=== PATIENT | female | born 1970 | race Caucasian/White ===

== ENCOUNTER 2016-11-25 23:03 | Emergency (ER) | payer OTHER ==
[~2016-11-25] VITALS: Ht 160 cm; Wt 55.1 kg
[~2016-11-25 23:03] MED LIST: ADVIN50/60 INH; ALBUAER2 INH; ATOM60CA PO; ATV/1 PO; BUPR100T8 PO; EPP3/2 IM; IBUP-1427 PO; IPRASOL34 NEB; PRLSR20 PO; PRM625 PO; TOPI100T20 PO; TOPI50TA16 PO
[2016-11-25 23:15] VITALS: TEMP 36.8; Ht 160 cm; Wt 55.1 kg
[2016-11-25] MEDS ORDERED: DiphenhydrAMINE HCL 50 MG/ML VIAL IV STA (23:37)
[2016-11-25] MEDS ORDERED: KETOROLAC TROMETHAMINE 30 MG/ML VIAL IV STA (23:37)
[2016-11-25] MEDS ORDERED: PROCHLORPERAZINE 5 MG/ML 2 ML VIAL IV STA (23:37)
[2016-11-25] MEDS ORDERED: SODIUM CHLORIDE 0.9% 1000ML 1,000 ML IV ONE (23:45)
[2016-11-25 23:55] LABS: BASO % 1.6 %; BASO ABS # 0.09 K/uL (0-0.2); COMPLETE YES; EOS % 16.6 %; HEMATOCRIT 38.9 % (37-47); LYMPH % 40.3 %; MEAN CELL VOLUME 87.8 fL (80-100); MEAN CORPUSCULAR HEMOGLOBIN 29.3 pg (25-34); MEAN CORPUSCULAR HGB CONC 33.4 g/dl (32-36); MEAN PLATELET VOLUME 11.1 fL (7.4-10.4); MONO % 4.4 %; NEUT % 37.1 %; PLATELET COUNT 218 K/uL (130-400); RED BLOOD COUNT 4.43 M/uL (4.2-5.4); WHITE BLOOD COUNT 5.71 K/uL (4.8-10.8)
[2016-11-26 00:35] LABS: THYROID STIMULATING HORMONE 1.85 uIu/ml (0.300-4.500)
[2016-11-26 00:36] LABS: ALB/GLOB RATIO 1.2 (0.9-2); BUN/CREATININE RATIO 9.7 (10-20); CREATININE 0.94 mg/dl (0.60-1.20)
[2016-11-26 00:37] LABS: MAGNESIUM 2.2 mg/dl (1.8-2.4); POTASSIUM 3.5 mmol/L (3.5-5.1)
[2016-11-26] MEDS ORDERED: SERT25TA PO (00:57)
[2016-11-26 01:58] VITALS: BP 96/59; PULSE 68; O2SAT 95
--- NOTE | 2016-11-26 07:10 | DIAGNOSTIC IMAGING REPORT ---
HEAD CT NONCONTRAST CT DOSE: 729.78 mGycm HISTORY: Headache TECHNIQUE: Multiaxial CT images of the head were performed without the use of intravenous contrast. Automated exposure control was utilized for this study. Comparison: Head CT 12/12/2015. Findings: Mild mucosal thickening within the ethmoid air cells. The mastoid air cells are clear. Scattered hypodense foci within the white matter consistent with the patient's history of multiple sclerosis. This remains unchanged. The calvarium and skull base are intact. The ventricles and sulci are within normal limits. There is no mass, hematoma, midline shift, or acute infarct. Impression: No significant change compared to the prior study. No acute intracranial abnormality. Electronically signed by: Diego Valente M.D. 11/26/2016 7:09 AM
--- NOTE | 2016-11-28 11:57 | EMERGENCY ROOM VISIT NOTE ---
History First contact with patient: 23:26 Chief Complaint: HEADACHE Stated Complaint: SEVERE MIGRAINE, WORST ONE EVER History of Present Illness The patient is a 46 year old female who presents to the Emergency Room with complaints of a severe migraine headache. The patient has a history of migraine headaches in the past, and feels this is the worst that she has ever had. Her symptoms have been slowly worsening over 4 days. She typically takes Topamax at home for prevention, however this has not relieved her symptoms. [id number] analgesics has not provided relief either. The patient rates her discomfort a 9/10. The location is similar to her normal migraine, being the right side of her head, however the intensity is much worse. She has not had recent fever or chills. No recent illness. No numbness or paresthesias. The patient has been seen intermittently in this facility for migraines. She is not on a treatment plan. Review of Systems More than 10 systems were reviewed and otherwise negative with the exception of history of present illness. Past Medical/Surgical History Medical Problems: (1) Anxiety disorder (2) Asthma (3) Bipolar disorder (4) Chronic post-traumatic stress disorder (5) Depression (6) Fibromyalgia (7) Gastroesophageal reflux disease (8) Gastroparesis (9) History of renal calculi (10) Hyperthyroidism (11) Irritable colon (12) Migraine (13) MS (multiple sclerosis) (14) Panic disorder Surgical Problems: (1) Status post appendectomy (2) Status post delivery (3) Status post hernia repair (4) Status post hysterectomy Family History Cancer FHx: seizures Heart disease Hypertension Lung disease Social History Smoking Status: Never Smoker Alcohol Use: none Drug Use: none Marital Status: single Housing Status: lives with family Occupation Status: unemployed, other Current/Historical Medications Scheduled Atomoxetine (Strattera), 60 MG PO DAILY Bupropion (Wellbutrin Sr), 100 MG PO QAM Estrogens, Conjugated (Premarin), 0.625 MG PO QAM Omeprazole (Prilosec), 20 MG PO BID Sertraline (Zoloft), 25 MG PO DAILY Topiramate (Topamax), 50 MG PO HS Topiramate (Topamax), 100 MG PO QAM Scheduled PRN Albuterol (Ventolin), 2 PUFFS INH QID PRN for Chest Tightness/Wheezing Epinephrine (Epipen), 0.3 MG IM UD PRN for ALLERGIC REACTION Fluticasone Prop/Salmeterol (Advair Diskus 500/50 60 Dose), 1 PUFF INH BID PRN for Shortness of Breath Ipratropium-Albuterol (Duoneb), 1 VIAL NEB UD PRN for asthma flare Lorazepam (Ativan), 1 MG PO TID PRN for Anxiety Allergies Coded Allergies: Chicken Allergy (Verified Allergy, Severe, THROAT SWELLS, 11/26/16) Ciprofloxacin (Verified Allergy, Severe, SWELLS UP THROAT AND CAN'T BREATHE, 11/26/16) Egg (Verified Allergy, Severe, THROAT SWELLS, 11/26/16) Poultry Meal (Verified Allergy, Severe, "[place]" -- Throat swelling, ) Soy Protein (Verified Allergy, Severe, Unknown, 11/26/16) Yellow Jacket (Verified Allergy, Severe, SWELLS THROAT, 11/26/16) Sesame Seed (Verified Allergy, Intermediate, "[place]" - Unknown rxn, ) Sumatriptan (Verified Allergy, Intermediate, throat swelling, 11/26/16) [place] Seed (Verified Allergy, Intermediate, Unknown, 11/26/16) Quinolones (Verified Allergy, Mild, ITCHY RASH ON HEAD,CHEST,ARMS DURING IV INFUSION, 11/26/16) itchy rash on head, chest, arms during IV infusion. Beef (Unverified Allergy, Unknown, UNKNOWN, 11/26/16) Fish (Unverified Allergy, Unknown, THROAT SWELLS, 11/26/16) Oxycodone (Verified Allergy, Unknown, airway edema, 11/26/16) Tomato (Verified Allergy, Unknown, ., 11/26/16) Aspirin (Verified Adverse Reaction, Mild, UPSET STOMACH, 11/26/16) Physical Exam Vital Signs Date Time Temp Pulse Resp B/P Pulse Ox O2 Delivery O2 Flow Rate FiO2 11/26/16 01:58 68 20 96/59 95 11/26/16 00:55 65 20 103/59 96 Room Air 11/25/16 23:38 69 11/25/16 23:15 36.8 71 16 120/71 99 Room Air Pain Rating (0-10): 5.0 Physical Exam VITALS: Vitals are noted on the nurse's note and reviewed by myself. Vital signs stable. GENERAL: Well-developed, well-nourished, white female, who is in no acute distress and resting comfortably. Patient is cooperative with the examination. HEAD: Normocephalic atraumatic. NECK: Supple without nuchal rigidity. No lymphadenopathy. No thyromegaly. Cervical spine is nontender. HEART: Regular rate and rhythm without murmurs gallops or rubs. LUNGS: Clear to auscultation bilaterally without wheezes, rales or rhonchi. No retractions or accessory muscle use. ABDOMEN: Positive normal bowel sounds x 4. Soft, nontender, without masses or organomegaly. No guarding or rebound tenderness. MUSCULOSKELETAL: No muscle atrophy, erythema, or edema noted. Full range of motion without joint tenderness in all extremities. NEURO: Patient was alert and oriented to person place and time. CN II through XII grossly intact. No focal neurological deficits SKIN: The skin was without rashes, erythema, edema, or bruising. Capillary reflex less than 2 seconds. Medical Decision & Procedures ER Provider Diagnostic Interpretation: HEAD CT NONCONTRAST CT DOSE: 729.78 mGycm HISTORY: Headache TECHNIQUE: Multiaxial CT images of the head were performed without the use of intravenous contrast. Automated exposure control was utilized for this study. Comparison: Head CT 12/12/2015. Findings: Mild mucosal thickening within the ethmoid air cells. The mastoid air cells are clear. Scattered hypodense foci within the white matter consistent with the patient's history of multiple sclerosis. This remains unchanged. The calvarium and skull base are intact. The ventricles and sulci are within normal limits. There is no mass, hematoma, midline shift, or acute infarct. Impression: No significant change compared to the prior study. No acute intracranial abnormality. Laboratory Results 11/25/16 23:42 Red Blood Count 4.43, Mean Corpuscular Volume 87.8, Mean Corpuscular Hemoglobin 29.3, Mean Corpuscular Hemoglobin Concent 33.4, Mean Platelet Volume 11.1, Neutrophils (%) (Auto) 37.1, Lymphocytes (%) (Auto) 40.3, Monocytes (%) (Auto) 4.4, Eosinophils (%) (Auto) 16.6, Basophils (%) (Auto) 1.6, Neutrophils # (Auto ) 2.12, Lymphocytes # (Auto) 2.30, Monocytes # (Auto) 0.25, Eosinophils # (Auto ) 0.95, Basophils # (Auto) 0.09 11/25/16 23:42 Test 11/25/16 23:42 White Blood Count 5.71 K/uL (4.8-10.8) Red Blood Count 4.43 M/uL (4.2-5.4) Hemoglobin 13.0 g/dL (12.0-16.0) Hematocrit 38.9 % (37-47) Mean Corpuscular Volume 87.8 fL (80-100) Mean Corpuscular Hemoglobin 29.3 pg (25-34) Mean Corpuscular Hemoglobin Concent 33.4 g/dl (32-36) Platelet Count 218 K/uL (130-400) Mean Platelet Volume 11.1 fL (7.4-10.4) Neutrophils (%) (Auto) 37.1 % Lymphocytes (%) (Auto) 40.3 % Monocytes (%) (Auto) 4.4 % Eosinophils (%) (Auto) 16.6 % Basophils (%) (Auto) 1.6 % Neutrophils # (Auto) 2.12 K/uL (1.4-6.5) Lymphocytes # (Auto) 2.30 K/uL (1.2-3.4) Monocytes # (Auto) 0.25 K/uL (0.11-0.59) Eosinophils # (Auto) 0.95 K/uL (0-0.5) Basophils # (Auto) 0.09 K/uL (0-0.2) RDW Standard Deviation 42.8 fL (36.4-46.3) RDW Coefficient of Variation 13.3 % (11.5-14.5) Immature Granulocyte % (Auto) 0.0 % Immature Granulocyte # (Auto) 0.00 K/uL (0.00-0.02) Anion Gap 8.0 mmol/L (3-11) Est Creatinine Clear Calc Drug Dose 62.5 ml/min Estimated GFR () 84.9 Estimated GFR (Non- 73.3 BUN/Creatinine Ratio 9.7 (10-20) Calcium Level 9.0 mg/dl (8.5-10.1) Magnesium Level 2.2 mg/dl (1.8-2.4) Total Bilirubin 0.5 mg/dl (0.2-1) Aspartate Amino Transf (AST/SGOT) 17 U/L (15-37) Alanine Aminotransferase (ALT/SGPT) 16 U/L (12-78) Alkaline Phosphatase 92 U/L (45-117) Total Protein 6.8 gm/dl (6.4-8.2) Albumin 3.7 gm/dl (3.4-5.0) Globulin 3.1 gm/dl (2.5-4.0) Albumin/Globulin Ratio 1.2 (0.9-2) Thyroid Stimulating Hormone (TSH) 1.850 uIu/ml (0.300-4.500) Chemistry Specimen Hemolysis Medications Administered Medications (Trade) Dose Ordered Sig/Robert Route Start Time Stop Time Status Last Admin Dose Admin Sodium Chloride (Nss 1000ml) 1,000 ml @ 999 mls/hr Q1H1M ONCE IV 11/25/16 23:45 11/26/16 00:45 DC 11/25/16 23:53 999 MLS/HR Diphenhydramine HCl (Benadryl Inj) 25 mg NOW STAT IV 11/25/16 23:37 11/25/16 23:39 DC 11/25/16 23:53 25 MG Prochlorperazine Edisylate (Compazine Inj) 10 mg NOW STAT IV 11/25/16 23:37 11/25/16 23:39 DC 11/25/16 23:53 10 MG Ketorolac Tromethamine (Toradol Inj) 30 mg NOW STAT IV 11/25/16 23:37 11/25/16 23:40 DC 11/25/16 23:54 30 MG ED Course Physical exam and history were performed. Nursing notes and EMR were reviewed. Patient appears to have a headache that she describes as the worst one that she has ever had. She does not present with signs of meningitis or encephalitis. IV access was established and labs were obtained. The patient was hydrated with normal saline. She was given 30 mg IV Toradol, 10 mg I V Compazine, and 25 mg IV Benadryl. She was sent to CT scan for imaging. The patient's blood work is as above and was reviewed. She does not have a significant elevated white blood cell count, anemia, bandemia, or gross electrolyte imbalance. TSH is nondiagnostic. CT scan of the head does not show acute findings. On reexamination, the patient was sleeping very comfortably in her emergency department bed. I did wake her up, and she had near complete resolution of her discomfort. I discussed the option of lumbar puncture, and we elected to defer this as the patient had significant improvement of her symptoms. This appears reasonable. I do recommend the patient follow with her primary care physician for further care and management. She was otherwise invited back to the ER with any new, worsening, or concerning symptoms. The chart was completed utilizing [employer] Speech Voice Recognition Software. Grammatical errors, random word insertions, pronoun errors, and incomplete sentences are an occasional consequence of this system due to software limitations, ambient noise, and hardware issues. Any formal questions or concerns about the content, text, or information contained within the body of this dictation should be directly addressed to the provider for clarification. . Medical Decision The differential diagnosis includes, but is not limited to: acute intracranial bleed, meningitis, encephalitis, mass or mass effect, sinusitis, infection, tumor, headache, temporal arteritis and carbon monoxide exposure, and migraine. Impression Primary Impression: Headache Departure Information Dispostion Home / Self-Care Condition GOOD Referrals Miesha Robison D.O. (PCP) Forms HOME CARE DOCUMENTATION FORM, IMPORTANT VISIT INFORMATION Patient Instructions A Signature Page, [facility] [place] [employer] Additional Instructions You were seen and evaluated today on an emergency basis only. This is not a substitute for, or an effort to provide, complete comprehensive medical care. It is not possible to recognize and treat all injuries or illnesses in a single emergency department visit. For this reason it is recommended that you followup with your primary care physician this week for ongoing care and evaluation. DO NOT drive, drink alcohol, operate machinery, or perform dangerous activities today. You were given medications in the ER that can affect your ability to safely function or operate a vehicle. Rest today in a quiet, peaceful, dark environment and get a full 8-10 hrs of sleep tonight. Avoid loud noises, smoke/smoking, alcohol, bright lights, stress, or physical exertion today to minimize the chance the headache may return. Continue current medications. Ibuprofen(Motrin, Advil) may be used for fever or pain. Use 600mg every six hours as needed. Take with food. Avoid using more than 2400mg in a 24 hour period. Do not use 2400mg per day for more than three consecutive days without physician direction. Prolonged inappropriate use can lead to stomach upset or ulcers. (AND/OR) Acetaminophen(Tylenol) may be used for fever or pain. Use 1000mg every six hours as needed. Avoid using more than 4000mg in a 24 hour period. Return to the ER for passing out, worsening headache, vision problems, neck stiffness/pain, fevers, vomiting, worsening of your condition, or as needed.
[2016-12-23] MEDS ORDERED: ATOM60CA PO (10:49)
[2016-12-23] MEDS ORDERED: PRLSR20 PO (10:49)
[2016-12-23] MEDS ORDERED: KETO10TA PO (10:49)
[2016-12-23] MEDS ORDERED: CLR10 PO (10:49)
[2016-12-23] MEDS ORDERED: LORA-741 PO (10:49)
[2016-12-23] MEDS ORDERED: PROM25TA9 PO (10:49)
[2016-12-23] MEDS ORDERED: FLVHFA44 INH (10:49)
[2016-12-23] MEDS ORDERED: ALBINS/ INH (10:49)
[2016-12-23] MEDS ORDERED: LAMO25TA PO (10:49)
[2016-12-23] MEDS ORDERED: CHOL1TAB42 PO (10:50)
== END 2016-11-26 02:00 | disposition home or self-care (01) ==
LOC: C.EDB 23:05
DX: R51 Headache (principal); F41.9 Anxiety disorder, unspecified; F31.9 Bipolar disorder, unspecified; F32.9 Major depressive disorder, single episode, unspecified; K31.84 Gastroparesis; K21.9 Gastro-esophageal reflux disease without esophagitis; G35 Multiple sclerosis; J45.909 Unspecified asthma, uncomplicated; E05.90 Thyrotoxicosis, unspecified without thyrotoxic crisis or storm; Z90.710 Acquired absence of both cervix and uterus; Z98.890 Other specified postprocedural states; Z79.899 Other long term (current) drug therapy; Z88.5 Allergy status to narcotic agent; Z88.6 Allergy status to analgesic agent; Z88.8 Allergy status to other drugs, medicaments and biological substances; Z91.018 Allergy to other foods; Z80.9 Family history of malignant neoplasm, unspecified; Z82.0 Family history of epilepsy and other diseases of the nervous system; Z82.49 Family history of ischemic heart disease and other diseases of the circulatory system

== ENCOUNTER → 2016-12-30 | Day surgery (SDC) | payer OTHER ==
[2016-12-23 10:53] VITALS: BMI 22.0
[~2016-12-30] VITALS: Ht 160 cm; Wt 55.8 kg
[~2016-12-30] MED LIST changes: -ADVIN50/60 INH; +ALBINS/ INH; -ALBUAER2 INH; -ATV/1 PO; +CHOL1TAB42 PO; +CLR10 PO; +FLVHFA44 INH; -IBUP-1427 PO; -IPRASOL34 NEB; +KETO10TA PO; +LAMO25TA PO; +LIDOCAINE HCL 2% 2 ML VIAL (20MG/ML) ONE; +LORA-741 PO; +MIDAZOLAM HCL 1 MG/ML 2ML VIAL ONE; +PROM25TA9 PO; +PROPOFOL IV EMULSION 10 MG/ML 20 ML VIAL IV ONE; +SERT25TA PO; -TOPI100T20 PO; -TOPI50TA16 PO
[2016-12-30 10:10] VITALS: Ht 160 cm; Wt 55.8 kg
--- NOTE | 2016-12-30 12:05 | GI REPORT ---
Procedure Date: 12/30/2016 10:55 AM Procedure: Upper GI endoscopy Indications: Dysphagia Medicines: See the Anesthesia note for documentation of the administered medications Complications: No immediate complications. Estimated Blood Loss: Estimated blood loss: none. Procedure: Pre-Anesthesia Assessment: - ASA Grade Assessment: III - A patient with severe systemic disease. After obtaining informed consent, the endoscope was passed under direct vision. Throughout the procedure, the patient's blood pressure, pulse, and oxygen saturations were monitored continuously. The scope was introduced through the mouth, and advanced to the second part of duodenum. The upper GI endoscopy was accomplished without difficulty. The patient tolerated the procedure well. Findings: Mucosal changes including ringed esophagus and longitudinal furrows were found in the entire esophagus. No obstruction was noted. A guidewire was placed and the scope was withdrawn. Dilation was performed with a Savary dilator with no resistance at 15 mm, 16 mm, 17 mm and 18 mm. The scope was re-introduced after passage of each of the dilators. There was no trauma with passage of the 15 mm, 16 mm, 17, mm dilators. There were multiple tears throughout the esophagus after passage of the 18 mm dilator. Biopsies were taken with a cold forceps for histology. The entire examined stomach was normal. Biopsies were taken with a cold forceps for histology. The examined duodenum was normal. Biopsies were taken with a cold forceps for histology. Impression: - Esophageal mucosal changes consistent with eosinophilic esophagitis. Dilated. Biopsied. - Normal stomach. Biopsied. - Normal examined duodenum. Biopsied. Recommendation: - Await pathology results. Discharge pt home. Clear liquids only today, then adv diet as tolerated. Cont PPI, topical steroids. Dayne Burrell M.D. Dayne Burrell MD 12/30/2016 12:05:02 PM This report has been signed electronically. Note Initiated On: 12/30/2016 10:55 AM I attest to the content of the Intraoperative Record and orders documented therein, exceptions below
--- NOTE | 2016-12-30 13:13 | Endo History and Physical ---
History & Physical Date of Service: Dec 30, 2016. Chief Complaint: HX OF COLON POLYPS AND DYSPHAGIA Referring Physician: DR. PAGAN History of Present Illness Eoe, diarrhea Past Medical History Other Psy. Disorders, Asthma, Gastrointestinal Disorder, Anxiety, Reflux, Thyroid Disease, Other, Depression Past Surgical History Hx Cardiac Surgery: No Hx Internal Defibrillator: No Hx Pacemaker: No Hx Abdominal Surgery: Yes (JAG/BSO, , HERNIA REPAIR, LAP APPY, LAP REMI) Hx of Implantable Prosthesis: No Hx Post-Op Nausea and Vomiting: No Hx Cancer Surgery: No Hx Thoracic Surgery: No Hx Orthopedic: No Hx Urinary Tract Surgery: Yes (LITHOTRIPSY) Family History Colon CA Social History Smoking Status: Never Smoker Hx Substance Use: No Hx Alcohol Use: Yes (SOCIALLY) Allergies Coded Allergies: Chicken Allergy (Verified Allergy, Severe, THROAT SWELLS, 12/23/16) Ciprofloxacin (Verified Allergy, Severe, SWELLS UP THROAT AND CAN'T BREATHE, 12/23/16) Egg (Verified Allergy, Severe, THROAT SWELLS, 12/23/16) Poultry Meal (Verified Allergy, Severe, "[place]" -- Throat swelling, ) Soy Protein (Verified Allergy, Severe, Unknown, 12/23/16) Yellow Jacket (Verified Allergy, Severe, SWELLS THROAT, 12/23/16) Sesame Seed (Verified Allergy, Intermediate, "Sesame" - Unknown rxn, ) Sumatriptan (Verified Allergy, Intermediate, throat swelling, 12/23/16) [place] Seed (Verified Allergy, Intermediate, Unknown, 12/23/16) Quinolones (Verified Allergy, Mild, ITCHY RASH ON HEAD,CHEST,ARMS DURING IV INFUSION, 12/23/16) itchy rash on head, chest, arms during IV infusion. Beef (Verified Allergy, Unknown, UNKNOWN, 12/30/16) Diphenhydramine (Verified Allergy, Unknown, IV GIVEN-"FELT DOPED UP AFTER INJECTED", 12/23/16) Fish (Verified Allergy, Unknown, THROAT SWELLS, 12/30/16) Oxycodone (Verified Allergy, Unknown, airway edema, 12/23/16) Tomato (Verified Allergy, Unknown, ., 12/23/16) Aspirin (Verified Adverse Reaction, Mild, UPSET STOMACH, 12/23/16) Current Medications Reported Home Medications Medications Dose Route/Sig Max Daily Dose Days Date Category Dose Instructions Vitamin D (Cholecalciferol) 5,000 Unit Tab 1 Tab PO QAM 12/23/16 Reported Lamictal (Lamotrigine) 25 Mg Tab 25 Mg PO BID 12/23/16 Reported INCREASE DOSAGE PER INSTRUCTIONS. Toradol (Ketorolac Tromethamine) 10 Mg Tab 10 Mg PO DIRECTED PRN 12/23/16 Reported Phenergan (Promethazine HCl) 25 Mg Tab 25 Mg PO Q4H PRN 12/23/16 Reported Proventil 0.083% 2.5MG/3ML (Albuterol Sulf) 2.5 Mg/3 Ml Nebu 2.5 Mg INH QID PRN 12/23/16 Reported Flovent Hfa (Fluticasone Propionate) 120 Puffs/5280 Mcg Aero 2 Puffs INH BID PRN 30 12/23/16 Reported Claritin (Loratadine) 10 Mg Tab 10 Mg PO QAM 12/23/16 Reported Ativan (Lorazepam) 0.5 Mg Tab 0.5 Mg PO TID PRN 12/23/16 Reported Strattera (Atomoxetine HCl) 60 Mg Cap 60 Mg PO QAM 12/23/16 Reported Prilosec (Omeprazole) 20 Mg Capcr 20 Mg PO BID 12/23/16 Reported Zoloft (Sertraline HCl) 25 Mg Tab 25 Mg PO QAM 11/26/16 Reported Wellbutrin Sr (Bupropion HCl) 100 Mg Ertab 100 Mg PO QAM 05/27/16 Reported Epipen (Epinephrine) 0.3 Mg/0.3 Ml Inj 0.3 Mg IM UD PRN 11/03/12 Reported Premarin (Estrogens Conjugated) 0.625 Mg Tab 0.625 Mg PO QAM 09/07/09 Reported Vital Signs Weight (Kilograms): 55.8 Height (Feet): 5 Height (Inches): 3 Date Time Temp Pulse Resp B/P Pulse Ox O2 Delivery O2 Flow Rate FiO2 12/30/16 12:58 71 20 103/65 98 Room Air 12/30/16 12:33 58 20 116/65 98 Room Air 12/30/16 12:18 64 20 116/65 97 Room Air 12/30/16 12:01 69 20 137/61 98 Room Air 12/30/16 10:17 37.1 65 20 131/70 99 Room Air Physical Exam General Appearance: no apparent distress Respiratory/Chest: Respiratory effort: no dyspnea Auscultation: breath sounds normal, CTA except as noted Cardiovascular: Heart Auscultation: RRR Abdomen: Bowel Sounds: normal Assessment and Plan EGD, cscopy
--- NOTE | 2016-12-30 13:14 | Discharge Instructions ---
Endoscopy Patient Instructions Date / Procedure(s) Performed Dec 30, 2016. Colonoscopy, EGD Allergy Information Coded Allergies: Chicken Allergy (Verified Allergy, Severe, THROAT SWELLS, 12/23/16) Ciprofloxacin (Verified Allergy, Severe, SWELLS UP THROAT AND CAN'T BREATHE, 12/23/16) Egg (Verified Allergy, Severe, THROAT SWELLS, 12/23/16) Poultry Meal (Verified Allergy, Severe, "[place]" -- Throat swelling, ) Soy Protein (Verified Allergy, Severe, Unknown, 12/23/16) Yellow Jacket (Verified Allergy, Severe, SWELLS THROAT, 12/23/16) Sesame Seed (Verified Allergy, Intermediate, "[place]" - Unknown rxn, ) Sumatriptan (Verified Allergy, Intermediate, throat swelling, 12/23/16) [place] Seed (Verified Allergy, Intermediate, Unknown, 12/23/16) Quinolones (Verified Allergy, Mild, ITCHY RASH ON HEAD,CHEST,ARMS DURING IV INFUSION, 12/23/16) itchy rash on head, chest, arms during IV infusion. Beef (Verified Allergy, Unknown, UNKNOWN, 12/30/16) Diphenhydramine (Verified Allergy, Unknown, IV GIVEN-"FELT DOPED UP AFTER INJECTED", 12/23/16) Fish (Verified Allergy, Unknown, THROAT SWELLS, 12/30/16) Oxycodone (Verified Allergy, Unknown, airway edema, 12/23/16) Tomato (Verified Allergy, Unknown, ., 12/23/16) Aspirin (Verified Adverse Reaction, Mild, UPSET STOMACH, 12/23/16) Discharge Date / Findings Dec 30, 2016. Eosinophilic esophagitis - dilated Diminutive colon polyp Provider Instructions Activity Restrictions - No exercising or heavy lifting for 24 hours. - Do not drink alcohol the day of the procedure. - Do not drive a car or operate machinery until the day after the procedure. - Do not make any important decisions or sign important papers in 24 hours after the procedure. Following Day: - Return to full activity which may include returning to work/school. Diet Clear liquids only today. Then tomorrow, advance your diet slowly. Treatment For Common After Affects For mild abdominal pain, bloating, or excessive gas: - Rest - Eat lightly - Lie on right side Follow-Up Information Follow-up with DR. PAGAN as scheduled Anesthesia Information What You Should Know You have had a procedure that required some medicine to reduce anxiety and discomfort. This treatment is called moderate sedation. After receiving the treatment, you may be sleepy, but you will be able to breathe on your own. The effects of the treatment may last for several hours. Follow these instructions along with Activity/Diet recommendations noted above: * Do NOT do anything where dizziness or clumsiness would be dangerous. * Rest quietly at home today, then you can be up and about tomorrow. * Have a responsible person stay with you the rest of today. * You may have had an I.V. today. If so, you may take the dressing off later today. Recommendations Call your doctor if: * Trouble breathing * Continuous vomiting for more than 24 hours * Temperature above 101 degrees * Severe abdominal pain or bloating * Pain not relieved by pain medicine ordered * There is increased drainage or redness from any incision * A large amount of rectal bleeding greater than 2-3 tablespoons. (If you had a polyp/s removed or have hemorrhoids, a small amount of blood - from the rectum is to be expected.) * You have any unanswered questions or concerns. IN THE EVENT OF A SERIOUS EMERGENCY, GO TO THE NEAREST EMERGENCY ROOM Your discharge instructions were prepared by provider Dayne Ortez. Patient Instructions Signature Page Oneida Cortes Patient (or Guardian) Signature/Date: I have read and understand the instructions given to me by my caregivers. Caregiver/RN/Doctor Signature/Date: The above-named patient and/or guardian has received patient instructions on this date. + Original Patient Signature Page (only) stays with chart. Please make copy for patient.
[2016-12-30 13:17] VITALS: BP 103/65; PULSE 69; O2SAT 98
--- NOTE | 2016-12-30 14:02 | Anesthesiology Progress Note ---
Anesthesia Post Op Note Date & Time Dec 30, 2016 at 14:03 Vital Signs Pain Intensity: 0 Vital Signs Past 12 Hours Date Time Temp Pulse Resp B/P Pulse Ox O2 Delivery O2 Flow Rate FiO2 12/30/16 13:17 69 20 103/65 98 Room Air 12/30/16 12:58 71 20 108/62 98 Room Air 12/30/16 12:33 58 20 116/65 98 Room Air 12/30/16 12:18 64 20 116/65 97 Room Air 12/30/16 12:01 69 20 137/61 98 Room Air 12/30/16 10:17 37.1 65 20 131/70 99 Room Air Notes Mental Status: alert / awake / arousable, participated in evaluation Pt Amnestic to Procedure: Yes Nausea / Vomiting: adequately controlled Pain: adequately controlled Airway Patency, RR, SpO2: stable & adequate BP & HR: stable & adequate Hydration State: stable & adequate Anesthetic Complications: no major complications apparent
[2017-01-02 00:33] LABS: O&P GIARDIA AG NOT DETECTED (NOT DETECTED)
== END | disposition home or self-care (01) ==
LOC: C.GI 09:27
PROVIDERS: ATTEND Internal Medicine Gastroenterology
DX: R19.7 Diarrhea, unspecified (principal); K20.0 Eosinophilic esophagitis; K63.89 Other specified diseases of intestine; K29.70 Gastritis, unspecified, without bleeding; J45.909 Unspecified asthma, uncomplicated; K21.9 Gastro-esophageal reflux disease without esophagitis; E07.9 Disorder of thyroid, unspecified; F32.9 Major depressive disorder, single episode, unspecified; Z90.49 Acquired absence of other specified parts of digestive tract; Z98.890 Other specified postprocedural states; Z80.0 Family history of malignant neoplasm of digestive organs; Z88.1 Allergy status to other antibiotic agents; Z88.5 Allergy status to narcotic agent; Z88.8 Allergy status to other drugs, medicaments and biological substances

== ENCOUNTER → 2017-04-12 | Outpatient (CLI) | payer OTHER ==
[~2017-04-12] MED LIST changes: +BUPR200T2 PO; +FRCT/ PO; +GADAVIST IV PRN; +IPRASOL4 INH; -LIDOCAINE HCL 2% 2 ML VIAL (20MG/ML) ONE; -MIDAZOLAM HCL 1 MG/ML 2ML VIAL ONE; +MONT1TAB3 PO; -PROPOFOL IV EMULSION 10 MG/ML 20 ML VIAL IV ONE; +TOPI100T20 PO; +ZNTT/150 PO
--- NOTE | 2017-04-12 15:56 | DIAGNOSTIC IMAGING REPORT ---
BRAIN COMBO FOR MS CLINICAL HISTORY: Left arm numbness. 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 COMPARISON STUDY: MRI of the brain December 12, [address] November 26, 2016. TECHNIQUE: Utilizing a 1.5 Greta magnet, multiplanar, multiecho imaging of the brain was performed pre and postcontrast administration according to the multiple sclerosis protocol. Injection of 5.5 cc of Gadavist IV was uneventful. FINDINGS: There are no areas of restricted diffusion. No acute intracranial hemorrhage, midline shift or mass effect is present. Ventricular system is normal. Basilar cisterns are patent. There are no extra axial collections. Flow-voids for the major intracranial vessels are present. Numerous white matter T2 hyperintense foci are similar to exam of December 12, 2015. No new areas of signal abnormality are present. There is no parenchymal enhancement to suggest active demyelination by MRI. Calvarial signal is normal. Orbits and sinuses are unremarkable. IMPRESSION: 1. No acute intracranial findings. 2. No change in numerous T2 hyperintense foci since MRI of December 12, 2015. These remain nonspecific but could be seen in the setting of demyelinating disease. No evidence for active demyelination by MRI. Electronically signed by: Hank Mac M.D. 04/12/2017 3:55 PM Dictated Date/Time: 04/12/2017 3:50 PM
== END | disposition home or self-care (01) ==
LOC: C.MRI 14:17
PROVIDERS: ATTEND Psychiatry & Neurology Neurology
DX: G37.9 Demyelinating disease of central nervous system, unspecified (principal); R25.1 Tremor, unspecified; R20.0 Anesthesia of skin

== ENCOUNTER → 2017-05-31 | Outpatient (CLI) | payer OTHER ==
[~2017-05-31] MED LIST changes: -BUPR200T2 PO; -FRCT/ PO; -GADAVIST IV PRN; -IPRASOL4 INH; -MONT1TAB3 PO; -TOPI100T20 PO; -ZNTT/150 PO
--- NOTE | 2017-05-31 14:30 | MAMMOGRAPHY REPORT ---
BILATERAL DIGITAL DIAGNOSTIC MAMMOGRAM TOMOSYNTHESIS WITH CAD: 05/31/2017 CLINICAL HISTORY: 47-year-old woman presents for follow-up of regional microcalcifications in the rig ht upper outer quadrant. Also time of annual bilateral screening exam. Family history of breast can cer = paternal grandmother, paternal aunt and paternal first cousin. TECHNIQUE: Bilateral CC and MLO 2-D digital anterolisthesis images, spot magnification right CC and M L views were obtained. Current study was also evaluated with a Computer Aided Detection (CAD) system . COMPARISON: Comparison is made to exams dated: 10/30/2016 mammogram, 04/30/2016 mammogram, 04/16/2016 ma mmogram, 03/05/2010 mammogram, 02/27/2010 mammogram, and 08/18/2006 mammogram - [facility]. BREAST COMPOSITION: There are scattered areas of fibroglandular density in both breasts. FINDINGS: There are a few round microcalcifications scattered bilaterally that appears similar datin g back to the 2015 mammograms, but are increased compared to the 02/27/2010 mammograms. No obvious n ew mass, developing asymmetry or focal area of architectural distortion is seen. Spot magnification views of the right breast redemonstrate regional punctate microcalcifications in the upper outer midd le one third of the breast. These appear very similar to the spot magnification views performed 07/2016 and 04/30/2016 and most likely represent benign fibrocystic change. However after discussing these findings and images with the patient, given that none of the calcifications were seen on the 20 10 exams and with her family history of breast cancer, we will opt to sample the calcifications as op posed to continued follow-up with spot magnification views. IMPRESSION: ACR BI-RADS CATEGORY 4B: INTERMEDIATE SUSPICION FOR MALIGNANCY 1. Right breast stereotactic guided biopsy is recommended for punctate regional microcalcifications in the upper outer quadrant. Although the microcalcifications do not appear significantly changed ba sed on spot magnification views dating back to April 2016, they were not present on the 2009 mammogram s and with her family history of breast cancer she would prefer to sample at this time. 2. Stable mammographic appearance of the left breast, without mammographic evidence of lesions a. A dvise follow-up in 1 year. These results and recommendations were discussed with the patient at the time of the exam. She tenta tively scheduled the right breast stereotactic biopsy prior to leaving our department. Approximately 10% of breast cancers are not detected with mammography. A negative mammographic report should not delay biopsy if a clinically suggestive mass is present. Lizzette Macias M.D. ay/:05/31/2017 11:49:40 Personal Injury Attorney: Maya BRADSHAW(Rogelio)(Faith), [facility] letter sent: Abnormal 4/5 BI-RADS Code: ACR BI-RADS Category 4B: Intermediate Suspicion For Malignancy
== END | disposition home or self-care (01) ==
LOC: C.MAMM 11:02
PROVIDERS: ATTEND Student in an Organized Health Care Education/Training Program
DX: R92.0 Mammographic microcalcification found on diagnostic imaging of breast (principal)

== ENCOUNTER → 2017-06-15 | Outpatient (CLI) | payer OTHER ==
--- NOTE | 2017-06-15 13:23 | Discharge Instructions ---
Discharge Instructions Procedure Procedure Date: Jun 15, 2017. Reason for visit: Right Calcs. Discharge Discharge Date: Jun 15, 2017. Discharge Diagnosis: post right breast stereotactic guided biopsy Instructions Activity Recommendations: Additional Limitations (see below) Return to School/Work: no limitations Recommended Home Diet: No Limitations Provider Instructions: ACTIVITY RECOMMENDATIONS: * No lifting, pushing, pulling or exercising the affected side for three days. RETURN TO SCHOOL/WORK: * You may return to work/school after the procedure, but do not perform any strenuous activities for 24 to 48 hours. MEDICATIONS: * Tylenol (two 325 mg) every four to six hours if needed for mild pain (if not allergic to Tylenol). DIET: * Resume previous diet. SPECIAL CARE INSTRUCTIONS: * Keep biopsy site dry for 24 hours. May shower after 24 hours, but do not soak (bathe) incision. * May remove Tegaderm (plastic patch) tomorrow AFTER showering. * Leave the steri-strips on for one week. Allow the steri-strips to fall off by themselves. If not off after one week, you may remove them. You may place a Bandaid crosswise over the strips, if desired. * Apply ice 10 minutes on and 10 minutes off as needed. * Wear a bra at bedtime to sleep more comfortably for 2-3 days. * Your referring physician should have the results after approximately 5 to 7 business days. * Call for unusual bleeding, fever, drainage, etc or if you have any questions call [phone] during normal business hours or after hours call Dr Macias, . FOLLOW UP VISIT: Follow-up with Referring Physician as scheduled. Allergies Coded Allergies: Chicken Allergy (Verified Allergy, Severe, THROAT SWELLS, 12/23/16) Ciprofloxacin (Verified Allergy, Severe, SWELLS UP THROAT AND CAN'T BREATHE, 12/23/16) Egg (Verified Allergy, Severe, THROAT SWELLS, 12/23/16) Poultry Meal (Verified Allergy, Severe, "[place]" -- Throat swelling, ) Soy Protein (Verified Allergy, Severe, Unknown, 12/23/16) Yellow Jacket (Verified Allergy, Severe, SWELLS THROAT, 12/23/16) Sesame Seed (Verified Allergy, Intermediate, "Sesame" - Unknown rxn, ) Sumatriptan (Verified Allergy, Intermediate, throat swelling, 12/23/16) [place] Seed (Verified Allergy, Intermediate, Unknown, 12/23/16) Quinolones (Verified Allergy, Mild, ITCHY RASH ON HEAD,CHEST,ARMS DURING IV INFUSION, 12/23/16) itchy rash on head, chest, arms during IV infusion. Beef (Verified Allergy, Unknown, UNKNOWN, 12/30/16) Diphenhydramine (Verified Allergy, Unknown, IV GIVEN-"FELT DOPED UP AFTER INJECTED", 12/23/16) Fish (Verified Allergy, Unknown, THROAT SWELLS, 12/30/16) Oxycodone (Verified Allergy, Unknown, airway edema, 12/23/16) Tomato (Verified Allergy, Unknown, ., 12/23/16) Aspirin (Verified Adverse Reaction, Mild, UPSET STOMACH, 12/23/16) [place] Recommendations: Call your doctor if: * Temperature above 101 degrees * Pain not relieved by pain medicine ordered * There is increased drainage or redness from any incision * You have any unanswered questions or concerns. Your Doctors Instructions noted above were prepared by provider Lizzette Macias. Patient Signature Section: Patient Instructions Signature Page Oneida Cortes Patient (or Guardian) Signature/Date: I have read and understand the instructions given to me by my caregivers. Caregiver/RN/Doctor Signature/Date: The above-named patient and/or guardian has received patient instructions on this date. + Original Patient Signature Page (only) stays with chart. Please make copy for patient.
--- NOTE | 2017-06-15 13:32 | MAMMOGRAPHY REPORT ---
UNILATERAL RIGHT DIGITAL DIAGNOSTIC MAMMOGRAM: 06/15/2017 CLINICAL HISTORY: Status post stereotactic biopsy of a grouping of punctate microcalcifications in th e upper outer anterior right breast. Please refer to the report from right breast stereotactic biopsy performed at the same time for full detail. IMPRESSION: POST PROCEDURE IMAGING FOR MARKER PLACEMENT Please refer to the report from right breast stereotactic biopsy performed at the same time for full detail. Approximately 10% of breast cancers are not detected with mammography. A negative mammographic report should not delay biopsy if a clinically suggestive mass is present. Lizzette Macias M.D. ay/:06/15/2017 13:24:56 Clinical Research Monitor: Mary BRADSHAW(Rogelio)(M), [facility] BI-RADS Code: Post Procedure Imaging For Marker Placement
--- NOTE | 2017-06-15 15:51 | MAMMOGRAPHY REPORT ---
STEREOTACTIC GUIDED BIOPSY RIGHT BREAST: 06/15/2017 CLINICAL HISTORY: Indeterminate clustered punctate microcalcifications in the upper outer middle to a nterior right breast. Patient presents for stereotactic biopsy for definitive characterization. Fam deven history of breast cancer. COMPARISON: Comparison is made to exams dated: 05/31/2017 mammogram, 10/30/2016 mammogram, 04/30/2016 ma mmogram, 04/16/2016 mammogram, 03/05/2010 mammogram, and 02/27/2010 mammogram - [facility]. PATIENT CONSENT: After explaining the risks, benefits and alternatives of the procedure to the patien t, informed consent was obtained both verbally and in writing. Specific risks include: Bleeding, inf ection, puncture of adjacent structure, pain, nontarget biopsy, sampling error, metal allergy and med ication reaction. PROCEDURE DESCRIPTION: A time-out was performed and the right breast was confirmed as the site of bio psy. The patient was placed prone on the stereotactic biopsy table and the breast was placed in CC fr om above compression. A parent educator image was obtained that demonstrated the clustered microcalcifications in question. They are amenable to sterotactic biopsy. Then +15 and -15 stereo pair images were obt ained. The calcifications were targeted utilizing the coordinates obtained by the computer. The skin was prepped with Betadine. 1% Lidocaine with and without epinipherine was administered as local anes thesia. A small skin incision was made. Through the incision, the needle was inserted to the depth d etermined by the computer. 6 samples were obtained using a re3Diva 9-gauge vacuum-assisted biopsy device. The specimen radiograph demonstrated several technical support representative microcalcifications, there fore, a metallic marker was placed at the biopsy site. There was no immediate complication. Hemostasi s was achieved after several minutes of manual compression. The samples were sent to pathology in 1 appropriately labeled container. Postprocedure CC and ML views of the right breast were obtained. There is a new dumbbell-shaped met allic biopsy marker and no significant hematoma in the upper outer middle one third of the breast at the site of the biopsied microcalcifications. There is superior displacement of the biopsy marker cl ip on the post procedure ML view by 15 mm, likely due to accordion effect. IMPRESSION: STEREOTACTIC GUIDED BIOPSY Status post right breast stereotactic guided biopsy of clustered punctate microcavitation seen in the upper outer quadrant, with biopsy marker placed at the site. The patient will receive notification of the biopsy results from her referring physician. Lizzette Macias M.D. ay/:06/15/2017 13:41:56 Attending Technologist: Maisha Bellamy RT(R)(M), [facility] Smash Hand: Mray Eid RT(R)(M), [facility]
== END | disposition home or self-care (01) ==
LOC: C.MAMM 12:24
PROVIDERS: ATTEND Student in an Organized Health Care Education/Training Program
DX: R92.0 Mammographic microcalcification found on diagnostic imaging of breast (principal)

== ENCOUNTER → 2017-10-18 | Day surgery (SDC) | payer OTHER ==
[2017-10-13 08:59] VITALS: Ht 158.8 cm
[~2017-10-18] VITALS: Ht 158.8 cm
[~2017-10-18] MED LIST changes: -ALBINS/ INH; -ATOM60CA PO; +BENZOCAIN/TETRACA/BUTAM SPRAY 200 APPLN/20 GM SPRY ONE; -BUPR100T8 PO; +BUPR200T2 PO; +ETOMIDATE 2 MG/ML 20 ML VIAL IV ONE; +FRCT/ PO; +IPRASOL4 INH; -KETO10TA PO; -LAMO25TA PO; +LIDOCAINE HCL 2% 2 ML VIAL (20MG/ML) ONE; -LORA-741 PO; +MONT1TAB3 PO; -PRM625 PO; +PROPOFOL IV EMULSION 10 MG/ML 20 ML VIAL IV ONE; -SERT25TA PO; +SODIUM CHLORIDE 0.9% 500ML 500 ML IV ONE; +TOPI100T20 PO; +ZNTT/150 PO
--- NOTE | 2017-10-18 10:46 | Endo History and Physical ---
History & Physical Date of Service: Oct 18, 2017. Chief Complaint: Eosinphilic Esophagitis, GERD Referring Physician: Ricki History of Present Illness Eoe Past Medical History Other Psy. Disorders, Asthma, Gastrointestinal Disorder, Anxiety, Reflux, Thyroid Disease, Other, Depression Past Surgical History Hx Cardiac Surgery: No Hx Internal Defibrillator: No Hx Pacemaker: No Hx Abdominal Surgery: Yes (JAG BSO, , HERNIA REPAIR, LAP APPY, LAP REMI, D&C) Hx of Implantable Prosthesis: No Hx Post-Op Nausea and Vomiting: No Hx Cancer Surgery: No Hx Thoracic Surgery: No Hx Orthopedic: No Hx Urinary Tract Surgery: Yes (LITHOTRIPSY) Family History Colon CA Social History Smoking Status: Never Smoker Hx Substance Use: No Hx Alcohol Use: No Allergies Coded Allergies: Chicken Allergy (Verified Allergy, Severe, THROAT SWELLS, 10/13/17) Ciprofloxacin (Verified Allergy, Severe, SWELLS UP THROAT AND CAN'T BREATHE, 10/13/17) Egg (Verified Allergy, Severe, THROAT SWELLS, 10/13/17) Poultry Meal (Verified Allergy, Severe, "[place]" -- Throat swelling, 10/13) Soy Protein (Verified Allergy, Severe, Unknown, 10/13/17) Yellow Jacket (Verified Allergy, Severe, SWELLS THROAT, 10/13/17) Sesame Seed (Verified Allergy, Intermediate, "Sesame" - Unknown rxn, 10/13) Sumatriptan (Verified Allergy, Intermediate, throat swelling, 10/13/17) [place] Seed (Verified Allergy, Intermediate, Unknown, 10/13/17) Quinolones (Verified Allergy, Mild, ITCHY RASH ON HEAD,CHEST,ARMS DURING IV INFUSION, 10/13/17) itchy rash on head, chest, arms during IV infusion. Beef (Verified Allergy, Unknown, UNKNOWN, 10/13/17) Diphenhydramine (Verified Allergy, Unknown, IV GIVEN-"FELT DOPED UP AFTER INJECTED", 10/13/17) Fish (Verified Allergy, Unknown, THROAT SWELLS, 10/13/17) Oxycodone (Verified Allergy, Unknown, airway edema, 10/13/17) Tomato (Verified Allergy, Unknown, ., 10/13/17) Aspirin (Verified Adverse Reaction, Mild, UPSET STOMACH, 10/13/17) Current Medications Reported Home Medications Medications Dose Route/Sig Max Daily Dose Days Date Category Fioricet (Acetaminophen/Butalbital/Caffeine) 1 Ea Tab 1 Tab PO UD PRN 10/13/17 Reported Topamax (Topiramate) 100 Mg Tab 100 Mg PO BID 10/13/17 Reported Duoneb (Ipratropium-Albuterol) 3 Ml Nebu 1 Treatment INH Q4H PRN 10/13/17 Reported Singulair (Montelukast Sodium) 10 Mg Tab 10 Mg PO HS 10/13/17 Reported Zantac (Ranitidine HCl) 150 Mg Tab 150 Mg PO BID 10/13/17 Reported Wellbutrin Sr (Bupropion HCl) 200 Mg Ertab 200 Mg PO QPM 10/13/17 Reported Vitamin D (Cholecalciferol) 5,000 Unit Tab 1 Tab PO QPM 12/23/16 Reported Phenergan (Promethazine HCl) 25 Mg Tab 25 Mg PO TID PRN 12/23/16 Reported Flovent Hfa (Fluticasone Propionate) 120 Puffs/5280 Mcg Aero 2 Puffs INH BID PRN 12/23/16 Reported Claritin (Loratadine) 10 Mg Tab 10 Mg PO QAM 12/23/16 Reported Prilosec (Omeprazole) 20 Mg Capcr 20 Mg PO BID 12/23/16 Reported Epipen (Epinephrine) 0.3 Mg/0.3 Ml Inj 0.3 Mg IM UD PRN 11/03/12 Reported Vital Signs Weight (Kilograms): 0 Height (Feet): 5 Height (Inches): 2.5 Date Time Temp Pulse Resp B/P (MAP) Pulse Ox O2 Delivery O2 Flow Rate FiO2 10/18/17 10:09 36.9 75 18 118/63 (81) 98 Room Air Physical Exam General Appearance: no apparent distress Respiratory/Chest: Respiratory effort: no dyspnea Cardiovascular: Heart Auscultation: RRR Abdomen: Inspection & Palpation: soft Assessment and Plan Dysphagia - EGD
--- NOTE | 2017-10-18 11:22 | Discharge Instructions ---
Endoscopy Patient Instructions Date / Procedure(s) Performed Oct 18, 2017. EGD Allergy Information Coded Allergies: Chicken Allergy (Verified Allergy, Severe, THROAT SWELLS, 10/13/17) Ciprofloxacin (Verified Allergy, Severe, SWELLS UP THROAT AND CAN'T BREATHE, 10/13/17) Egg (Verified Allergy, Severe, THROAT SWELLS, 10/13/17) Poultry Meal (Verified Allergy, Severe, "[place]" -- Throat swelling, 10/13) Soy Protein (Verified Allergy, Severe, Unknown, 10/13/17) Yellow Jacket (Verified Allergy, Severe, SWELLS THROAT, 10/13/17) Sesame Seed (Verified Allergy, Intermediate, "Sesame" - Unknown rxn, 10/13) Sumatriptan (Verified Allergy, Intermediate, throat swelling, 10/13/17) [place] Seed (Verified Allergy, Intermediate, Unknown, 10/13/17) Quinolones (Verified Allergy, Mild, ITCHY RASH ON HEAD,CHEST,ARMS DURING IV INFUSION, 10/13/17) itchy rash on head, chest, arms during IV infusion. Beef (Verified Allergy, Unknown, UNKNOWN, 10/13/17) Diphenhydramine (Verified Allergy, Unknown, IV GIVEN-"FELT DOPED UP AFTER INJECTED", 10/13/17) Fish (Verified Allergy, Unknown, THROAT SWELLS, 10/13/17) Oxycodone (Verified Allergy, Unknown, airway edema, 10/13/17) Tomato (Verified Allergy, Unknown, ., 10/13/17) Aspirin (Verified Adverse Reaction, Mild, UPSET STOMACH, 10/13/17) Discharge Date / Findings Oct 18, 2017. Irregular Z line - biopsied, hiatal hernia. Provider Instructions Activity Restrictions - No exercising or heavy lifting for 24 hours. - Do not drink alcohol the day of the procedure. - Do not drive a car or operate machinery until the day after the procedure. - Do not make any important decisions or sign important papers in 24 hours after the procedure. Following Day: - Return to full activity which may include returning to work/school. Diet Start your diet with liquids and light foods (jello, soup, juice, toast). Then eat your usual diet if not nauseated. Treatment For Common After Affects For mild abdominal pain, bloating, or excessive gas: - Rest - Eat lightly - Lie on right side Follow-Up Information Follow-up with Ricki as scheduled Anesthesia Information What You Should Know You have had a procedure that required some medicine to reduce anxiety and discomfort. This treatment is called moderate sedation. After receiving the treatment, you may be sleepy, but you will be able to breathe on your own. The effects of the treatment may last for several hours. Follow these instructions along with Activity/Diet recommendations noted above: * Do NOT do anything where dizziness or clumsiness would be dangerous. * Rest quietly at home today, then you can be up and about tomorrow. * Have a responsible person stay with you the rest of today. * You may have had an I.V. today. If so, you may take the dressing off later today. Recommendations Call your doctor if: * Trouble breathing * Continuous vomiting for more than 24 hours * Temperature above 101 degrees * Severe abdominal pain or bloating * Pain not relieved by pain medicine ordered * There is increased drainage or redness from any incision * A large amount of rectal bleeding greater than 2-3 tablespoons. (If you had a polyp/s removed or have hemorrhoids, a small amount of blood - from the rectum is to be expected.) * You have any unanswered questions or concerns. IN THE EVENT OF A SERIOUS EMERGENCY, GO TO THE NEAREST EMERGENCY ROOM Your discharge instructions were prepared by provider Dayne Ortez. Patient Instructions Signature Page Oneida Cortes Patient (or Guardian) Signature/Date: I have read and understand the instructions given to me by my caregivers. Caregiver/RN/Doctor Signature/Date: The above-named patient and/or guardian has received patient instructions on this date. + Original Patient Signature Page (only) stays with chart. Please make copy for patient.
--- NOTE | 2017-10-18 12:11 | GI REPORT ---
Procedure Date: 10/18/2017 11:17 AM Procedure: Upper GI endoscopy Indications: Heartburn Medicines: See the Anesthesia note for documentation of the administered medications Complications: No immediate complications. Estimated Blood Loss: Estimated blood loss: none. Procedure: Pre-Anesthesia Assessment: - ASA Grade Assessment: III - A patient with severe systemic disease. After obtaining informed consent, the endoscope was passed under direct vision. Throughout the procedure, the patient's blood pressure, pulse, and oxygen saturations were monitored continuously. The On-site loaner was introduced through the mouth, and advanced to the second part of duodenum. The upper GI endoscopy was accomplished without difficulty. The patient tolerated the procedure well. Findings: The UES appeared patuolous. There was a mild eccentric ring and mild mucosal bridging at 20 cm. There were faint furrows and rings in the mid esophagus. There was no evidence of clinically significant esophageal obstruction lesion. The GE junction was 34 cm. There was marked stripes of erythema in the antrum. The pylorus was patulous. The stomach mucosa was otherwise normal. The duodenum was normal. A guidewire was placed and the scope was withdrawn. Dilation was performed at the gastroesophageal junction with a Savary dilator with no resistance at 15 mm, 16 mm, 17 mm and 18 mm. There was no trauma post dilation. Biopsies done throughout the esophagus. Impression: - Fibrotic changes in the esophagus suggestive of chronic Eoe, but no significant esophageal obstruction. Large bore dilator passed, biopsies done. - Antral gastritis. I suspect her dysphagia may be related to dysmotility, rather than obstruction. Recommendation: - Discharge patient to home. Follow up biopsy results. Dayne Burrell M.D. Dayne Burrell MD 10/18/2017 12:10:30 PM This report has been signed electronically. Note Initiated On: 10/18/2017 11:17 AM I attest to the content of the Intraoperative Record and orders documented therein, exceptions below
--- NOTE | 2017-10-18 12:14 | Discharge Instructions ---
Endoscopy Patient Instructions Date / Procedure(s) Performed Oct 18, 2017. EGD Allergy Information Coded Allergies: Chicken Allergy (Verified Allergy, Severe, THROAT SWELLS, 10/13/17) Ciprofloxacin (Verified Allergy, Severe, SWELLS UP THROAT AND CAN'T BREATHE, 10/13/17) Egg (Verified Allergy, Severe, THROAT SWELLS, 10/13/17) Poultry Meal (Verified Allergy, Severe, "[place]" -- Throat swelling, 10/13) Soy Protein (Verified Allergy, Severe, Unknown, 10/13/17) Yellow [place]et (Verified Allergy, Severe, SWELLS THROAT, 10/13/17) Sesame Seed (Verified Allergy, Intermediate, "Sesame" - Unknown rxn, 10/13) Sumatriptan (Verified Allergy, Intermediate, throat swelling, 10/13/17) [place] Seed (Verified Allergy, Intermediate, Unknown, 10/13/17) Quinolones (Verified Allergy, Mild, ITCHY RASH ON HEAD,CHEST,ARMS DURING IV INFUSION, 10/13/17) itchy rash on head, chest, arms during IV infusion. Beef (Verified Allergy, Unknown, UNKNOWN, 10/13/17) Diphenhydramine (Verified Allergy, Unknown, IV GIVEN-"FELT DOPED UP AFTER INJECTED", 10/13/17) Fish (Verified Allergy, Unknown, THROAT SWELLS, 10/13/17) Oxycodone (Verified Allergy, Unknown, airway edema, 10/13/17) Tomato (Verified Allergy, Unknown, ., 10/13/17) Aspirin (Verified Adverse Reaction, Mild, UPSET STOMACH, 10/13/17) Discharge Date / Findings Oct 18, 2017. Stigmata of chronic eosinophilic esophagitis. Dilator passed. Provider Instructions Activity Restrictions - No exercising or heavy lifting for 24 hours. - Do not drink alcohol the day of the procedure. - Do not drive a car or operate machinery until the day after the procedure. - Do not make any important decisions or sign important papers in 24 hours after the procedure. Following Day: - Return to full activity which may include returning to work/school. Diet Start your diet with liquids and light foods (jello, soup, juice, toast). Then eat your usual diet if not nauseated. Treatment For Common After Affects For mild abdominal pain, bloating, or excessive gas: - Rest - Eat lightly - Lie on right side Follow-Up Information Follow-up with Ricki as scheduled Anesthesia Information What You Should Know You have had a procedure that required some medicine to reduce anxiety and discomfort. This treatment is called moderate sedation. After receiving the treatment, you may be sleepy, but you will be able to breathe on your own. The effects of the treatment may last for several hours. Follow these instructions along with Activity/Diet recommendations noted above: * Do NOT do anything where dizziness or clumsiness would be dangerous. * Rest quietly at home today, then you can be up and about tomorrow. * Have a responsible person stay with you the rest of today. * You may have had an I.V. today. If so, you may take the dressing off later today. Recommendations Call your doctor if: * Trouble breathing * Continuous vomiting for more than 24 hours * Temperature above 101 degrees * Severe abdominal pain or bloating * Pain not relieved by pain medicine ordered * There is increased drainage or redness from any incision * A large amount of rectal bleeding greater than 2-3 tablespoons. (If you had a polyp/s removed or have hemorrhoids, a small amount of blood - from the rectum is to be expected.) * You have any unanswered questions or concerns. IN THE EVENT OF A SERIOUS EMERGENCY, GO TO THE NEAREST EMERGENCY ROOM Your discharge instructions were prepared by provider Dayne Ortez. Patient Instructions Signature Page Oneida Cortes Patient (or Guardian) Signature/Date: I have read and understand the instructions given to me by my caregivers. Caregiver/RN/Doctor Signature/Date: The above-named patient and/or guardian has received patient instructions on this date. + Original Patient Signature Page (only) stays with chart. Please make copy for patient.
[2017-10-18 12:30] VITALS: BP 126/92; PULSE 73; O2SAT 99
--- NOTE | 2017-10-18 12:45 | Anesthesiology Progress Note ---
Anesthesia Post Op Note Date & Time Oct 18, 2017 at 12:45 Vital Signs Pain Intensity: 0 Vital Signs Past 12 Hours Date Time Temp Pulse Resp B/P (MAP) Pulse Ox O2 Delivery O2 Flow Rate FiO2 10/18/17 12:30 73 20 126/92 (103) 99 Room Air 10/18/17 12:15 87 20 114/78 (90) 97 Room Air 10/18/17 11:58 95 20 124/86 (99) 98 Room Air 10/18/17 10:09 36.9 75 18 118/63 (81) 98 Room Air Notes Mental Status: alert / awake / arousable, participated in evaluation Pt Amnestic to Procedure: Yes Nausea / Vomiting: adequately controlled Pain: adequately controlled Airway Patency, RR, SpO2: stable & adequate BP & HR: stable & adequate Hydration State: stable & adequate Anesthetic Complications: no major complications apparent
== END | disposition home or self-care (01) ==
LOC: C.GI 09:42
PROVIDERS: ATTEND Internal Medicine Gastroenterology
DX: R12 Heartburn (principal); K29.70 Gastritis, unspecified, without bleeding; K20.0 Eosinophilic esophagitis; K21.9 Gastro-esophageal reflux disease without esophagitis; J45.909 Unspecified asthma, uncomplicated; F41.9 Anxiety disorder, unspecified; F32.9 Major depressive disorder, single episode, unspecified; Z98.890 Other specified postprocedural states; Z90.49 Acquired absence of other specified parts of digestive tract; Z90.89 Acquired absence of other organs; Z80.0 Family history of malignant neoplasm of digestive organs; Z91.012 Allergy to eggs; Z91.018 Allergy to other foods; Z79.899 Other long term (current) drug therapy

== ENCOUNTER 2018-01-03 15:43 | Emergency (ER) | payer OTHER ==
[~2018-01-03] VITALS: Ht 160 cm; Wt 50.4 kg
[~2018-01-03 15:43] MED LIST changes: -BENZOCAIN/TETRACA/BUTAM SPRAY 200 APPLN/20 GM SPRY ONE; -ETOMIDATE 2 MG/ML 20 ML VIAL IV ONE; -LIDOCAINE HCL 2% 2 ML VIAL (20MG/ML) ONE; -PROPOFOL IV EMULSION 10 MG/ML 20 ML VIAL IV ONE; +RANI150T85 PO; -SODIUM CHLORIDE 0.9% 500ML 500 ML IV ONE; -ZNTT/150 PO
[2018-01-03 16:00] VITALS: TEMP 36.8; Ht 160 cm; Wt 50.4 kg
[2018-01-03] MEDS ORDERED: KETOROLAC TROMETHAMINE 30 MG/ML VIAL IV STA (17:32)
[2018-01-03] MEDS ORDERED: ONDANSETRON INJ 2 MG/ML 2 ML VIAL IV STA (17:32)
--- NOTE | 2018-01-03 17:32 | EMERGENCY ROOM VISIT NOTE ---
History Report prepared by Shaheen: Javy Yang Under the Supervision of: Dr. Wilmer Mccormack M.D. First contact with patient: 17:26 Chief Complaint: ABDOMINAL PAIN Stated Complaint: LOWER ABDOMINAL PAIN, SEVER BACK PAIN Nursing Triage Summary: left lower abd pain radiating into back pt cannot see pcp until Wednesday n/v/d History of Present Illness The patient is a 47 year old female with a history of kidney infections and kidney stones who presents to the Emergency Room with complaints of waxing and waning lower abdominal pain that started 2 days ago. She says that the pain radiates to both sides of her back as well. The patient states that this pain is similar to her previous episodes of kidney stones and kidney infections. She states that the pain was initially only on her left side, but is now on both sides of her abdomen. The patient says that she does not see a urologist. She notes that she has been taking Tylenol for the pain. Source of History: patient Onset: 2 days ago Position: abdomen Symptom Intensity: has had pain like this in past Quality: other (similar pain to when had kidney stones and infections) Timing: waxes/wanes Associated Symptoms: + back pain (bilateral) Note: No other associated symptoms noted. Review of Systems See HPI for pertinent positives & negatives. A total of 10 systems reviewed and were otherwise negative. Past Medical & Surgical Medical Problems: (1) Anxiety disorder (2) Asthma (3) Bipolar disorder (4) Chronic post-traumatic stress disorder (5) Depression (6) Fibromyalgia (7) Gastroesophageal reflux disease (8) Gastroparesis (9) History of renal calculi (10) Hyperthyroidism (11) Irritable colon (12) Migraine (13) MS (multiple sclerosis) (14) Panic disorder Surgical Problems: (1) Status post appendectomy (2) Status post delivery (3) Status post hernia repair (4) Status post hysterectomy Family History Cancer FHx: seizures Heart disease Hypertension Lung disease Social History Smoking Status: Never Smoker Alcohol Use: none Drug Use: none Marital Status: single Housing Status: lives with family Occupation Status: unemployed, other Current/Historical Medications Scheduled Bupropion Hcl (Wellbutrin Sr), 300 MG PO DAILY Cholecalciferol (Vitamin D), 1 TAB PO QPM Dicyclomine Hcl (Bentyl), 1 CAP PO TID Loratadine (Claritin), 10 MG PO QAM Montelukast Sodium (Singulair), 10 MG PO HS Omeprazole (Prilosec), 20 MG PO BID Ranitidine (Zantac), 150 MG PO BID Topiramate (Topamax), 100 MG PO BID Scheduled PRN Acetamin/Butalbital/Caffeine (Fioricet), 1 TAB PO UD PRN for Migraine Epinephrine (Epipen), 0.3 MG IM UD PRN for ALLERGIC REACTION Fluticasone Propionate (Flovent Hfa), 2 PUFFS INH BID PRN for Shortness of Breath Ipratropium-Albuterol (Duoneb), 1 TREATMENT INH Q4H PRN for SOB/Wheezing Promethazine Hcl (Phenergan), 25 MG PO TID PRN for Nausea Allergies Coded Allergies: Chicken Allergy (Verified Allergy, Severe, THROAT SWELLS, 01/03/18) Ciprofloxacin (Verified Allergy, Severe, SWELLS UP THROAT AND CAN'T BREATHE, 01/03/18) Egg (Verified Allergy, Severe, THROAT SWELLS, 01/03/18) Poultry Meal (Verified Allergy, Severe, "[place]" -- Throat swelling, ) Soy Protein (Verified Allergy, Severe, Unknown, 01/03/18) Yellow Jacket (Verified Allergy, Severe, SWELLS THROAT, 01/03/18) Sesame Seed (Verified Allergy, Intermediate, "Sesame" - Unknown rxn, ) Sumatriptan (Verified Allergy, Intermediate, throat swelling, 01/03/18) [place] Seed (Verified Allergy, Intermediate, Unknown, 01/03/18) Quinolones (Verified Allergy, Mild, ITCHY RASH ON HEAD,CHEST,ARMS DURING IV INFUSION, 01/03/18) itchy rash on head, chest, arms during IV infusion. Beef (Verified Allergy, Unknown, UNKNOWN, 01/03/18) Diphenhydramine (Verified Allergy, Unknown, IV GIVEN-"FELT DOPED UP AFTER INJECTED", 01/03/18) Fish (Verified Allergy, Unknown, THROAT SWELLS, 01/03/18) Oxycodone (Verified Allergy, Unknown, airway edema, 01/03/18) Tomato (Verified Allergy, Unknown, ., 01/03/18) Aspirin (Verified Adverse Reaction, Mild, UPSET STOMACH, 01/03/18) Physical Exam Vital Signs Date Time Temp Pulse Resp B/P (MAP) Pulse Ox O2 Delivery O2 Flow Rate FiO2 01/03/18 19:23 69 18 122/74 100 Room Air 01/03/18 18:06 67 01/03/18 16:00 36.8 77 20 109/69 99 Room Air Physical Exam GENERAL: Patient is a healthy-appearing well-nourished 47 year old female. HEAD: Normocephalic atraumatic EYES: Ocular movements intact pupils equal and react to light OROPHARYNX mucous membranes are moist no exudates present no erythema or edema present NECK: Supple no nuchal rigidity CHEST: Good equal expansion LUNGS: Clear and equal to auscultation CARDIAC: Normal S1 and S2 ABDOMEN: Soft nontender no guarding BACK: No CVA tenderness EXTREMITIES: No pain upon palpation normal muscle strength in all groups no clubbing cyanosis or edema NEURO: Patient is following commands and answering questions appropriately. Alert and oriented x3 Cranial Nerves 2-12 grossly intact Medical Decision & Procedures ER Provider Diagnostic Interpretation: CT results as stated below per my review and radiologist interpretation: ABD/PELVIS WITHOUT FOR STONE HISTORY: 47 years-old Female Pt c/o left flank pain acute left-sided flank pain COMPARISON: CT abdomen and pelvis 01/22/2016 TECHNIQUE: Multiple axial CT images of the abdomen and pelvis were obtained without contrast. A dose lowering technique was used consistent with the principals of ALARA. FINDINGS: Mild subsegmental bibasilar atelectasis. There is no peritoneum or pneumatosis identified. Imaged inferior cardiac chambers are unremarkable. Prior cholecystectomy. Indeterminate low attenuating 6 mm ovoid lesion of the anterior right hepatic lobe is unchanged suggesting hepatic cyst. Liver is otherwise unremarkable. Spleen and adrenal glands are unremarkable. Ovoid circumscribed low attenuating lesion of the pancreatic tail is redemonstrated, 1.8 x 1.2 cm which has slightly increased in size from comparison, previously measuring approximately 1.3 x 1.0 cm on study dated 01/22/2016. Punctate bilateral nephrolithiasis with a 3 mm nonobstructing calculus of the superior pole left kidney. No ureteral calculi or obstructive uropathy identified. Ureters appear normal in caliber bilaterally. The urinary bladder is unremarkable. No adnexal mass lesions. Uterus appears surgically absent. Aorta is normal in course and caliber. No bulky adenopathy. No bowel obstruction or focal bowel wall thickening identified. There is moderate stool volume throughout the colon. The visualized appendix appears normal without evidence of acute appendicitis. Air-filled nondilated loops of small bowel within the lower abdomen and pelvis are likely physiologic. Soft tissues are unremarkable. Transitional lumbosacral anatomy is noted with pseudoarticulation of an elongated left L5 transverse process with the adjacent sacral ala. IMPRESSION: 1. Bilateral nephrolithiasis without ureteral calculi or obstructive uropathy. 2. No bowel obstruction or focal bowel wall thickening. 3. Suggested constipation. 4. Ovoid circumscribed cystic appearing lesion of the pancreatic tail redemonstrated measuring up to 1.8 cm, mildly increased in size from comparison study dated 01/22/2016. Further nonemergent evaluation with a follow-up pancreatic protocol MRI recommended. 5. Prior cholecystectomy. The above report was generated using voice recognition software. It may contain grammatical, syntax or spelling errors. Electronically signed by: Marty Jackson M.D. 01/03/2018 6:42 PM Dictated Date/Time: 01/03/2018 6:31 PM Laboratory Results 01/03/18 18:00 Red Blood Count 4.63, Mean Corpuscular Volume 86.4, Mean Corpuscular Hemoglobin 29.4, Mean Corpuscular Hemoglobin Concent 34.0, Mean Platelet Volume 10.5, Neutrophils (%) (Auto) 42.8, Lymphocytes (%) (Auto) 35.4, Monocytes (%) (Auto) 6.6, Eosinophils (%) (Auto) 12.4, Basophils (%) (Auto) 2.6, Neutrophils # (Auto ) 2.29, Lymphocytes # (Auto) 1.89, Monocytes # (Auto) 0.35, Eosinophils # (Auto ) 0.66, Basophils # (Auto) 0.14 01/03/18 18:00 Test 01/03/18 17:20 01/03/18 18:00 Urine Color YELLOW Urine Appearance CLEAR (CLEAR) Urine pH 7.0 (4.5-7.5) Urine Specific [place] 1.003 (1.000-1.030) Urine Protein NEG (NEG) Urine Glucose (UA) NEG (NEG) Urine Ketones NEG (NEG) Urine Occult Blood NEG (NEG) Urine Nitrite NEG (NEG) Urine Bilirubin NEG (NEG) Urine Urobilinogen NEG (NEG) Urine Leukocyte Esterase NEG (NEG) White Blood Count 5.34 K/uL (4.8-10.8) Red Blood Count 4.63 M/uL (4.2-5.4) Hemoglobin 13.6 g/dL (12.0-16.0) Hematocrit 40.0 % (37-47) Mean Corpuscular Volume 86.4 fL (80-100) Mean Corpuscular Hemoglobin 29.4 pg (25-34) Mean Corpuscular Hemoglobin Concent 34.0 g/dl (32-36) Platelet Count 221 K/uL (130-400) Mean Platelet Volume 10.5 fL (7.4-10.4) Neutrophils (%) (Auto) 42.8 % Lymphocytes (%) (Auto) 35.4 % Monocytes (%) (Auto) 6.6 % Eosinophils (%) (Auto) 12.4 % Basophils (%) (Auto) 2.6 % Neutrophils # (Auto) 2.29 K/uL (1.4-6.5) Lymphocytes # (Auto) 1.89 K/uL (1.2-3.4) Monocytes # (Auto) 0.35 K/uL (0.11-0.59) Eosinophils # (Auto) 0.66 K/uL (0-0.5) Basophils # (Auto) 0.14 K/uL (0-0.2) RDW Standard Deviation 43.1 fL (36.4-46.3) RDW Coefficient of Variation 13.6 % (11.5-14.5) Immature Granulocyte % (Auto) 0.2 % Immature Granulocyte # (Auto) 0.01 K/uL (0.00-0.02) Anion Gap 6.0 mmol/L (3-11) Est Creatinine Clear Calc Drug Dose 63.6 ml/min Estimated GFR () 91.3 Estimated GFR (Non- 78.8 BUN/Creatinine Ratio 12.2 (10-20) Calcium Level 9.2 mg/dl (8.5-10.1) Total Bilirubin 0.4 mg/dl (0.2-1) Direct Bilirubin 0.1 mg/dl (0-0.2) Aspartate Amino Transf (AST/SGOT) 13 U/L (15-37) Alanine Aminotransferase (ALT/SGPT) 19 U/L (12-78) Alkaline Phosphatase 108 U/L (45-117) Total Protein 8.1 gm/dl (6.4-8.2) Albumin 4.1 gm/dl (3.4-5.0) Lipase 285 U/L (73-393) Labs reviewed by ED physician. Medications Administered Medications (Trade) Dose Ordered Sig/Robert Route Start Time Stop Time Status Last Admin Dose Admin Ketorolac Tromethamine (Toradol Inj) 30 mg NOW STAT IV 01/03/18 17:32 01/03/18 17:34 DC 01/03/18 17:57 30 MG Ondansetron HCl (Zofran Inj) 4 mg NOW STAT IV 01/03/18 17:32 01/03/18 17:34 DC 01/03/18 17:57 4 MG Potassium Chloride (Katherine Ciel Elix) 40 meq NOW STAT PO 01/03/18 18:35 01/03/18 18:36 DC 01/03/18 18:48 40 MEQ Dicyclomine HCl (Bentyl Inj) 20 mg NOW STAT IM 01/03/18 18:54 01/03/18 18:56 DC 01/03/18 19:19 20 MG Acetaminophen 100 ml @ 400 mls/hr NOW STAT IV 01/03/18 18:54 01/03/18 19:08 DC 01/03/18 19:19 400 MLS/HR Magnesium Citrate (Citrate Of Magnesia Soln) 296 ml NOW STAT PO 01/03/18 18:54 01/03/18 18:56 DC 01/03/18 19:19 296 ML ED Course 1729: Past medical records reviewed. The patient was evaluated in room C6. A complete history and physical examination was performed. 1732: Ordered Zofran Inj 4 mg IV, Toradol Inj 30 mg IV. 1835: Ordered Katherine Ciel Elix 40 meq PO. 1854: Ordered Citrate of Magnesia Soln 296 ml PO, Bentyl Inj 20 mg IM. 1900: Upon reexamination the patient is resting comfortably. I discussed results and treatment plan with the patient. She verbalizes agreement and understanding. The patient is ready for discharge. Medical Decision Differential diagnosis: Etiologies such as renal colic, appendicitis, diverticulitis, mesenteric ischemia, aortic pathology, infections, inflammatory bowel disease, PUD, biliary pathology, UTI, as well as others were entertained. This is a 47-year-old female who presents emergency department complaining of bilateral abdominal pain. I will note that the patient has a soft benign examination. Patient is concerned she has a kidney stone however there is no blood in her urine and there is no evidence of a kidney stone on CAT scan. I do suspect that the patient is constipated. The patient is refusing narcotics in the emergency department. She was given Toradol as well as Bentyl I strongly recommended to the patient that she get a magnesium citrate clean out. As well as follow-up for the pancreatic cyst with gastroenterology. Patient was in agreement with the treatment plan. Medication Reconcilliation Current Medication List: was personally reviewed by me Blood Pressure Screening Patient's blood pressure: Normal blood pressure Impression Primary Impression: Abdominal pain Additional Impressions: Pancreatic cyst Constipation Bilateral nephrolithiasis Scribe Attestation The scribe's documentation has been prepared under my direction and personally reviewed by me in its entirety. I confirm that the note above accurately reflects all work, treatment, procedures, and medical decision making performed by me. Departure Information Dispostion Home / Self-Care Prescriptions Dicyclomine Hcl (BENTYL) 10 Mg Cap 1 CAP PO TID for 10 Days, #30 CAP Prov: Wilmer Mccormack MD 01/03/18 Referrals Miesha Robison D.O. (PCP) Dayne Mendez M.D. Forms Call Back Authorization, HOME CARE DOCUMENTATION FORM, IMPORTANT VISIT INFORMATION, School Instructions, Work Instructions Patient Instructions Abdominal Pain - [facility], ED Constipation, ED Stone Kidney Undescended No Sx, My [facility] Additional Instructions Take 1/2 bottle of Mag Citrate Repeat second half in six hours Clear liquid diet for next 48 hours NEED FOLLOW UP WITH DR MENDEZ FOR PANCREATIC CYST You have been examined and treated today on an emergency basis only. This is not a substitute for, or an effort to provide, complete comprehensive medical care. It is impossible to recognize and treat all injuries or illnesses in a single emergency department visit. It is therefore important that you follow up closely with Dr Robison. Call as soon as possible for an appointment. Thank you for your time and consideration. I look forward to speaking with you again soon. Please don't hesitate to call us if you have any questions. Problem Qualifiers Primary Impression: Abdominal pain Abdominal location: lower abdomen, unspecified Qualified Codes: R10.30 - Lower abdominal pain, unspecified Additional Impressions: Constipation Constipation type: unspecified constipation type Qualified Codes: K59.00 - Constipation, unspecified
[2018-01-03] MEDS ORDERED: BUPR150T7 PO (17:38)
[2018-01-03 18:11] LABS: BASO % 2.6 %; BASO ABS # 0.14 K/uL (0-0.2); EOS % 12.4 %; EOS ABS # 0.66 K/uL (0-0.5); HEMOGLOBIN 13.6 g/dL (12.0-16.0); IG# 0.01 K/uL (0.00-0.02); LYMPH % 35.4 %; LYMPH ABS # 1.89 K/uL (1.2-3.4); MEAN CELL VOLUME 86.4 fL (80-100); MEAN CORPUSCULAR HEMOGLOBIN 29.4 pg (25-34); MEAN PLATELET VOLUME 10.5 fL (7.4-10.4); MONO % 6.6 %; MONO ABS # 0.35 K/uL (0.11-0.59); NEUT % 42.8 %; NEUT ABS # 2.29 K/uL (1.4-6.5); PLATELET COUNT 221 K/uL (130-400); RED CELL DISTRIBUTION WIDTH CV 13.6 % (11.5-14.5); RED CELL DISTRIBUTION WIDTH SD 43.1 fL (36.4-46.3); WHITE BLOOD COUNT 5.34 K/uL (4.8-10.8)
[2018-01-03 18:25] LABS: ALBUMIN 4.1 gm/dl (3.4-5.0); CALCIUM 9.2 mg/dl (8.5-10.1); CREATININE 0.88 mg/dl (0.60-1.20); POTASSIUM 3.3 mmol/L (3.5-5.1)
[2018-01-03 18:27] LABS: TOTAL PROTEIN 8.1 gm/dl (6.4-8.2)
[2018-01-03] MEDS ORDERED: POTASSIUM CHLORIDE 20 MEQ/15 ML UDC PO STA (18:35)
--- NOTE | 2018-01-03 18:44 | DIAGNOSTIC IMAGING REPORT ---
ABD/PELVIS WITHOUT FOR STONE HISTORY: 47 years-old Female Pt c/o left flank pain acute left-sided flank pain COMPARISON: CT abdomen and pelvis 01/22/2016 TECHNIQUE: Multiple axial CT images of the abdomen and pelvis were obtained without contrast. A dose lowering technique was used consistent with the principals of YAYA. FINDINGS: Mild subsegmental bibasilar atelectasis. There is no peritoneum or pneumatosis identified. Imaged inferior cardiac chambers are unremarkable. Prior cholecystectomy. Indeterminate low attenuating 6 mm ovoid lesion of the anterior right hepatic lobe is unchanged suggesting hepatic cyst. Liver is otherwise unremarkable. Spleen and adrenal glands are unremarkable. Ovoid circumscribed low attenuating lesion of the pancreatic tail is redemonstrated, 1.8 x 1.2 cm which has slightly increased in size from comparison, previously measuring approximately 1.3 x 1.0 cm on study dated 01/22/2016. Punctate bilateral nephrolithiasis with a 3 mm nonobstructing calculus of the superior pole left kidney. No ureteral calculi or obstructive uropathy identified. Ureters appear normal in caliber bilaterally. The urinary bladder is unremarkable. No adnexal mass lesions. Uterus appears surgically absent. Aorta is normal in course and caliber. No bulky adenopathy. No bowel obstruction or focal bowel wall thickening identified. There is moderate stool volume throughout the colon. The visualized appendix appears normal without evidence of acute appendicitis. Air-filled nondilated loops of small bowel within the lower abdomen and pelvis are likely physiologic. Soft tissues are unremarkable. Transitional lumbosacral anatomy is noted with pseudoarticulation of an elongated left L5 transverse process with the adjacent sacral ala. IMPRESSION: 1. Bilateral nephrolithiasis without ureteral calculi or obstructive uropathy. 2. No bowel obstruction or focal bowel wall thickening. 3. Suggested constipation. 4. Ovoid circumscribed cystic appearing lesion of the pancreatic tail redemonstrated measuring up to 1.8 cm, mildly increased in size from comparison study dated 01/22/2016. Further nonemergent evaluation with a follow-up pancreatic protocol MRI recommended. 5. Prior cholecystectomy. The above report was generated using voice recognition software. It may contain grammatical, syntax or spelling errors. Electronically signed by: Marty Jackson M.D. 01/03/2018 6:42 PM Dictated Date/Time: 01/03/2018 6:31 PM
[2018-01-03] MEDS ORDERED: MAGNESIUM CITRATE 296 ML/BTL PO STA (18:54)
[2018-01-03] MEDS ORDERED: DICYCLOMINE HCL 10 MG/ML 2 ML AMP IM STA (18:54)
[2018-01-03] MEDS ORDERED: ACETAMINOPHEN IV 100 ML IV STA (18:54)
[2018-01-03] MEDS ORDERED: DICY10CA55 PO (19:02)
[2018-01-03 19:23] VITALS: BP 122/74; PULSE 69; O2SAT 100
== END 2018-01-03 19:57 | disposition home or self-care (01) ==
LOC: C.EDB 15:43 → C.EDC 19:57
DX: R10.30 Lower abdominal pain, unspecified (principal); K86.2 Cyst of pancreas; K59.00 Constipation, unspecified; N20.0 Calculus of kidney; F31.9 Bipolar disorder, unspecified; J45.909 Unspecified asthma, uncomplicated; M79.7 Fibromyalgia; K21.9 Gastro-esophageal reflux disease without esophagitis; K31.84 Gastroparesis; G35 Multiple sclerosis; Z91.018 Allergy to other foods; Z88.1 Allergy status to other antibiotic agents; Z91.012 Allergy to eggs; Z91.011 Allergy to milk products; Z91.030 Bee allergy status; Z88.8 Allergy status to other drugs, medicaments and biological substances; Z91.013 Allergy to seafood; Z88.6 Allergy status to analgesic agent; Z80.9 Family history of malignant neoplasm, unspecified; Z82.0 Family history of epilepsy and other diseases of the nervous system; Z82.49 Family history of ischemic heart disease and other diseases of the circulatory system

== ENCOUNTER → 2018-01-26 | Day surgery (SDC) | payer OTHER ==
[~2018-01-26] VITALS: Ht 157.5 cm; Wt 49.5 kg
[~2018-01-26] MED LIST changes: +BUPR150T7 PO; -BUPR200T2 PO; +FENTANYL CITRATE INJ 50 MCG/1 ML 2 ML VIAL ONE; +LACT10SO30 PO; +LIDOCAINE HCL 2% 2 ML VIAL (20MG/ML) ONE; +PROPOFOL IV EMULSION 10 MG/ML 20 ML VIAL IV ONE; +TOPI50TA24 PO; +TRIAMCINOLONE ACET 40 MG/ML VIAL XX STA
[2018-01-26 13:03] VITALS: Ht 157.5 cm; Wt 49.5 kg
--- NOTE | 2018-01-26 13:27 | Endo History and Physical ---
History & Physical Date of Service: Jan 26, 2018. Chief Complaint: EOSINOPHILIC ESOPHAGITIS Referring Physician: DR CATE POON History of Present Illness h/o Eoe Past Medical History Other Psy. Disorders, Asthma, Gastrointestinal Disorder, Anxiety, Reflux, Thyroid Disease, Other, Depression Past Surgical History Hx Cardiac Surgery: No Hx Internal Defibrillator: No Hx Pacemaker: No Hx Abdominal Surgery: Yes (JAG BSO, , HERNIA REPAIR, APPY, LAP REMI, D&C) Hx of Implantable Prosthesis: No Hx Post-Op Nausea and Vomiting: No Hx Cancer Surgery: No Hx Thoracic Surgery: No Hx Orthopedic: No Hx Urinary Tract Surgery: Yes (LITHOTRIPSY) Family History None Social History Smoking Status: Never Smoker Hx Substance Use: No Hx Alcohol Use: No Allergies Coded Allergies: Chicken Allergy (Verified Allergy, Severe, THROAT SWELLS, 01/26/18) Ciprofloxacin (Verified Allergy, Severe, SWELLS UP THROAT AND CAN'T BREATHE, 01/26/18) Egg (Verified Allergy, Severe, THROAT SWELLS, 01/26/18) Poultry Meal (Verified Allergy, Severe, "[place]" -- Throat swelling, ) Soy Protein (Verified Allergy, Severe, Unknown, 01/26/18) Yellow Jacket (Verified Allergy, Severe, SWELLS THROAT, 01/26/18) Sesame Seed (Verified Allergy, Intermediate, "Sesame" - Unknown rxn, ) Sumatriptan (Verified Allergy, Intermediate, throat swelling, 01/26/18) [place] Seed (Verified Allergy, Intermediate, Unknown, 01/26/18) Quinolones (Verified Allergy, Mild, ITCHY RASH ON HEAD,CHEST,ARMS DURING IV INFUSION, 01/26/18) itchy rash on head, chest, arms during IV infusion. Beef (Verified Allergy, Unknown, UNKNOWN, 01/26/18) Diphenhydramine (Verified Allergy, Unknown, IV GIVEN-"FELT DOPED UP AFTER INJECTED", 01/26/18) Fish (Verified Allergy, Unknown, THROAT SWELLS, 01/26/18) Oxycodone (Verified Allergy, Unknown, airway edema, 01/26/18) Tomato (Verified Allergy, Unknown, ., 01/26/18) Aspirin (Verified Adverse Reaction, Mild, UPSET STOMACH, 01/26/18) Current Medications Reported Home Medications Medications Dose Route/Sig Max Daily Dose Days Date Category Lactulose (Lactulose (Encephalopathy)) 10 Gm/15 Ml Ronna 30 Ml PO TID 01/20/18 Reported Topamax (Topiramate) 50 Mg Tab 50 Mg PO QPM 01/20/18 Reported Wellbutrin Sr (Bupropion Hcl) 150 Mg Tab 1 Tab PO BID 01/03/18 Reported Fioricet (Acetaminophen/Butalbital/Caffeine) 1 Ea Tab 1 Tab PO UD PRN 10/13/17 Reported Topamax (Topiramate) 100 Mg Tab 100 Mg PO BID 10/13/17 Reported Duoneb (Ipratropium-Albuterol) 3 Ml Nebu 1 Treatment INH Q4H PRN 10/13/17 Reported Singulair (Montelukast Sodium) 10 Mg Tab 10 Mg PO HS 10/13/17 Reported Zantac (Ranitidine HCl) 150 Mg Tab 150 Mg PO BID 10/13/17 Reported Vitamin D (Cholecalciferol) 5,000 Unit Tab 1 Tab PO QPM 12/23/16 Reported Phenergan (Promethazine HCl) 25 Mg Tab 25 Mg PO TID PRN 12/23/16 Reported Flovent Hfa (Fluticasone Propionate) 120 Puffs/5280 Mcg Aero 2 Puffs INH BID PRN 12/23/16 Reported Claritin (Loratadine) 10 Mg Tab 10 Mg PO QAM 12/23/16 Reported Prilosec (Omeprazole) 20 Mg Capcr 20 Mg PO BID 12/23/16 Reported Epipen (Epinephrine) 0.3 Mg/0.3 Ml Inj 0.3 Mg IM UD PRN 11/03/12 Reported Vital Signs Weight (Kilograms): 49.55 Height (Feet): 5 Height (Inches): 2 Date Time Temp Pulse Resp B/P (MAP) Pulse Ox O2 Delivery O2 Flow Rate FiO2 01/26/18 13:05 37.1 63 18 114/77 (89) 97 Room Air Physical Exam General Appearance: WD/WN Respiratory/Chest: Auscultation: breath sounds normal Cardiovascular: Heart Auscultation: RRR Assessment and Plan EGD for Eoe
--- NOTE | 2018-01-26 14:20 | Discharge Instructions ---
Endoscopy Patient Instructions Date / Procedure(s) Performed Jan 26, 2018. EGD Allergy Information Coded Allergies: Chicken Allergy (Verified Allergy, Severe, THROAT SWELLS, 01/26/18) Ciprofloxacin (Verified Allergy, Severe, SWELLS UP THROAT AND CAN'T BREATHE, 01/26/18) Egg (Verified Allergy, Severe, THROAT SWELLS, 01/26/18) Poultry Meal (Verified Allergy, Severe, "[place]" -- Throat swelling, ) Soy Protein (Verified Allergy, Severe, Unknown, 01/26/18) Yellow Jacket (Verified Allergy, Severe, SWELLS THROAT, 01/26/18) Sesame Seed (Verified Allergy, Intermediate, "Sesame" - Unknown rxn, ) Sumatriptan (Verified Allergy, Intermediate, throat swelling, 01/26/18) [place] Seed (Verified Allergy, Intermediate, Unknown, 01/26/18) Quinolones (Verified Allergy, Mild, ITCHY RASH ON HEAD,CHEST,ARMS DURING IV INFUSION, 01/26/18) itchy rash on head, chest, arms during IV infusion. Beef (Verified Allergy, Unknown, UNKNOWN, 01/26/18) Diphenhydramine (Verified Allergy, Unknown, IV GIVEN-"FELT DOPED UP AFTER INJECTED", 01/26/18) Fish (Verified Allergy, Unknown, THROAT SWELLS, 01/26/18) Oxycodone (Verified Allergy, Unknown, airway edema, 01/26/18) Tomato (Verified Allergy, Unknown, ., 01/26/18) Aspirin (Verified Adverse Reaction, Mild, UPSET STOMACH, 01/26/18) Discharge Date / Findings Jan 26, 2018. Eosinophilic esophagitis; dilation performed; steroid injection Provider Instructions Activity Restrictions - No exercising or heavy lifting for 24 hours. - Do not drink alcohol the day of the procedure. - Do not drive a car or operate machinery until the day after the procedure. - Do not make any important decisions or sign important papers in 24 hours after the procedure. Following Day: - Return to full activity which may include returning to work/school. Diet Start your diet with liquids and light foods (jello, soup, juice, toast). Then eat your usual diet if not nauseated. Treatment For Common After Affects For mild abdominal pain, bloating, or excessive gas: - Rest - Eat lightly - Lie on right side Follow-Up Information Follow-up with DR CATE POON as scheduled Anesthesia Information What You Should Know You have had a procedure that required some medicine to reduce anxiety and discomfort. This treatment is called moderate sedation. After receiving the treatment, you may be sleepy, but you will be able to breathe on your own. The effects of the treatment may last for several hours. Follow these instructions along with Activity/Diet recommendations noted above: * Do NOT do anything where dizziness or clumsiness would be dangerous. * Rest quietly at home today, then you can be up and about tomorrow. * Have a responsible person stay with you the rest of today. * You may have had an I.V. today. If so, you may take the dressing off later today. Recommendations Call your doctor if: * Trouble breathing * Continuous vomiting for more than 24 hours * Temperature above 101 degrees * Severe abdominal pain or bloating * Pain not relieved by pain medicine ordered * There is increased drainage or redness from any incision * A large amount of rectal bleeding greater than 2-3 tablespoons. (If you had a polyp/s removed or have hemorrhoids, a small amount of blood - from the rectum is to be expected.) * You have any unanswered questions or concerns. IN THE EVENT OF A SERIOUS EMERGENCY, GO TO THE NEAREST EMERGENCY ROOM Your discharge instructions were prepared by provider Dayne Ortez. Patient Instructions Signature Page Oneida Cortes Patient (or Guardian) Signature/Date: I have read and understand the instructions given to me by my caregivers. Caregiver/RN/Doctor Signature/Date: The above-named patient and/or guardian has received patient instructions on this date. + Original Patient Signature Page (only) stays with chart. Please make copy for patient.
[2018-01-26 14:47] VITALS: BP 113/67; PULSE 61; O2SAT 96
--- NOTE | 2018-01-26 14:56 | GI REPORT ---
Procedure Date: 01/26/2018 1:32 PM Procedure: Upper GI endoscopy Indications: Dysphagia Medicines: See the Anesthesia note for documentation of the administered medications Complications: No immediate complications. Estimated Blood Loss: Estimated blood loss: none. Procedure: Pre-Anesthesia Assessment: - ASA Grade Assessment: III - A patient with severe systemic disease. After obtaining informed consent, the endoscope was passed under direct vision. Throughout the procedure, the patient's blood pressure, pulse, and oxygen saturations were monitored continuously. The Scope was introduced through the mouth, and advanced to the second part of duodenum. The upper GI endoscopy was accomplished without difficulty. The patient tolerated the procedure well. Findings: Mucosal changes including longitudinal furrows were found in the middle third of the esophagus and in the lower third of the esophagus. Biopsies were taken with a cold forceps for histology. A guidewire was placed and the scope was withdrawn. Dilation was performed with a Savary dilator with no resistance at 18 mm. Mid esophagus was successfully injected with 4 mL of triamcinolone (10 mg/mL) for drug delivery to mid esophageal narrowing. The entire examined stomach was normal. Biopsies were taken with a cold forceps for histology. The examined duodenum was normal. Biopsies were taken with a cold forceps for histology. Impression: - Esophageal mucosal changes consistent with eosinophilic esophagitis. Biopsied. Dilated. Injected. - Normal stomach. Biopsied. - Normal examined duodenum. Biopsied. Recommendation: - Discharge patient to home. Dayne Burrell M.D. Dayne Burrell MD 01/26/2018 2:55:56 PM This report has been signed electronically. Note Initiated On: 01/26/2018 1:32 PM I attest to the content of the Intraoperative Record and orders documented therein, exceptions below
--- NOTE | 2018-01-26 15:10 | Anesthesiology Progress Note ---
Anesthesia Post Op Note Date & Time Jan 26, 2018 at 15:10 Vital Signs Pain Intensity: 0 Vital Signs Past 12 Hours Date Time Temp Pulse Resp B/P (MAP) Pulse Ox O2 Delivery O2 Flow Rate FiO2 01/26/18 14:47 61 18 113/67 (82) 96 Room Air 01/26/18 14:32 73 18 101/65 (77) 97 Room Air 01/26/18 14:28 66 18 107/59 (75) 97 Room Air 01/26/18 14:17 36.7 76 16 95/47 (63) 95 Room Air 01/26/18 13:05 37.1 63 18 114/77 (89) 97 Room Air Notes Mental Status: alert / awake / arousable, participated in evaluation Pt Amnestic to Procedure: Yes Nausea / Vomiting: adequately controlled Pain: adequately controlled Airway Patency, RR, SpO2: stable & adequate BP & HR: stable & adequate Hydration State: stable & adequate Anesthetic Complications: no major complications apparent
== END | disposition home or self-care (01) ==
LOC: C.GI 12:45
PROVIDERS: ATTEND Internal Medicine Gastroenterology
DX: K20.0 Eosinophilic esophagitis (principal); R13.10 Dysphagia, unspecified; J45.909 Unspecified asthma, uncomplicated; F41.9 Anxiety disorder, unspecified; E03.9 Hypothyroidism, unspecified; F31.9 Bipolar disorder, unspecified; F32.9 Major depressive disorder, single episode, unspecified; G47.33 Obstructive sleep apnea (adult) (pediatric); K21.9 Gastro-esophageal reflux disease without esophagitis; Z90.710 Acquired absence of both cervix and uterus; Z90.89 Acquired absence of other organs; Z90.49 Acquired absence of other specified parts of digestive tract; Z88.1 Allergy status to other antibiotic agents; Z88.5 Allergy status to narcotic agent; Z88.6 Allergy status to analgesic agent; Z87.442 Personal history of urinary calculi

== ENCOUNTER → 2018-02-22 | Outpatient (CLI) | payer OTHER ==
[~2018-02-22] MED LIST changes: -FENTANYL CITRATE INJ 50 MCG/1 ML 2 ML VIAL ONE; +GADAVIST IV PRN; -LIDOCAINE HCL 2% 2 ML VIAL (20MG/ML) ONE; -PROPOFOL IV EMULSION 10 MG/ML 20 ML VIAL IV ONE; -TRIAMCINOLONE ACET 40 MG/ML VIAL XX STA
--- NOTE | 2018-02-22 12:20 | DIAGNOSTIC IMAGING REPORT ---
ABDOMEN COMBO CLINICAL HISTORY: 47 years-old Female presenting with PANCREAS CYST, abdominal pain. TECHNIQUE: Multisequence, multiplanar MR imaging of the abdomen was performed before and after the administration of intravenous contrast. IV contrast: 5 mL of Gadavist. COMPARISON: CT from 01/03/2018 and 01/22/2016. FINDINGS: Localizer images: Unremarkable. Lung bases: Lungs and pleural spaces clear. Normal heart size. No pericardial or pleural effusion. Liver: Normal morphology. Small T2 hyperintense nonenhancing lesion compatible with hepatic cyst or hamartoma. Normal hepatic fat fraction. Patent hepatic vasculature. Biliary: No intrahepatic or extrahepatic biliary ductal dilatation. Gallbladder surgically absent. Pancreas: 2 cm T1 hypointense, T2 hyperintense simple appearing nonenhancing cyst at the pancreatic tail has minimally grown since 2016, when it measured 13 mm. The pancreatic duct is nondilated, a clear communication with the pancreatic duct is not visualized. No suspicious nodular enhancement. Spleen: Normal. Adrenal glands: Normal. Kidneys and ureters: Normal. No hydronephrosis. Bowel: Normal. No bowel obstruction. Peritoneal cavity: No free fluid or intraperitoneal gas. Lymph nodes: No enlarged lymph nodes in the abdomen. Vasculature: Aorta and IVC patent and normal in caliber. Abdominal wall: Normal. Musculoskeletal: Normal. IMPRESSION: 1. Slight interval growth since 2016 of the simple appearing 2 cm pancreatic tail cyst. 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 No worrisome features. Continued surveillance recommended. Electronically signed by: Parmjit Gonzalez M.D. 02/22/2018 12:18 PM Dictated Date/Time: 02/22/2018 12:08 PM
== END | disposition home or self-care (01) ==
LOC: C.MRI 10:53
PROVIDERS: ATTEND Internal Medicine Gastroenterology
DX: K86.2 Cyst of pancreas (principal)

== ENCOUNTER 2021-04-30 19:07 | Inpatient (IN) ==
[2021-04-30] MEDS ORDERED: METOCLOPRAMIDE HCL INJ 5 MG/ML 2 ML VIAL IV STA (21:20)
[2021-04-30] MEDS ORDERED: SODIUM CHLORIDE 0.9% 1000ML 1,000 ML IV SCH (21:30)
[2021-04-30] MEDS ORDERED: KETOROLAC TROMETHAMINE 15 MG/ML VIAL IV STA (22:33)
[2021-04-30] MEDS ORDERED: ONDANSETRON INJ 2 MG/ML 2 ML VIAL IV STA (22:33)
[2021-04-30] MEDS ORDERED: dexAMETHasone 6 MG in SYRINGE 0 ML IV ONE (22:56)
[2021-04-30] MEDS ORDERED: DEXAMETHASONE SOD INJ 4 MG/ML VIAL ONE (23:08)
--- NOTE | 2021-04-30 23:17 | Anesthesiology Consultation ---
Date of Service April 30, 2021 Assessment & Plan (1) Post-dural puncture headache: Additional Notes Patient reports that she had a spinal tap under fluoro guidance 04/29/21. She reports that she developed a mild headache before being discharged from the procedure. She was instructed to go home and take tylenol and ibuprofen and to report to the ED if the headache worsens. The patient reports that the headache was worse this morning. The headache is described as pressure and she points to the frontal area when asked to localize the headache. She states this headache is different and much worse than a normal migraine. It is accompanied with ringing in her ears but no other neurological symptoms. She reports nausea throughout the day today and multiple episodes of vomiting. She did try taking ibuprofen and tylenol for the headache without relief. She states headache is worse sitting up and mildly improved with lying down. Review of the patient's most recent neurology notes demonstrates a history of migraines, MS (reason for spinal tap), and what appears to be new concerns for possible lumbosacral nerve problems. Per the neurology note, the patient was given a steroid dose pack to see if it would improve her migraines and her lumbar symptoms (mostly bilateral tingling and numbness in the lumbosacral distribution). Per the patient today, her lumbosacral symptoms remain unimproved. According to the neurology note, a lumbar MRI may be indicated if the patient's symptoms aren't improving. I suspect that the patient likely has a post dural puncture headache (PDPH), although there also may be some component of her chronic migraines as well. I spoke with the patient and her mother extensively about the cause and normal course for post dural puncture headaches. Most postdural puncture headaches resolve without intervention in the first 7 days. Conservative management includes hydration (IV or oral), caffeine, and pain medications. Pain medications, including Fioricet and triptans should provide some symptomatic improvement. In addition, there is some evidence that Theophylline (250 mg TID), gabapentin (300 mg TID), or pregabalin (100 mg TID) may be helpful. In addition to pain medications, there is some evidence that administering IV cosyntropin may help. Cosyntropin (1 mg in 1L of crystalloid) can be administered over an hour and may provide some alf relief by increasing CSF production. The effect of cosyntropin is usually seen in the first 6 to 12 hours after administration. Definitive treatment for PDPH is placement of blood patch. I did talk to the patient about blood patching, but I am not comfortable placing a blood patch tonight after reviewing her most recent neurology note. I suspect that the patient may benefit from the blood patch, but I would recommend first getting clearance from her neurologist prior to attempting placement. In the meantime, I advised the patient and the ED staff to manage the headache conservatively. If neurology is comfortable providing written clearance for blood patch placement, the patient can return to the ED tomorrow during the day for placement. History Height/Weight Height: 5 ft 2 in Weight: 52.2 kg Allergies Allergy/AdvReac Type Severity Reaction Status Date / Time chicken derived Allergy Severe THROAT Verified 04/30/21 22:36 SWELLS ciprofloxacin Allergy Severe SWELLS UP Verified 04/30/21 22:36 THROAT AND CAN'T BREATHE egg Allergy Severe THROAT Verified 04/30/21 22:36 SWELLS hornet venom Allergy Severe SWELLS Verified 04/30/21 22:36 THROAT oxycodone Allergy Severe airway Verified 04/30/21 22:36 edema Poultry Allergy Severe "[place]" Verified 04/30/21 22:36 -- Throat swelling soy Allergy Severe ALLERGY Verified 04/30/21 22:36 TEST + Beef Containing Products Allergy Intermediate GI SYMPTOMS Verified 04/30/21 22:36 Fish Containing Products Allergy Intermediate Throat Verified 04/30/21 22:36 swells sesame seed Allergy Intermediate "Sesame" - Verified 04/30/21 22:36 + ALLERGY TEST sumatriptan Allergy Intermediate throat Verified 04/30/21 22:36 swelling sunflower seed Allergy Intermediate + ALLERGY Verified 04/30/21 22:36 TEST tomato Allergy Intermediate + ALLERGY Verified 04/30/21 22:36 TEST Quinolones Allergy Mild ITCHY RASH Verified 04/30/21 22:36 ON HEAD,CHEST,ARMS DURING IV INFUSION acetaminophen [From Percocet] Allergy Unknown Verified 04/30/21 22:36 iodine Allergy Unknown Verified 04/30/21 22:36 salicylates Allergy Unknown Verified 04/30/21 22:36 wheat Allergy Unknown Verified 04/30/21 22:36 diphenhydramine AdvReac Intermediate IV Verified 04/30/21 22:36 GIVEN-"FELT DOPED UP AFTER INJECTED" aspirin AdvReac Mild UPSET Verified 04/30/21 22:36 STOMACH morphine AdvReac Mild Drowsy Verified 04/30/21 22:36 orange juice AdvReac Mild Gastrointestinal Verified 04/30/21 22:36 Upset Medications Home Medications Medication Instructions Recorded Confirmed Last Taken Dulera 2 puff INHALATION Q12H 02/27/19 04/30/21 10/06/20 cholecalciferol (vitamin D3) 5,000 unit PO QAM 02/27/19 04/30/21 10/06/20 [Vitamin D3] epinephrine [EpiPen] 0.3 mg IM Q3H PRN 02/27/19 04/30/21 Unknown ipratropium-albuterol 3 ml INHALATION Q8H PRN 02/27/19 04/30/21 02/04/19 lactulose 30 ml PO TID PRN 02/27/19 04/30/21 11/24/19 promethazine 25 mg PO Q6H PRN 02/27/19 04/30/21 10/06/20 bupropion HCl [Wellbutrin XL] 300 mg PO QAM 10/06/20 04/30/21 10/06/20 topiramate 200 mg tablet 200 mg PO BID 30 Days #60 tab 04/04/21 04/30/21 Unknown fluticasone propionate 2 puff INHALATION BID PRN 04/29/21 04/30/21 Unknown loratadine [Claritin] 10 mg PO DAILY 04/29/21 04/30/21 Unknown montelukast [Singulair] 10 mg PO PM 04/29/21 04/30/21 Unknown albuterol sulfate 2 puff INHALATION QID PRN 04/30/21 04/30/21 Unknown lurasidone [Latuda] 40 mg PO QPM 04/30/21 04/30/21 Unknown naratriptan 2.5 mg PO DAILY PRN 04/30/21 04/30/21 Unknown vilazodone [Viibryd] 10 mg PO DAILY 04/30/21 04/30/21 Unknown Past Medical History Medical History (Updated 04/30/21 @ 23:50 by Zoila Clark MD) Anemia Anxiety Asthma USES PRN INH 1 X Q2W ON AVERAGE Attention deficit disorder (ADD) Bipolar disorder Chronic obstructive pulmonary disease Cyst of pancreas Depression Dysphagia Fibromyalgia Gastroparesis IBS (irritable bowel syndrome) Kidney stones Migraine Multiple allergies Multiple sclerosis Post traumatic stress disorder Sleep apnea CPAP (VERBALIZED HAS NOT BEEN USING) Thyroid disease Past Surgical History Surgical History H/O exploratory laparotomy History of appendectomy History of section X 2 History of cholecystectomy History of colonoscopy History of cystoscopy History of dilatation and curettage X 3 History of esophagogastroduodenoscopy (EGD) 03/07/19 [facility] History of herniorrhaphy History of hysterectomy History of lithotripsy History of tooth extraction Social History Smoking Status: Never smoker Hx Alcohol Use: No Hx Substance Use: No substance use type: does not use Physical Exam Vital Signs Last Vital Signs Temp 36.6 C 04/30/21 19:09 Pulse 56 L 04/30/21 23:20 Resp 16 04/30/21 23:20 BP 106/71 04/30/21 23:20 Pulse Ox 97 04/30/21 23:20 Constitutional + thin sleepy, but easily arrousable Eyes PERRL vision grossly normal, EOMI. ENMT Cranial nerves grossly intact. Respiratory normal respiratory effort Lab Results Anesthesia Preop Results Results Anesthesia Widget: WBC 5.82 K/uL (4.8-10.8) 04/29/21 Hgb 12.8 g/dL (12.0-16.0) 04/29/21 Hct 39.0 % (37-47) 04/29/21 Plt 249 K/uL (130-400) 04/29/21 Na 143 mmol/L (136-145) 04/29/21 K 3.4 mmol/L (3.5-5.1) L 04/29/21 Cl 112 mmol/L (98-107) H 04/29/21 CO2 23 mmol/L (21-32) 04/29/21 BUN 14 mg/dl (7-18) 04/29/21 Creat 1.19 mg/dl (0.6-1.2) 04/29/21 Glucose Level 91 mg/dl (70-99) 04/29/21
[2021-05-01 00:13] LABS: Basophils # (auto) 0.15 K/uL (0-0.2); Basophils % (auto) 2.7 %; Eosinophils # (auto) 0.61 K/uL (0-0.5); Eosinophils % (auto) 10.8 %; Hemoglobin 12.6 g/dL (12.0-16.0); Immature Granulocytes # (auto) 0.01 K/uL (0.00-0.02); Immature Granulocytes % (auto) 0.2 %; Lymphocytes % (auto) 46.2 %; Mean Corpuscular Hemoglobin 30.3 pg (25-34); Mean Corpuscular Hgb Conc 32.3 g/dL (32-36); Mean Corpuscular Volume 93.8 fL (80-100); Mean Platelet Volume 11.8 fL (7.4-10.4); Monocytes # (auto) 0.33 K/uL (0.11-0.59); Monocytes % (auto) 5.9 %; Neutrophils # (auto) 1.93 K/uL (1.4-6.5); Neutrophils % (auto) 34.2 %; Platelet Count 314 K/uL (130-400); RDW Coefficient of Variation 13.8 % (11.5-14.5); RDW Standard Deviation 47.3 fL (36.4-46.3); Red Blood Count 4.16 M/uL (4.2-5.4); White Blood Count 5.63 K/uL (4.8-10.8)
[2021-05-01 00:19] LABS: BUN Creatinine Ratio 13.5 (10-20); Calcium 9.2 mg/dl (8.5-10.1); Creatinine Clr Calc Pharmacy 48.4 ml/min; Est GFR (African American) 67.8 ml/min; Est GFR (Non-African American) 58.5 ml/min; Potassium 3.6 mmol/L (3.5-5.1)
[2021-05-01 00:24] LABS: Pregnancy Test, Serum Negative (Negative)
[2021-05-01] MEDS ORDERED: MAGNESIUM SULFATE / D5W 1 GM/100 ML BAG IV STA (00:31)
[2021-05-01] MEDS: SODIUM CHLORIDE 0.9% 1000ML 1,000 ML IV SCH ×3 (00:40→22:38)
--- NOTE | 2021-05-01 01:28 | Emergency Department Note ---
Impression & Plan Post-dural puncture headache, Fatigue, Nausea & vomiting ED Provider Note Provider: Kenny Colvin MD DATE OF SERVICE: 04/30/2021 CHIEF COMPLAINT: Headache, nausea vomiting HISTORY OF PRESENT ILLNESS: Patient is a 51-year-old female with a past medical history including chronic migraines, gastroparesis, and fibromyalgia presenting here with her mother today reporting significant headache and nausea vomiting developing overnight last night persisting through today. Had a fluoroscopy assisted lumbar puncture done yesterday for work-up of MS with the [facility] neurology group. No trauma or syncope reported. Patient states she is been up to keep down significant liquids. Tried to take some Tylenol Motrin but been throwing this up. Denies any abdominal pain. Reports a lot of pressure around her head but this feels a bit different than her normal headache. Denies any new numbness or weakness in the extremities. Denies any bladder or bowel dysfunction. Patient reports occasionally she gets some paresthesias or tingling in her legs and has followed with neurology before for this and is undergoing again work-up. Does report feeling a bit chilled here at the hospital but denies any fevers. Reports some light sensitivity. Patient does report the headache is positional and better if she lies down. Patient states she did not get much sleep last night due to her headache REVIEW OF SYSTEMS: A total of 10 review of systems was obtained and negative except as stated above in the HPI. PAST MEDICAL HISTORY: As noted above MEDICATIONS: Reviewed home medication list SOCIAL HISTORY: Non-smoker, lives at home in a trailer next door to her mother PHYSICAL EXAM: GENERAL: alert and oriented in no acute distress on stretcher appears fatigued in a darkened room Head: normocephalic and atraumatic EYES: No injection, discharge or icterus. PERRL NECK: Trachea midline. LUNGS: Airway patent. No retractions. Breath sounds clear HEART: Regular rate and rhythm. No chest wall tenderness ABDOMEN: Soft and non-tender, without guarding or rebound. SKIN: Acyanotic, warm, dry, without rashes EXTREMITIES: Without swelling, tenderness or deformity NEUROLOGICAL: No focal deficits. No aphasia. No facial droop or slurred speech. Normal strength and tone in the extremities. Sensation to gross touch normal. Patient's laboratory studies reviewed. Differential includes Migraine headache, meningitis, sinusitis, CO exposure, ICH, SAH, infection, tumor, headache, sinus thrombosis, arterial dissection, as well as other pathologies. IMPRESSION/MEDICAL DECISION MAKING: Patient presents with headache after an LP consistent with a post dural headache. Low suspicion at this time for acute CVA or stroke. Do not believe we need CT imaging of the head at this time. Doubt acute subarachnoid hemorrhage. CSF studies from yesterday not indicative of meningitis and I doubt this. She denies any fever. Benign abdomen on exam without reported pain and no tenderness here. Negative . Doubt acute appendicitis, diverticulitis, cholecystitis, or perforation given her benign exam here. No leukocytosis here today on labs. No acute focal neurological deficits a ppreciated although she reports some chronic paresthesias in the legs. Treated here with a little bit of Reglan initially and some IV fluids. Believe her nausea is related to her headache symptoms. Discussed with anesthesia who graciously evaluated the patient here in the ER. Given her paresthesias in the past in the lower extremities, although I doubt acute cauda equina at the present time, anesthesia raised concerns about performing a blood patch at this time and wished to try conservative management. Discussed with neurology and given some IV steroids here as well as Toradol, Zofran, and magnesium. Patient is significantly drowsy on reevaluation after the very small amount of Reglan. States her headache and nausea are improved is not actively vomiting and sleeping and snoring upon my entering the room. Somewhat difficult to arouse and falls asleep after brief conversation. Again discussed conservative management and possibly following up in the outpatient setting with neurology however given her significant fatigue and lethargy at this point do not feel that she is safe for discharge home in the care of her elderly mother. Mother was in agreement at bedside. Believe the fatigue today is result of her lack of sleep as well as a little bit of the Reglan. After several hours was still quite fatigued and thus we will asked the hospitalist to observe her overnight for improvement of this and continue to work for treatment of her headache. Anesthesia states if neurology evaluated and felt comfortable with a blood patch and documented as such this could be considered in the morning. DIAGNOSIS: Post dural headache, fatigue, nausea and vomiting DISPOSITION: Hospitalist will evaluate Patient was agreeable with this plan. Past Med/Surg History Medical History (Updated 05/01/21 @ 01:37 by Kenny Colvin M.D.) Anemia Anxiety Asthma USES PRN INH 1 X Q2W ON AVERAGE Attention deficit disorder (ADD) Bipolar disorder Chronic obstructive pulmonary disease Cyst of pancreas Depression Dysphagia Fibromyalgia Gastroparesis IBS (irritable bowel syndrome) Kidney stones Migraine Multiple allergies Multiple sclerosis Post traumatic stress disorder Sleep apnea CPAP (VERBALIZED HAS NOT BEEN USING) Thyroid disease Surgical History H/O exploratory laparotomy History of appendectomy History of section X 2 History of cholecystectomy History of colonoscopy History of cystoscopy History of dilatation and curettage X 3 History of esophagogastroduodenoscopy (EGD) 03/07/19 [facility] History of herniorrhaphy History of hysterectomy History of lithotripsy History of tooth extraction Social History Smoking Status: Never smoker Second Hand Exposure: No; Hx Alcohol Use: No Hx Substance Use: No Preferred Language: Qatari Communication Ability: Effective Skin Pass Operator Required: No Beliefs That Will Affect Care: None Current Living Situation: Alone Feels Safe at Home: Yes Assistive Devices: CPAP, Denture - Upper, Denture - Lower and Glasses Allergies Allergies Allergy/AdvReac Type Severity Reaction Status Date / Time chicken derived Allergy Severe THROAT Verified 04/30/21 22:36 SWELLS ciprofloxacin Allergy Severe SWELLS UP Verified 04/30/21 22:36 THROAT AND CAN'T BREATHE egg Allergy Severe THROAT Verified 04/30/21 22:36 SWELLS hornet venom Allergy Severe SWELLS Verified 04/30/21 22:36 THROAT oxycodone Allergy Severe airway Verified 04/30/21 22:36 edema Poultry Allergy Severe "[place]" Verified 04/30/21 22:36 -- Throat swelling soy Allergy Severe ALLERGY Verified 04/30/21 22:36 TEST + Beef Containing Products Allergy Intermediate GI SYMPTOMS Verified 04/30/21 22:36 Fish Containing Products Allergy Intermediate Throat Verified 04/30/21 22:36 swells sesame seed Allergy Intermediate "Sesame" - Verified 04/30/21 22:36 + ALLERGY TEST sumatriptan Allergy Intermediate throat Verified 04/30/21 22:36 swelling sunflower seed Allergy Intermediate + ALLERGY Verified 04/30/21 22:36 TEST tomato Allergy Intermediate + ALLERGY Verified 04/30/21 22:36 TEST Quinolones Allergy Mild ITCHY RASH Verified 04/30/21 22:36 ON HEAD,CHEST,ARMS DURING IV INFUSION acetaminophen [From Percocet] Allergy Unknown Verified 04/30/21 22:36 iodine Allergy Unknown Verified 04/30/21 22:36 salicylates Allergy Unknown Verified 04/30/21 22:36 wheat Allergy Unknown Verified 04/30/21 22:36 diphenhydramine AdvReac Intermediate IV Verified 04/30/21 22:36 GIVEN-"FELT DOPED UP AFTER INJECTED" aspirin AdvReac Mild UPSET Verified 04/30/21 22:36 STOMACH morphine AdvReac Mild Drowsy Verified 04/30/21 22:36 orange juice AdvReac Mild Gastrointestinal Verified 04/30/21 22:36 Upset Home Meds Home Medications Medication Instructions Recorded Confirmed Dulera 2 puff INHALATION Q12H 02/27/19 04/30/21 cholecalciferol (vitamin D3) 5,000 unit PO QAM 02/27/19 04/30/21 [Vitamin D3] epinephrine [EpiPen] 0.3 mg IM Q3H PRN 02/27/19 04/30/21 ipratropium-albuterol 3 ml INHALATION Q8H PRN 02/27/19 04/30/21 lactulose 30 ml PO TID PRN 02/27/19 04/30/21 promethazine 25 mg PO Q6H PRN 02/27/19 04/30/21 bupropion HCl [Wellbutrin XL] 300 mg PO QAM 10/06/20 04/30/21 fluticasone propionate 2 puff INHALATION BID PRN 04/29/21 04/30/21 loratadine [Claritin] 10 mg PO DAILY 04/29/21 04/30/21 montelukast [Singulair] 10 mg PO PM 04/29/21 04/30/21 albuterol sulfate 2 puff INHALATION QID PRN 04/30/21 04/30/21 lurasidone [Latuda] 40 mg PO QPM 04/30/21 04/30/21 naratriptan 2.5 mg PO DAILY PRN 04/30/21 04/30/21 vilazodone [Viibryd] 10 mg PO DAILY 04/30/21 04/30/21 Previous Rx's Medication Instructions Recorded topiramate 200 mg tablet 200 mg PO BID 30 Days #60 tab 04/04/21 Results & Data (ED) Vital Signs Vital Signs - 24 hr 04/30/21 19:09 04/30/21 21:41 04/30/21 23:20 Temperature 36.6 C Temperature Source Temporal Artery Scan Pulse Rate 77 Pulse Rate [Finger] 66 56 L Pulse Rhythm Regular Pulse Strength Normal Respiratory Rate 20 18 16 Respiratory Effort / Characteristics Non-Labored Spontaneous Non-Labored Spontaneous Non-Labored Spontaneous Respiratory Depth Normal Normal Normal Respiratory Pattern Regular Regular Blood Pressure 105/72 Blood Pressure [Right Arm] 101/67 106/71 Blood Pressure Mean 83 Blood Pressure Mean [Right Arm] 78 82 Blood Pressure Position Sitting Blood Pressure Position [Right Arm] Lying Right Lateral Pulse Oximetry 100 98 97 Oxygen Delivery Method Room Air Room Air Sepsis Recent Fever Within 48 Hours No Sepsis New/Unexplained Change in Mental Status No Sepsis Action Taken by Nursing No Action Required Laboratory Data Result diagrams: 04/30/21 21:42 04/30/21 21:42 Lab Results 04/30/21 04/30/21 04/30/21 Range/Units 21:42 21:42 21:42 WBC 5.63 (4.8-10.8) K/uL RBC 4.16 L (4.2-5.4) M/uL Hgb 12.6 (12.0-16.0) g/dL Hct 39.0 (37-47) % MCV 93.8 (80-100) fL MCH 30.3 (25-34) pg MCHC 32.3 (32-36) g/dL RDW Std Deviation 47.3 H (36.4-46.3) fL RDW Coeff of [place] 13.8 (11.5-14.5) % Plt Count 314 (130-400) K/uL MPV 11.8 H (7.4-10.4) fL Immature Gran % (Auto) 0.2 % Neut % (Auto) 34.2 % Lymph % (Auto) 46.2 % [place] % (Auto) 5.9 % Eos % (Auto) 10.8 % Baso % (Auto) 2.7 % Neut # (Auto) 1.93 (1.4-6.5) K/uL Lymph # (Auto) 2.60 (1.2-3.4) K/uL [place] # (Auto) 0.33 (0.11-0.59) K/uL Eos # (Auto) 0.61 H (0-0.5) K/uL Baso # (Auto) 0.15 (0-0.2) K/uL Immature Gran # (Auto) 0.01 (0.00-0.02) K/uL Sodium 143 (136-145) mmol/L Potassium 3.6 (3.5-5.1) mmol/L Chloride 114 H (98-107) mmol/L Carbon Dioxide 25 (21-32) mmol/L Anion Gap 5.0 (3-11) BUN 15 (7-18) mg/dl Creatinine 1.10 (0.6-1.2) mg/dl Est Cr Clr Drug Dosing 48.4 ml/min Est GFR ( Amer) 67.8 ml/min Est GFR (Non-Af Amer) 58.5 ml/min BUN/Creatinine Ratio 13.5 (10-20) Glucose 87 (70-99) mg/dl Calcium 9.2 (8.5-10.1) mg/dl HCG, Qual Negative (Negative) COVID-19 Eval Order 05/01/21 Range/Units 00:04 WBC (4.8-10.8) K/uL RBC (4.2-5.4) M/uL Hgb (12.0-16.0) g/dL Hct (37-47) % MCV (80-100) fL MCH (25-34) pg MCHC (32-36) g/dL RDW Std Deviation (36.4-46.3) fL RDW Coeff of [place] (11.5-14.5) % Plt Count (130-400) K/uL MPV (7.4-10.4) fL Immature Gran % (Auto) % Neut % (Auto) % Lymph % (Auto) % [place] % (Auto) % Eos % (Auto) % Baso % (Auto) % Neut # (Auto) (1.4-6.5) K/uL Lymph # (Auto) (1.2-3.4) K/uL [place] # (Auto) (0.11-0.59) K/uL Eos # (Auto) (0-0.5) K/uL Baso # (Auto) (0-0.2) K/uL Immature Gran # (Auto) (0.00-0.02) K/uL Sodium (136-145) mmol/L Potassium (3.5-5.1) mmol/L Chloride (98-107) mmol/L Carbon Dioxide (21-32) mmol/L Anion Gap (3-11) BUN (7-18) mg/dl Creatinine (0.6-1.2) mg/dl Est Cr Clr Drug Dosing ml/min Est GFR ( Amer) ml/min Est GFR (Non-Af Amer) ml/min BUN/Creatinine Ratio (10-20) Glucose (70-99) mg/dl Calcium (8.5-10.1) mg/dl HCG, Qual (Negative) COVID-19 Eval Order Covid19 at [facility] Administered Medications Sodium Chloride (Nss 1000ml) 1,000 mls @ 80 mls/hr IV .[id number] ANSELMO Stop: 05/30/21 23:44 Last Admin: 05/01/21 00:40 Dose: 80 mls/hr Documented by: [id number] Magnesium Sulfate/Dextrose (Magnesium Sulfate / D5w) 1 gm in 100 mls @ 100 mls/hr IV NOW STA Stop: 05/01/21 01:30 Last Admin: 05/01/21 00:37 Dose: 100 mls/hr Documented by: [id number] Discontinued Medications Dexamethasone (Dexamethasone Sod Inj 4 Mg/Ml Vial) Confirm Administered Dose 8 mg .ROUTE .STK-MED ONE Stop: 04/30/21 23:09 Last Admin: 04/30/21 23:15 Dose: Not Given Documented by: [id number] Sodium Chloride (Nss 1000ml) 1,000 mls @ 999 mls/hr IV .Q1H1M ANSELMO Stop: 04/30/21 22:30 Last Infusion: 04/30/21 22:38 Dose: 0 mls/hr Documented by: [id number] Admin: 04/30/21 21:37 Dose: 999 mls/hr Documented by: [id number] Dexamethasone 6 mg/ Syringe 1.5 mls @ 1 mls/min IV ONE ONE Stop: 04/30/21 22:57 Last Admin: 04/30/21 23:15 Dose: 1 mls/min Documented by: [id number] Ketorolac Tromethamine (Ketorolac Tromethamine 15 Mg/Ml Vial) 15 mg IV NOW STA Stop: 04/30/21 22:34 Last Admin: 04/30/21 23:17 Dose: 15 mg Documented by: [id number] Metoclopramide HCl (Metoclopramide Hcl Inj 5 Mg/Ml 2 Ml Vial) 5 mg IV NOW STA Stop: 04/30/21 21:21 Last Admin: 04/30/21 21:37 Dose: 5 mg Documented by: [id number] Ondansetron HCl (Ondansetron Inj 2 Mg/Ml 2 Ml Vial) 4 mg IV NOW STA Stop: 04/30/21 22:34 Last Admin: 04/30/21 23:11 Dose: 4 mg Documented by: [id number] Discharge Plan Visit Data Chief Complaint: Headache Stated Complaint: HEADACHE ED Provider: Kenny Colvin Discharge Problem: Post-dural puncture headache, Fatigue, Nausea & vomiting Patient Disposition: Being Evaluated by Hospitalist Forms Stand Alone Forms: [facility] Prescriptions Prescriptions: No Action topiramate [Topamax] 200 mg tablet 200 mg PO BID 30 Days Qty: 60 RF: 5 ipratropium-albuterol 0.5 mg-3 mg(2.5 mg base)/3 mL Solution For Nebulization 3 ml INHALATION Q8H PRN (Reason: SHORT OF BREATH) RF: 0 promethazine 25 mg Tablet 25 mg PO Q6H PRN (Reason: Nausea) RF: 0 epinephrine [EpiPen] 0.3 mg/0.3 mL Auto-Injector 0.3 mg IM Q3H PRN (Reason: Allergic Reaction) RF: 0 lactulose 10 gram/15 mL Solution 30 ml PO TID PRN (Reason: Constipation) RF: 0 cholecalciferol (vitamin D3) [Vitamin D3] 5,000 unit Tablet 5,000 unit PO QAM RF: 0 Dulera 200-5 mcg/actuation Hfa Aerosol Inhaler 2 puff INHALATION Q12H RF: 0 bupropion HCl [Wellbutrin XL] 300 mg tablet extended release 24 hr 300 mg PO QAM RF: 0 fluticasone propionate 44 mcg/actuation Hfa Aerosol Inhaler 2 puff INHALATION BID PRN (Reason: Allergy Symptoms) RF: 0 montelukast [Singulair] 10 mg Tablet 10 mg PO PM RF: 0 loratadine [Claritin] 10 mg Tablet 10 mg PO DAILY RF: 0 Latuda 40 mg tablet 40 mg PO QPM RF: 0 naratriptan 2.5 mg tablet 2.5 mg PO DAILY PRN (Reason: Migraine Headache) RF: 0 Viibryd 10 mg tablet 10 mg PO DAILY RF: 0 albuterol sulfate 90 mcg/actuation HFA aerosol inhaler 2 puff INHALATION QID PRN (Reason: tightness/sob) RF: 0 Referrals Referrals: Miesha Robison DO [Primary Care Provider] - Discharge Problem: Fatigue Qualifiers: Fatigue type: unspecified Qualified Code(s): R53.83 - Other fatigue Nausea & vomiting Qualifiers: Vomiting type: unspecified Vomiting Intractability: intractable Qualified Code(s): R11.2 - Nausea with vomiting, unspecified
[2021-05-01] MEDS ORDERED: ALBUTEROL HFA 8 GM INHALER INH PRN (02:58)
[2021-05-01] MEDS ORDERED: PROMETHAZINE HCL 25 MG TAB PO PRN (02:58)
[2021-05-01] MEDS ORDERED: ALBUT/IPRATROP 3MG/0.5MG NEB 3 ML VIAL INH PRN (02:58)
--- NOTE | 2021-05-01 03:26 | History and Physical Report ---
DATE OF ADMISSION: 05/01/2021 CHIEF COMPLAINT: Severe headache. HISTORY OF PRESENT ILLNESS: This is a 51-year-old female with past medical history significant for history of mucinous neoplasm of pancreas, status post distal pancreatectomy, history of asthma moderate persistent, reactive airway disease, nonallergic rhinitis, history of dysphagia, reflux esophagitis, gastroparesis, irritable bowel syndrome, history of esophagitis, GERD, urge incontinence of urine, stress incontinence, headache, tremor due to multiple drugs, migraines, major depression, family history of breast cancer, incisional hernia, bipolar 1 disorder, food allergy. Lives alone, presents with severe headache. The patient was having migraines. The patient was worked up for MS by neurology and yesterday she had a lumbar puncture. At that time, she noticed some headache, but on going home the headache got severe and she came to the ER. Seen by anesthesia, recommended fluids and pain control and they want to get neurology clearance for doing any blood patch. Currently, the patient's pain is severe, lights bothering her. Has nausea, vomited a few times. Pain all over the head. Denies any blurred visions. Some ringing noise in the ears. No runny nose, no sore throat, no cough, no fever, no chills, no chest pain, no shortness of breath. No abdominal pain. Normal bowel and bladder movements. No swelling in the legs, ambulating okay. ALLERGIES: CHICKEN DERIVED, CIPROFLOXACIN, EGG, HORNET VENOM, OXYCODONE, POULTRY, SOYA, BEEF-CONTAINING PRODUCTS, FISH-CONTAINING PRODUCTS, SESAME SEED, SUMATRIPTAN, SUNFLOWER SEED, TOMATO, QUINOLONES, ACETAMINOPHEN FROM PERCOCET, IODINE, SALICYLATES, WHEAT, DIPHENHYDRAMINE, ASPIRIN, MORPHINE, ORANGE JUICE. PAST MEDICAL HISTORY: As mentioned above. PAST SURGICAL HISTORY: , colonoscopy with biopsy, EGD with transendoscopic dilatation, EGD with biopsies, EGD with endoscopic ultrasound, laparoscopic inguinal hernia repair, partial hysterectomy, RIH repair, appendectomy, cholecystectomy, total abdominal hysterectomy with removal of tubes, umbilical hernia repair, diagnostic laparoscopy with lysis of right lower quadrant adhesions, laparoscopic ventral hernia repair. MEDICATIONS: The patient is on albuterol 2 puffs inhalation q.i.d. p.r.n., Wellbutrin 300 mg p.o. a.m., vitamin D 5000 units p.o. a.m., Dulera 2 puffs inhalation b.i.d., EpiPen 0.3 mg IM every 3 hours p.r.n., Flonase 2 puffs inhalation b.i.d. p.r.n., DuoNebs q. 8 hours p.r.n., lactulose 30 mL p.o. t.i.d. p.r.n., loratadine 10 mg p.o. daily, Latuda 40 mg p.o. p.m., Singulair 10 mg p.o. p.m.,naratriptan 2.5 mg p.o. daily p.r.n., promethazine 25 mg p.o. q. 6 hours p.r.n., Topamax 200 mg p.o. b.i.d., vilazodone 10 mg p.o. daily. FAMILY HISTORY: Significant for mother has allergies; daughter has irritable bowel syndrome and asthma; paternal aunt has breast cancer; paternal grandmother had breast cancer; father has heart disorder; paternal grandfather has heart disorder; paternal grandmother has heart disorder. SOCIAL HISTORY: Lives alone. No smoking. Alcohol rarely. No drug use. REVIEW OF SYSTEMS: As per HPI. Rest of review of systems negative. PHYSICAL EXAMINATION: GENERAL: The patient is thin and frail, not in acute distress. VITAL SIGNS: Temperature 36.6, pulse 56, respiratory rate 16, blood pressure 106/71, oxygen 97% on room air. HEENT: Pupils equal, round, and reactive to light. Oral mucosa moist. NECK: No JVD, no neck masses. CARDIOVASCULAR: S1, S2 heard, regular rate and rhythm, no murmur, no gallop. RESPIRATORY SYSTEM: Normal AP diameter. No accessory muscle use. No wheezing, no crackles. ABDOMEN: Soft, bowel sounds present, nontender. No distention. CENTRAL NERVOUS SYSTEM: Cranial nerves II-XII grossly intact, nonfocal. EXTREMITIES: No edema, no erythema. LABORATORY DATA: WBC 5.6, hemoglobin 12.6, hematocrit 39, platelets 314. Sodium 143, potassium 3.6, chloride 114, CO2 of 25, BUN 15, creatinine 1.1, serum glucose 87, calcium 9.2. HCG qualitative negative. SARS-CoV-2 PCR negative. ASSESSMENT AND PLAN: This is a 51-year-old female who is status post lumbar puncture yesterday, comes with severe headache. 1. Severe headache post lumbar puncture: Seen by anesthesia. Pain control. Blood patch as per neurology. 2. History of depression: Continue her home medications. 3. Asthma: Continue home inhalers, currently stable. 4. Deep venous thrombosis prophylaxis: Sequential compression devices. DISPOSITION: Closely monitor in the medical floor. Expect to discharge home and follow with family doctor and neurology. Level 1 full code. MTDD
[2021-05-01] MEDS ORDERED: EPINEPHrine INJ 1 MG/ML AMP IM PRN (03:44)
[2021-05-01] MEDS ORDERED: FLUTICASONE FUROATE 100MCG 14 PUFFS/INHALER INH PRN (03:46)
[2021-05-01] MEDS ORDERED: LACTULOSE SYRUP 20 GM/30 ML UDC PO PRN (03:47)
[2021-05-01] MEDS: buPROPion XL 300 MG TABCR PO SCH (08:36)
[2021-05-01] MEDS: PANCREAZE (LIPASE 10,500U) CAP PO SCH ×4 (08:37→18:14)
[2021-05-01] MEDS: LORATADINE 10 MG TAB PO SCH (08:37)
[2021-05-01] MEDS: TOPIRAMATE 100 MG TAB PO SCH ×2 (08:37→22:39)
[2021-05-01] MEDS: CHOLECALCIFEROL 1,000 UNITS 25 MCG TAB PO SCH (08:37)
[2021-05-01] MEDS: FLUTICASONE/VILANTEROL 100/25MCG 14 PUFFS/INHALER INH SCH (08:38)
--- NOTE | 2021-05-01 09:23 | Neurology Consultation ---
Date of Consultation May 01, 2021 Assessment & Plan (1) Post-dural puncture headache: (2) Chronic migraine: (3) Essential tremor: (4) WAITER/WAITRESS CABIN CLASS demyelination: (5) Lumbar radicular pain: patient was admitted yesterday with a post LP headache unimproved with the treatments given in the ER. Her neurologic examination is unremarkable with no focal findings, meningeal signs, or encephalopathy. She had a recent LP because of WAITER/WAITRESS CABIN CLASS demyelination seen on MRI. So far the LP is unremarkable but special protein studies are pending. Patient may have multiple sclerosis but this has not been proven yet. Her history is somewhat suggestive of MS but not conclusive. Patient has essential tremor which is stable and chronic. She has a history of migraine headaches which are somewhat worse over this year compared to previous but are otherwise stable. Patient has several month history of low back pain with radicular sensory symptoms bilaterally left greater than right leg. Recommendations: 1. MRI of the lumbar spine without contrast. 2. Increase fluids 3. taper steroids ( 4 milligrams dexamethasone today and 2 milligrams dexamethasone tomorrow) 4. Consider increasing caffeine, via caffeinated fluids and/or Fioricet, which is good for post LP headaches. Fioricet can be given 1 tablet 3 times daily as needed. 5. could consider IV ketorolac or SQ sumatriptan 6mg 6. consult anesthesia for blood patch. I see no reason that a blood patch is contraindicated giving her lumbar spine and lower extremity symptoms. 7. I will consider additional medications for tremor (primidone) and for preventing migraines when we follow her up as an outpatient. Overall, I spent a total of 65 minutes with this case including review of records, review of MRI films, direct evaluation the patient at bedside and discussion of the case with the patient and her mother at bedside as well as Dr. Lagos, including differential diagnosis and treatment options. History of Present Illness Reason for Consultation: Patient is a 51-year-old, who I was asked to see at the request of Dr. Arevalo, for neurologic consultation regarding headache. Requesting Physician: Dr. arevalo Attending Physician: Cynthia Lagos MD History of Present Illness This patient has a longstanding history of essential tremor since her 20s. It is a little more prominent over time and currently help some with topiramate. She has failed propranolol and gabapentin for tremor in the past. In addition, the patient has a longstanding history of migraine headaches refractory to many medications but help some currently with topiramate. She tolerates topiramate and her weight has been stable. She had side effects to Emgality. She has had MRIs in the past with multiple white matter spots. They have been nonspecific and she has not really had a significant history suggestive of m ultiple sclerosis but in the past she has had episodes of weakness and numbness and claims that she has had episodes of visual loss in the past as well. Two weeks ago, she felt that she had decreased vision in the left eye and is still a little blurry. She was last seen in our office April 03, 2021 with headaches and low back pain. An MRI of the brain April 10 without contrast showed no acute changes but numerous small, nonspecific white matter spots diffusely bilaterally in the hemispheres, with a few more compared to the previous study of 2017. the MRI of 2018 showed no change from the MRI of 2016. an LP was performed April 29. He was clear and colorless with a normal opening pressure and 0 white cells or red cells. Protein was normal at 45.5. Lab study showed a positive CHARLY but no S jogren's or Lyme disease. Special protein studies of the CSF are pending. The patient has had low back pain for several months now. She has radicular symptoms of pain down the backs in size of the leg to the ankles bilaterally left greater than right side. She has numbness in the upper thighs bilaterally of a constant nature. She does not feel the legs are weak and she has no upper extremity pain, weakness, or numbness. Her balance is reasonable and she does not fall and she does not have urinary incontinence. Her energy level is good as is her mood. Mentation and speech are intact. The patient came to the emergency room last night with a post LP headache. This was a generalized headache and she had ringing in her ears bilaterally. It was a pressure sensation all over which was worse with being up and somewhat better with lying down. She was given dexamethasone IV as well as fluids, Toradol and she had a little relief. A lumbar blood patch was ordered by the ER doctor and anesthesia refused to do the blood patch because of her low back pain /lower extremity issues and wanted neuro clearance 1st. This morning she has the low back and lower extremity pain as before. She has a generalized headache and ringing in her ears bilaterally. She does not feel much different this morning that she did last evening. Blood pressure is 90/52 and CBC was unremarkable. Chem profile was unremarkable and Covid-19 was negative. She was not . Allergies Allergy/AdvReac Type Severity Reaction Status Date / Time chicken derived Allergy Severe THROAT Verified 04/30/21 22:36 SWELLS ciprofloxacin Allergy Severe SWELLS UP Verified 04/30/21 22:36 THROAT AND CAN'T BREATHE egg Allergy Severe THROAT Verified 04/30/21 22:36 SWELLS hornet venom Allergy Severe SWELLS Verified 04/30/21 22:36 THROAT oxycodone Allergy Severe airway Verified 04/30/21 22:36 edema Poultry Allergy Severe "[place]" Verified 04/30/21 22:36 -- Throat swelling soy Allergy Severe ALLERGY Verified 04/30/21 22:36 TEST + Beef Containing Products Allergy Intermediate GI SYMPTOMS Verified 04/30/21 22:36 Fish Containing Products Allergy Intermediate Throat Verified 04/30/21 22:36 swells sesame seed Allergy Intermediate "Sesame" - Verified 04/30/21 22:36 + ALLERGY TEST sumatriptan Allergy Intermediate throat Verified 04/30/21 22:36 swelling sunflower seed Allergy Intermediate + ALLERGY Verified 04/30/21 22:36 TEST tomato Allergy Intermediate + ALLERGY Verified 04/30/21 22:36 TEST Quinolones Allergy Mild ITCHY RASH Verified 04/30/21 22:36 ON HEAD,CHEST,ARMS DURING IV INFUSION acetaminophen [From Percocet] Allergy Unknown Verified 04/30/21 22:36 iodine Allergy Unknown Verified 04/30/21 22:36 salicylates Allergy Unknown Verified 04/30/21 22:36 wheat Allergy Unknown Verified 04/30/21 22:36 diphenhydramine AdvReac Intermediate IV Verified 04/30/21 22:36 GIVEN-"FELT DOPED UP AFTER INJECTED" aspirin AdvReac Mild UPSET Verified 04/30/21 22:36 STOMACH morphine AdvReac Mild Drowsy Verified 04/30/21 22:36 orange juice AdvReac Mild Gastrointestinal Verified 04/30/21 22:36 Upset Home Medications Medication Instructions Recorded Confirmed Type Dulera 2 puff INHALATION Q12H 02/27/19 04/30/21 History cholecalciferol (vitamin D3) 5,000 unit PO QAM 02/27/19 04/30/21 History [Vitamin D3] epinephrine [EpiPen] 0.3 mg IM Q3H PRN 02/27/19 04/30/21 History ipratropium-albuterol 3 ml INHALATION Q8H PRN 02/27/19 04/30/21 History lactulose 30 ml PO TID PRN 02/27/19 04/30/21 History promethazine 25 mg PO Q6H PRN 02/27/19 04/30/21 History bupropion HCl [Wellbutrin XL] 300 mg PO QAM 10/06/20 04/30/21 History topiramate 200 mg tablet 200 mg PO BID 30 Days #60 tab 04/04/21 04/30/21 Rx fluticasone propionate 2 puff INHALATION BID PRN 04/29/21 04/30/21 History loratadine [Claritin] 10 mg PO DAILY 04/29/21 04/30/21 History montelukast [Singulair] 10 mg PO PM 04/29/21 04/30/21 History albuterol sulfate 2 puff INHALATION QID PRN 04/30/21 04/30/21 History lurasidone [Latuda] 40 mg PO QPM 04/30/21 04/30/21 History naratriptan 2.5 mg PO DAILY PRN 04/30/21 04/30/21 History vilazodone [Viibryd] 10 mg PO DAILY 04/30/21 04/30/21 History Patient History Medical History (Updated 05/01/21 @ 09:35 by Js Reyes MD) Anemia Anxiety Asthma USES PRN INH 1 X Q2W ON AVERAGE Attention deficit disorder (ADD) Bipolar disorder Chronic obstructive pulmonary disease Cyst of pancreas Depression Dysphagia Fibromyalgia Gastroparesis IBS (irritable bowel syndrome) Kidney stones Migraine Multiple allergies Multiple sclerosis Post traumatic stress disorder Sleep apnea CPAP (VERBALIZED HAS NOT BEEN USING) Thyroid disease Surgical History H/O exploratory laparotomy History of appendectomy History of section X 2 History of cholecystectomy History of colonoscopy History of cystoscopy History of dilatation and curettage X 3 History of esophagogastroduodenoscopy (EGD) 03/07/19 [facility] History of herniorrhaphy History of hysterectomy History of lithotripsy History of tooth extraction Family History Father Heart disease Social History Smoking Status: Never smoker Second Hand Exposure: No; Hx Alcohol Use: No Hx Substance Use: No Preferred Language: Occitan Communication Ability: Effective Music Therapist Required: No Beliefs That Will Affect Care: None Current Living Situation: Alone current occupational status: unemployed Other Information That Helps Us Care for You: No Feels Safe at Home: Yes Safety Concerns: Feels Safe At This Time Assistive Devices: Denture - Upper and Denture - Lower Assistive Devices Comment: reading glasses Review of Systems Constitutional: no fever, no fatigue and no weakness Eyes: + worsening vision; no diplopia and no eye pain Ear, Nose, Mouth, Throat: + tinnitus; no ear pain, no hearing loss, no dizziness, no hoarseness and no dysphagia Respiratory: no cough and no dyspnea Cardiovascular: no chest pain, no palpitations and no lightheadedness Gastrointestinal: no abdominal pain, no nausea and no vomiting Genitourinary: no dysuria, no urinary frequency and no urinary incontinence Musculoskeletal: + back pain; no neck pain, no radicular pain, no joint pain and no myalgia Integumentary: no rash and no lesions Neurologic: + numbness, + radiating pain, + tremor(s) and + headache(s); no gait abnormality, no localized weakness, no generalized weakness, no tingling, no abnormal movements, no abnormal speech, no confusion and no memory loss Psychiatric: no depression, no irritability, no anxiety, no difficulty concentrating, no confusion and no hallucinations Endocrine: no fatigue and no flushing Hematologic / Lymphatic: no easy bleeding and no easy bruising Allergy / Immunological: no urticaria and no problem reported Exam (Neuro) Physical Exam: The patient is right-handed. The patient is awake, alert, and attentive. Speech is normal without any aphasia or dysarthria. She can name objects, repeat phrases, and has normal spontaneous speech. Mentation and thought processes are intact, with orientation to person, place and time, and normal fund of knowledge. Attention and concentration are normal. Mood and affect are normal and appropriate. General appearance and grooming are normal. Short and long-term memory are intact. Pupils are 4 mm bilaterally and reactive to light. Extraocular eye muscles are intact without nystagmus. Visual acuity and visual kong seem normal grossly to confrontation. There are no deficits to sensation in the face in all 3 distributions of the fifth cranial nerve bilaterally. Corneal reflexes are positive bilaterally. Facial strength and symmetry was normal bilaterally. Hearing seems normal to whisper and finger rub bilaterally. Palate moves well without asymmetry. There is normal sternocleidomastoid and trapezius (shoulder shrug) strength bilaterally. Tongue is midline with good strength bilaterally. Neck has a full range of motion without discomfort. There are no cervical bruits bilaterally. There are no cranial or ocular bruits. Heart is without murmur. There is a regular rhythm and rate. Cervical, thoracic, and lumbar spine are nontender to palpation. Gait is not tested but stance sitting up in bed is quite normal. With outstretched arms there is no drift. There are no resting, postural, or action tremors. There is no ataxia with finger to nose testing. There is good facility in the hands. No other abnormal involuntary movements are noted. Motor strength is 5/5 diffusely in the arms bilaterally including deltoids, biceps, triceps, brachioradialis, wrist flexors and extensors, statistical technician, and intrinsic hand muscles. Motor strength is 5/5 diffusely in the legs bilaterally including hip flexors, quadriceps, hamstrings, gastrocnemius, tibialis anterior, tibialis posterior, and Peroneii muscles. Toe extensors are normal and there is good bulk in the extensor digitorum brevis muscles bilaterally. The limbs have good tone without rigidity or spasticity. There is no atrophy noted in the muscles. Muscle bulk is normal, there is no tenderness to palpation, no myotonia to percussion, and no fasciculations seen. Sensory examination is intact to touch and pin throughout all 4 limbs diffusely. Reflexes are 2/4 in the biceps, triceps, brachioradialis, quadriceps, and Achilles tendons bilaterally. There is no clonus bilaterally. Toes are downgoing with plantar stimulation bilaterally. Peripheral pulses are present and of normal quality distally in all 4 limbs. There is no peripheral edema noted in the limbs. Results & Data ([facility]) Vital Signs (Past 12 Hours) Vital Signs Temp Pulse Resp BP Pulse Ox 05/01/21 07:33 36.7 C 72 15 90/52 L 95 05/01/21 03:22 36.6 C 73 14 111/74 97 05/01/21 02:36 60 18 101/62 97 04/30/21 23:20 56 L 16 106/71 97 04/30/21 21:41 66 18 101/67 98 PG Care Time/CCT Total # of Minutes Spent Total Time Spent with Patient: Total time spent is greater than 50% in coordination of care (as documented) at patient's floor/unit and/or counseling patient: Coding Level of Care Code 58337 OBS Care - Level 3 Diagnoses Post-dural puncture headache G97.1 Chronic migraine G43.709 Essential tremor G25.0 WAITER/WAITRESS CABIN CLASS demyelination G37.9 Lumbar radicular pain M54.16 Time Spent (min) 65
[2021-05-01] MEDS ORDERED: dexAMETHasone 4 MG in SYRINGE 0 ML IV ONE (10:00)
--- NOTE | 2021-05-01 12:31 | Hospitalist Progress Note ---
Date of Service May 01, 2021 Assessment & Plan (1) Lumbar radicular pain: (2) Post-dural puncture headache: (3) Chronic migraine: (4) FOREST RESOURCE SPECIALIST demyelination: Discussed patient extensively with the neurologist. Patient known to neurologist and has been followed up over the years for essential tremor, migraine, some white matter spots in MRI for which she is being evaluated for possible MS. Had lumbar puncture 2 days ago presented yesterday with post lumbar puncture headache. Pain control with Fioricet and ketorolac Got dexamethasone 6 mg yesterday we will do 4 mg today and 2 mg tomorrow per neurology recommendations Anesthesiology consult for blood patch. Continue IV fluids Lumbar spine MRI was unremarkable Admission and Anticipated Discharge Date Admission Date: May 01, 2021 Subjective 51-year-old female with past medical history significant for history of mucinous neoplasm of pancreas, status post distal pancreatectomy, history of asthma moderate persistent, reactive airway disease, nonallergic rhinitis, history of dysphagia, reflux esophagitis, gastroparesis, irritable bowel syndrome, history of esophagitis, GERD, urge incontinence of urine, stress incontinence, headache, tremor due to multiple drugs, migraines, major depression, family history of breast cancer, incisional hernia, bipolar 1 disorder, food allergy who presents with severe headache after Lumbar puncture Patient seen and examined. She reports severe headache, described as squeezing, mostly in the posterior part of the head Reports tinnitus. Denies nausea, vomiting. Reports low back pain at the site of the fall.. Reports lower extremity numbness and occasional weakness Review of Systems Review of Systems: All systems reviewed & are unremarkable except as noted in Subjective Physical Exam Constitutional: + well hydrated; no acute distress Eyes: PERRL, conjunctivae normal, anicteric sclerae ENMT: external ear and nose normal, oropharynx normal Respiratory: normal respiratory effort, lungs clear to auscultation Cardiovascular: RRR, no murmur, no edema Gastrointestinal (Abdomen): normal bowel sounds, soft, nontender, no hepatosplenomegaly Musculoskeletal: no cyanosis or clubbing, extremities motor strength 5/5 Neurologic: PERRL, EOMI, accommodation nl, no face palsy, no dysarthria Psychiatric: Orientation: alert and oriented x 3 Results & Data Results & Data ([facility]) Vital Signs (Past 12 Hours) Vital Signs Temp Pulse Resp BP Pulse Ox 05/01/21 07:33 36.7 C 72 15 90/52 L 95 05/01/21 03:22 36.6 C 73 14 111/74 97 05/01/21 02:36 60 18 101/62 97 Laboratory Results Abnormal lab results 04/30/21 04/30/21 Range/Units 21:42 21:42 RBC 4.16 L (4.2-5.4) M/uL RDW Std Deviation 47.3 H (36.4-46.3) fL MPV 11.8 H (7.4-10.4) fL Eos # (Auto) 0.61 H (0-0.5) K/uL Chloride 114 H (98-107) mmol/L
--- NOTE | 2021-05-01 13:09 | Magnetic Resonance Report ---
MR lumbar spine wo con CLINICAL HISTORY: 51 years-old Female with For bilateral LE radiculopathy. Acute low back pain with lower extremity radicular symptoms COMPARISON: CT abdomen and pelvis 10/06/2020, lumbar puncture 04/29/2021. TECHNIQUE: Multiplanar, multi sequence MRI of the lumbar spine was performed without intravenous cont rast. FINDINGS: The catalyst unit operator localizer images demonstrate no gross extraspinal abnormality. Signal within the imaged tho racic spinal cord and cauda equina is unremarkable. Study is motion degraded. No acute fracture, subl uxation, bone marrow or soft tissue edema. No significant discogenic degeneration, central canal or n eural foraminal narrowing. No endplate erosions. T11 and L1 vertebral body hemangiomata are noted zuly suring 1.3 and 0.7 cm respectively. T12-L1: No central canal or neural foraminal stenosis. L1-L2: No central canal or neural foraminal stenosis. L2-L3: No central canal or neural foraminal stenosis. L3-L4: No central canal or neural foraminal stenosis. L4-L5: No central canal or neural foraminal stenosis. L5-S1: No central canal or neural foraminal stenosis. IMPRESSION: Unremarkable MRI of the lumbar spine. ACT 112: Negative or not required by law. The above report was generated using voice recognition software. It may contain grammatical, syntax o r spelling errors. Electronically signed by: Urbano Jackson M.D. 05/01/2021 1:08 PM
[2021-05-01] MEDS: VILAZODONE HCL 10 MG PO SCH (14:36)
[2021-05-01] MEDS: BUTALBITAL/ACETAMIN/CAFFEINE TAB PO PRN (18:26)
[2021-05-01] MEDS: KETOROLAC 30 MG/ML VIAL IV PRN (19:31)
[2021-05-01] MEDS: MONTELUKAST SODIUM 10 MG TABLET PO SCH (22:39)
[2021-05-01] MEDS: LURASIDONE HCL 40 MG TAB PO SCH (22:39)
[2021-05-02] MEDS: SODIUM CHLORIDE 0.9% 1000ML 1,000 ML IV SCH ×2 (07:52→16:00)
[2021-05-02] MEDS: PANCREAZE (LIPASE 10,500U) CAP PO SCH ×3 (07:52→16:01)
[2021-05-02 07:53] LABS: Hematocrit (blood only) 34.4 % (37-47); Hemoglobin 10.8 g/dL (12.0-16.0); Mean Corpuscular Hemoglobin 29.4 pg (25-34); Mean Corpuscular Hgb Conc 31.4 g/dL (32-36); Mean Corpuscular Volume 93.7 fL (80-100); Platelet Count 278 K/uL (130-400); RDW Coefficient of Variation 13.7 % (11.5-14.5); RDW Standard Deviation 46.7 fL (36.4-46.3); Red Blood Count 3.67 M/uL (4.2-5.4); White Blood Count 7.99 K/uL (4.8-10.8)
[2021-05-02] MEDS: buPROPion XL 300 MG TABCR PO SCH (07:53)
[2021-05-02] MEDS: LORATADINE 10 MG TAB PO SCH (07:53)
[2021-05-02] MEDS: TOPIRAMATE 100 MG TAB PO SCH ×2 (07:53→21:04)
[2021-05-02] MEDS: CHOLECALCIFEROL 1,000 UNITS 25 MCG TAB PO SCH (07:54)
[2021-05-02] MEDS: VILAZODONE HCL 10 MG PO SCH (07:54)
[2021-05-02] MEDS: FLUTICASONE/VILANTEROL 100/25MCG 14 PUFFS/INHALER INH SCH (07:54)
[2021-05-02 08:22] LABS: BUN Creatinine Ratio 10.8 (10-20); Calcium 8.3 mg/dl (8.5-10.1); Creatinine Clr Calc Pharmacy 54.9 ml/min; Est GFR (African American) 78.9 ml/min; Est GFR (Non-African American) 68.1 ml/min; Magnesium 2.1 mg/dl (1.8-2.4); Potassium 3.4 mmol/L (3.5-5.1)
--- NOTE | 2021-05-02 10:10 | Neurology Progress Note ---
Date of Service May 02, 2021 Assessment & Plan (1) Post-dural puncture headache: (2) Chronic migraine: (3) Essential tremor: (4) WINDSCREEN FITTER demyelination: (5) Lumbar radicular pain: Patient was admitted April 30 with a post LP headache, unimproved with the treatments given in the ER or in the hospital so far. Her neurologic examination is unremarkable with no focal findings, meningeal signs, or encephalopathy. She had an LP April 29, because of WINDSCREEN FITTER demyelination seen on MRI. So far the LP is unremarkable but special protein studies are pending. Patient may have multiple sclerosis but this has not been proven yet. Her history is somewhat suggestive of MS but not conclusive. Patient has essential tremor which is stable and chronic. She has a history of migraine headaches which are somewhat worse over this year compared to previous but are otherwise stable. Patient has several month history of low back pain with radicular sensory symptoms bilaterally left greater than right leg. MRI of the lumbar spine was unremarkable Recommendations: 1. Increase fluids 2. taper steroids ( 4 milligrams dexamethasone today and 2 milligrams dexamethasone tomorrow) 3. Consider increasing caffeine, via caffeinated fluids and/or Fioricet, which is good for post LP headaches. Fioricet can be given 1 tablet 3 times daily as needed. 4. consider IV ketorolac or SQ sumatriptan 6mg 5. consult anesthesia for blood patch. I see no reason that a blood patch is contraindicated giving her lumbar spine and lower extremity symptoms. 6. I will consider additional medications for tremor (primidone) and for preventing migraines when we follow her up as an outpatient. Overall, I spent a total of 25 minutes with this case including review of records, review of MRI films, direct evaluation the patient at bedside and discussion of the case with the patient at bedside as well as Dr. Lagos, including differential diagnosis and treatment options. Admission and Anticipated Discharge Date Admission Date: May 01, 2021 Subjective Patient still has headache worse with getting up than lying down. The medications given to her yesterday did not help. She did not get a blood patch yet. MRI of the lumbar spine was largely unremarkable. She remains afebrile. Results & Data ([facility]) Vital Signs (Past 12 Hours) Vital Signs Temp Pulse Resp BP Pulse Ox 05/02/21 07:31 36.5 C 59 L 16 119/75 98 05/01/21 22:33 36.7 C 76 18 102/64 96 Exam (Neuro) Physical Exam: She is awake and alert. Speech is without aphasia or dysarthria. PG Care Time/CCT Total # of Minutes Spent Total Time Spent with Patient: Total time spent is greater than 50% in coordination of care (as documented) at patient's floor/unit and/or counseling patient: Coding Level of Care Code 10150 Subseq Hosp Care Lvl 2 Diagnoses Post-dural puncture headache G97.1 Chronic migraine G43.709 Essential tremor G25.0 WINDSCREEN FITTER demyelination G37.9 Lumbar radicular pain M54.16 Time Spent (min) 25
--- NOTE | 2021-05-02 11:51 | Hospitalist Progress Note ---
Date of Service May 02, 2021 Assessment & Plan (1) Lumbar radicular pain: (2) Post-dural puncture headache: (3) Chronic migraine: (4) MACHINE ICER demyelination: Patient known to neurologist and has been followed up over the years for essential tremor, migraine, some white matter spots in MRI for which she is being evaluated for possible MS. Had lumbar puncture 2 days ago presented yesterday with post lumbar puncture headache. Pain control with Fioricet and ketorolac has not helped with headache Neurologist recommendations appreciated I called and spoke to Anesthesiologist (Dr Ordonez) today They will evaluate and possibly do the blood patch today Continue IV fluids Lumbar spine MRI was unremarkable Admission and Anticipated Discharge Date Admission Date: May 01, 2021 Subjective 51-year-old female with past medical history significant for history of mucinous neoplasm of pancreas, status post distal pancreatectomy, history of asthma moderate persistent, reactive airway disease, nonallergic rhinitis, history of dysphagia, reflux esophagitis, gastroparesis, irritable bowel syndrome, history of esophagitis, GERD, urge incontinence of urine, stress incontinence, headache, tremor due to multiple drugs, migraines, major depression, family history of breast cancer, incisional hernia, bipolar 1 disorder, food allergy who presents with severe headache after Lumbar puncture Patient seen and examined. Still reports severe headache, described as squeezing, Unchanged Reports tinnitus. Denies nausea, vomiting. Reports low back pain at the site of the LP Reports occasional lower extremity numbness and occasional weakness Review of Systems Review of Systems: All systems reviewed & are unremarkable except as noted in Subjective Physical Exam Constitutional: + well hydrated; no acute distress Eyes: PERRL, conjunctivae normal, anicteric sclerae ENMT: external ear and nose normal, oropharynx normal Respiratory: normal respiratory effort, lungs clear to auscultation Cardiovascular: RRR, no murmur, no edema Gastrointestinal (Abdomen): normal bowel sounds, soft, nontender, no hepatosplenomegaly Musculoskeletal: no cyanosis or clubbing, extremities motor strength 5/5 Neurologic: PERRL, EOMI, accommodation nl, no face palsy, no dysarthria Psychiatric: Orientation: alert and oriented x 3 Results & Data Results & Data ([facility]) Vital Signs (Past 12 Hours) Vital Signs Temp Pulse Resp BP Pulse Ox 05/02/21 07:31 36.5 C 59 L 16 119/75 98 Laboratory Results Abnormal lab results 05/02/21 05/02/21 Range/Units 07:06 07:06 RBC 3.67 L (4.2-5.4) M/uL Hgb 10.8 L (12.0-16.0) g/dL Hct 34.4 L (37-47) % MCHC 31.4 L (32-36) g/dL RDW Std Deviation 46.7 H (36.4-46.3) fL MPV 11.0 H (7.4-10.4) fL Sodium 146 H (136-145) mmol/L Potassium 3.4 L (3.5-5.1) mmol/L Chloride 118 H (98-107) mmol/L Carbon Dioxide 20 L (21-32) mmol/L Calcium 8.3 L (8.5-10.1) mg/dl
--- NOTE | 2021-05-02 13:16 | Procedure Note ---
Procedure Note Date of Service May 02, 2021 Please see note from 04/30/21 for original anesthesia evaluation done by myself. Since I originally saw the patient she continues to have a headache unrelieved by other measures. The headache is not improving. The patient had a normal MRI spine and is cleared by neurology for epidural blood patch. At this time, the patient is denying any positional component to this headache and so I am concerned that this may no longer be a post dural puncture headache. After extensively discussing the risks of blood patch, including the risk that this may not provide any relief, especially if the headache is not due to a CSF leak, the patient would like to proceed. Anesthesia consent signed and all questions answered. Zoila Clark MD, PhD Anesthesiologist Coding
[2021-05-02] MEDS ORDERED: MIDAZOLAM HCL 1 MG/ML 2ML VIAL ONE (13:24)
--- NOTE | 2021-05-02 15:34 | Anesthesiology Progress Note ---
Date of Service May 02, 2021 Anesthesia Post Procedure Vital Signs Vital Signs: Temp Pulse Resp BP BP Pulse Ox 05/02/21 15:24 36.7 C 69 16 106/65 98 05/02/21 14:54 36.3 C L 66 16 106/68 98 05/02/21 14:15 73 18 107/62 95 05/02/21 12:59 36.5 C 87 18 113/71 97 05/02/21 07:31 36.5 C 59 L 16 119/75 98 05/01/21 22:33 36.7 C 76 18 102/64 96 05/01/21 16:17 37.2 C 72 16 106/67 98 Pain Intensity Head: Pain Intensity: 5 Transfer of Care Handoff Completed per policy Notes Mental Status: alert / awake / arousable and participated in evaluation Nausea / Vomiting: adequately controlled Pain: adequately controlled Airway Patency, RR, SpO2: stable & adequate BP & HR: stable & adequate Hydration State: stable & adequate Anesthetic Complications: no major complications apparent and Pt Satisfied with anesthetic care Notes: Please see anesthesia record for documentation of the full procedure. Pt tolerated epidural blood patch placement with 2mg of midazolam and without apparent complications. She received a total of 20ml of blood via her patch and was allowed to lay flat for 30 minutes after placement. Pt did report that she had some mild improvement in her headache after placement. ok to return patient to the floor
[2021-05-02] MEDS ORDERED: dexAMETHasone 2 MG in SYRINGE 0 ML IV ONE (15:45)
[2021-05-02] MEDS: MONTELUKAST SODIUM 10 MG TABLET PO SCH (21:03)
[2021-05-02] MEDS: BUTALBITAL/ACETAMIN/CAFFEINE TAB PO PRN (21:03)
[2021-05-02] MEDS: LURASIDONE HCL 40 MG TAB PO SCH (21:04)
[2021-05-03] MEDS: KETOROLAC 30 MG/ML VIAL IV PRN ×2 (01:02→09:05)
[2021-05-03] MEDS: SODIUM CHLORIDE 0.9% 1000ML 1,000 ML IV SCH ×3 (01:30→20:43)
[2021-05-03 05:43] LABS: Hematocrit (blood only) 32.9 % (37-47); Hemoglobin 10.9 g/dL (12.0-16.0); Mean Corpuscular Hemoglobin 30.2 pg (25-34); Mean Corpuscular Hgb Conc 33.1 g/dL (32-36); Mean Corpuscular Volume 91.1 fL (80-100); Mean Platelet Volume 10.3 fL (7.4-10.4); Platelet Count 244 K/uL (130-400); RDW Coefficient of Variation 13.7 % (11.5-14.5); RDW Standard Deviation 45.9 fL (36.4-46.3); Red Blood Count 3.61 M/uL (4.2-5.4); White Blood Count 8.19 K/uL (4.8-10.8)
[2021-05-03 06:02] LABS: BUN Creatinine Ratio 13.8 (10-20); Calcium 7.4 mg/dl (8.5-10.1); Creatinine Clr Calc Pharmacy 60.5 ml/min; Est GFR (African American) 88.8 ml/min; Est GFR (Non-African American) 76.6 ml/min; Potassium 3.4 mmol/L (3.5-5.1)
[2021-05-03] MEDS ORDERED: POTASSIUM CITRATE 10 MEQ TAB PO ONE (08:00)
[2021-05-03] MEDS: buPROPion XL 300 MG TABCR PO SCH (08:42)
[2021-05-03] MEDS: CHOLECALCIFEROL 1,000 UNITS 25 MCG TAB PO SCH (08:43)
[2021-05-03] MEDS: PANCREAZE (LIPASE 10,500U) CAP PO SCH ×3 (08:43→15:59)
[2021-05-03] MEDS: LORATADINE 10 MG TAB PO SCH (08:43)
[2021-05-03] MEDS: VILAZODONE HCL 10 MG PO SCH (08:44)
[2021-05-03] MEDS: FLUTICASONE/VILANTEROL 100/25MCG 14 PUFFS/INHALER INH SCH ×2 (08:45→08:49)
[2021-05-03] MEDS: TOPIRAMATE 100 MG TAB PO SCH ×2 (08:45→20:42)
[2021-05-03] MEDS ORDERED: POLYETHYLENE (MIRALAX) 17 GM PACK PO PRN (12:16)
--- NOTE | 2021-05-03 12:26 | Hospitalist Progress Note ---
Date of Service May 03, 2021 Assessment & Plan (1) Lumbar radicular pain: (2) Post-dural puncture headache: (3) Chronic migraine: (4) BLANKET INSPECTOR demyelination: Patient known to neurologist and has been followed up over the years for essential tremor, migraine, some white matter spots in MRI for which she is being evaluated for possible MS. Had lumbar puncture prior to presentation and then presented with post lumbar puncture headache. S/p Blood patch yesterday Reports some improvement in headache after blood patch Reports feeling better today but not ready to go home Lumbar spine MRI was unremarkable Continue home medications Miralax prn constipation Plan for discharge tomorrow to follow up with Neurology for continued work up and evaluation Admission and Anticipated Discharge Date Admission Date: May 01, 2021 Subjective 51-year-old female with past medical history significant for history of mucinous neoplasm of pancreas, status post distal pancreatectomy, history of asthma moderate persistent, reactive airway disease, nonallergic rhinitis, history of dysphagia, reflux esophagitis, gastroparesis, irritable bowel syndrome, history of esophagitis, GERD, urge incontinence of urine, stress incontinence, headache, tremor due to multiple drugs, migraines, major depression, family history of breast cancer, incisional hernia, bipolar 1 disorder, food allergy who presents with severe headache after Lumbar puncture Patient seen and examined. Reports headache is somewhat improved today Reports constipation No dizziness Reported lower extremity numbness and weakness this morning when she was in the toilet Review of Systems Review of Systems: All systems reviewed & are unremarkable except as noted in Subjective Physical Exam Constitutional: + well hydrated; no acute distress Eyes: PERRL, conjunctivae normal, anicteric sclerae ENMT: external ear and nose normal, oropharynx normal Respiratory: normal respiratory effort, lungs clear to auscultation Cardiovascular: RRR, no murmur, no edema Gastrointestinal (Abdomen): normal bowel sounds, soft, nontender, no hepatosplenomegaly Musculoskeletal: no cyanosis or clubbing, extremities motor strength 5/5 Neurologic: PERRL, EOMI, accommodation nl, no face palsy, no dysarthria Psychiatric: Orientation: alert and oriented x 3 Results & Data Results & Data ([facility]) Vital Signs (Past 12 Hours) Vital Signs Temp Pulse Resp BP BP Pulse Ox 05/03/21 07:46 36.8 C 75 16 96/60 L 96 05/03/21 03:55 36.9 C 65 14 103/57 L 97 Laboratory Results Abnormal lab results 05/03/21 05/03/21 Range/Units 05:36 05:36 RBC 3.61 L (4.2-5.4) M/uL Hgb 10.9 L (12.0-16.0) g/dL Hct 32.9 L (37-47) % Potassium 3.4 L (3.5-5.1) mmol/L Chloride 117 H (98-107) mmol/L Calcium 7.4 L (8.5-10.1) mg/dl
[2021-05-03] MEDS ORDERED: DICYCLOMINE HCL 10 MG CAP PO PRN (18:35)
[2021-05-03] MEDS: MONTELUKAST SODIUM 10 MG TABLET PO SCH (20:42)
[2021-05-03] MEDS: LURASIDONE HCL 40 MG TAB PO SCH (20:42)
[2021-05-04] MEDS: KETOROLAC 30 MG/ML VIAL IV PRN (02:38)
[2021-05-04] MEDS: SODIUM CHLORIDE 0.9% 1000ML 1,000 ML IV SCH (05:31)
[2021-05-04 07:00] LABS: Hematocrit (blood only) 33.7 % (37-47); Hemoglobin 10.8 g/dL (12.0-16.0); Mean Corpuscular Hemoglobin 29.8 pg (25-34); Mean Corpuscular Volume 93.1 fL (80-100); Mean Platelet Volume 10.5 fL (7.4-10.4); Platelet Count 248 K/uL (130-400); RDW Coefficient of Variation 13.9 % (11.5-14.5); RDW Standard Deviation 47.7 fL (36.4-46.3); Red Blood Count 3.62 M/uL (4.2-5.4); White Blood Count 7.09 K/uL (4.8-10.8)
[2021-05-04] MEDS: PANCREAZE (LIPASE 10,500U) CAP PO SCH ×2 (07:10→11:33)
[2021-05-04 07:16] LABS: BUN Creatinine Ratio 11.3 (10-20); Calcium 8.2 mg/dl (8.5-10.1); Creatinine Clr Calc Pharmacy 63.4 ml/min; Est GFR (African American) 93.9 ml/min; Potassium 3.4 mmol/L (3.5-5.1)
[2021-05-04] MEDS: BUTALBITAL/ACETAMIN/CAFFEINE TAB PO PRN (09:33)
[2021-05-04] MEDS: TOPIRAMATE 100 MG TAB PO SCH (09:34)
[2021-05-04] MEDS: VILAZODONE HCL 10 MG PO SCH (09:34)
[2021-05-04] MEDS: buPROPion XL 300 MG TABCR PO SCH (09:35)
[2021-05-04] MEDS: CHOLECALCIFEROL 1,000 UNITS 25 MCG TAB PO SCH (09:35)
[2021-05-04] MEDS: LORATADINE 10 MG TAB PO SCH (09:36)
--- NOTE | 2021-05-04 11:14 | Discharge Summary ---
Date of Service May 04, 2021 Admission HPI Per Admitting Provider This is a 51-year-old female with past medical history significant for history of mucinous neoplasm of pancreas, status post distal pancreatectomy, history of asthma moderate persistent, reactive airway disease, nonallergic rhinitis, history of dysphagia, reflux esophagitis, gastroparesis, irritable bowel syndrome, history of esophagitis, GERD, urge incontinence of urine, stress incontinence, headache, tremor due to multiple drugs, migraines, major depression, family history of breast cancer, incisional hernia, bipolar 1 disorder, food allergy. Lives alone, presents with severe headache. The patient was having migraines. The patient was worked up for MS by neurology and yesterday she had a lumbar puncture. At that time, she noticed some headache, but on going home the headache got severe and she came to the ER. Seen by anesthesia, recommended fluids and pain control and they want to get neurology clearance for doing any blood patch. Currently, the patient's pain is severe, lights bothering her. Has nausea, vomited a few times. Pain all over the head. Denies any blurred visions. Some ringing noise in the ears. No runny nose, no sore throat, no cough, no fever, no chills, no chest pain, no shortness of breath. No abdominal pain. Normal bowel and bladder movements. No swelling in the legs, ambulating okay. Admission Exam Per Admitting Provider GENERAL: The patient is thin and frail, not in acute distress. VITAL SIGNS: Temperature 36.6, pulse 56, respiratory rate 16, blood pressure 106/71, oxygen 97% on room air. HEENT: Pupils equal, round, and reactive to light. Oral mucosa moist. NECK: No JVD, no neck masses. CARDIOVASCULAR: S1, S2 heard, regular rate and rhythm, no murmur, no gallop. RESPIRATORY SYSTEM: Normal AP diameter. No accessory muscle use. No wheezing, no crackles. ABDOMEN: Soft, bowel sounds present, nontender. No distention. CENTRAL NERVOUS SYSTEM: Cranial nerves II-XII grossly intact, nonfocal. EXTREMITIES: No edema, no erythema. 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 HOLE DRILLER demyelination: Discharge Exam Constitutional + well hydrated; no acute distress Eyes PERRL, conjunctivae normal, anicteric sclerae ENMT external ear and nose normal, oropharynx normal Respiratory normal respiratory effort, lungs clear to auscultation Cardiovascular RRR, no murmur, no edema Gastrointestinal (Abdomen) normal bowel sounds, soft, nontender, no hepatosplenomegaly Musculoskeletal no cyanosis or clubbing, extremities motor strength 5/5 Neurologic PERRL, EOMI, accommodation nl, no face palsy, no dysarthria Psychiatric Orientation: alert and oriented x 3 Discharge Data Allergies Allergy/AdvReac Type Severity Reaction Status Date / Time chicken derived Allergy Severe THROAT Verified 04/30/21 22:36 SWELLS ciprofloxacin Allergy Severe SWELLS UP Verified 04/30/21 22:36 THROAT AND CAN'T BREATHE egg Allergy Severe THROAT Verified 04/30/21 22:36 SWELLS hornet venom Allergy Severe SWELLS Verified 04/30/21 22:36 THROAT oxycodone Allergy Severe airway Verified 04/30/21 22:36 edema Poultry Allergy Severe "[place]" Verified 04/30/21 22:36 -- Throat swelling Fish Containing Products Allergy Intermediate Throat Verified 04/30/21 22:36 swells sesame seed Allergy Intermediate "Sesame" - Verified 04/30/21 22:36 + ALLERGY TEST sumatriptan Allergy Intermediate throat Verified 04/30/21 22:36 swelling sunflower seed Allergy Intermediate + ALLERGY Verified 04/30/21 22:36 TEST Quinolones Allergy Mild ITCHY RASH Verified 04/30/21 22:36 ON HEAD,CHEST,ARMS DURING IV INFUSION acetaminophen [From Percocet] Allergy Unknown Verified 04/30/21 22:36 iodine Allergy Unknown Verified 04/30/21 22:36 salicylates Allergy Unknown Verified 04/30/21 22:36 diphenhydramine AdvReac Intermediate IV Verified 04/30/21 22:36 GIVEN-"FELT DOPED UP AFTER INJECTED" aspirin AdvReac Mild UPSET Verified 04/30/21 22:36 STOMACH morphine AdvReac Mild Drowsy Verified 04/30/21 22:36 orange juice AdvReac Mild Gastrointestinal Verified 04/30/21 22:36 Upset Consultations 05/01/21 00:35 ED Decision to Admit Stat 05/01/21 08:00 Consult Neurology Routine 05/01/21 12:28 Consult Anesthesiology Routine Procedures Performed Operation Date: 05/02/21 12:45 <No data on this case meets the specified criteria> Ordered Studies 05/01/21 09:36 MR lumbar spine wo con Urgent The marine fireman localizer images demonstrate no gross extraspinal abnormality. Signal within the imaged thoracic spinal cord and cauda equina is unremarkable. Study is motion degraded. No acute fracture, subluxation, bone marrow or soft tissue edema. No significant discogenic degeneration, central canal or neural foraminal narrowing. No endplate erosions. T11 and L1 vertebral body hemangiomata are noted measuring 1.3 and 0.7 cm respectively. T12-L1: No central canal or neural foraminal stenosis. L1-L2: No central canal or neural foraminal stenosis. L2-L3: No central canal or neural foraminal stenosis. L3-L4: No central canal or neural foraminal stenosis. L4-L5: No central canal or neural foraminal stenosis. L5-S1: No central canal or neural foraminal stenosis. IMPRESSION: Unremarkable MRI of the lumbar spine. 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 Had lumbar puncture prior to presentation and then presented with post lumbar puncture headache. 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 Cortes You came to the hospital with severe headache following lumbar puncture. You were evaluated to manage with your neurologist. You also had a blood patch done. Please continue medication and follow-up with your neurologist. It was a pleasure taking care of you Pending Studies at Discharge: No Stand-Alone Forms: My [facility], Smoking Cessation Medications and DC Order Prescriptions: Continued topiramate [Topamax] 200 mg tablet 200 mg PO BID 30 Days Qty: 60 RF: 5 ipratropium-albuterol 0.5 mg-3 mg(2.5 mg base)/3 mL Solution For Nebulization 3 ml INHALATION Q8H PRN (Reason: SHORT OF BREATH) RF: 0 promethazine 25 mg Tablet 25 mg PO Q6H PRN (Reason: Nausea) RF: 0 epinephrine [EpiPen] 0.3 mg/0.3 mL Auto-Injector 0.3 mg IM Q3H PRN (Reason: Allergic Reaction) RF: 0 lactulose 10 gram/15 mL Solution 30 ml PO TID PRN (Reason: Constipation) RF: 0 cholecalciferol (vitamin D3) [Vitamin D3] 5,000 unit Tablet 5,000 unit PO QAM RF: 0 Dulera 200-5 mcg/actuation Hfa Aerosol Inhaler 2 puff INHALATION Q12H RF: 0 bupropion HCl [Wellbutrin XL] 300 mg tablet extended release 24 hr 300 mg PO QAM RF: 0 montelukast [Singulair] 10 mg Tablet 10 mg PO PM RF: 0 loratadine [Claritin] 10 mg Tablet 10 mg PO DAILY RF: 0 Latuda 40 mg tablet 40 mg PO QPM RF: 0 naratriptan 2.5 mg tablet 2.5 mg PO DAILY PRN (Reason: Migraine Headache) RF: 0 Viibryd 10 mg tablet 10 mg PO DAILY RF: 0 albuterol sulfate 90 mcg/actuation HFA aerosol inhaler 2 puff INHALATION QID PRN (Reason: tightness/sob) RF: 0 Discharge Orders: Discharge Order (Routine); Ordered 05/04/21 Ordered By: Cynthia Lerner/Other Patient Handouts: Self-Care for Headaches, ED Headache Post Spinal Tap W Patch Admission Data Admit Date/Time: 05/03/21 16:26 Attending Provider: Cynthia Lagos I. Admit Provider: Han Arevalo Primary Care Provider: Miesha Robison Other Providers: Han Arevalo ; Js Reyes Michael J Other Interventions: Discharge Summary Assessment (RN) Last Done: 05/04/21 11:43
== END 2021-05-04 14:18 | disposition home or self-care (01) | DRG 103 ==
LOC: ED 19:07 → 3W 19:07

== ENCOUNTER 2023-05-15 13:42 | Inpatient (IN) ==
--- NOTE | 2023-05-15 13:54 | Emergency Department Note ---
Impression & Plan Atypical chest pain, Bilateral leg cramps ED Provider Note NAME: ASHLYN ABARCA AGE: 53 SEX: F : 1970 ARRIVES VIA: Walk-In INFORMANT: Patient, ED PROVIDER(S): Maikel Bellamy MD CHIEF COMPLAINT: Chest pain MEDICAL DECISION MAKING: Patient presents due to concern for chest pain. IV was established blood was obtained. The patient was ordered aspirin nitro and IV fluids. Patient did receive adjuvant aspirin nitro and IV fluids. The patient also did receive some fentanyl. EKG did show some depressions inferiorly but I was able to obtain an outpatient EKG through [facility] system this appears to be chronic. Patient's blood work shows a normal white count H&H and platelet count with normal kidney function and electrolytes. Troponin is not elevated. Repeat troponin was added. TSH normal. Heart score of 5 with concerning story so I did speak with the on-call hospital service Danae Soliz PA-C and the patient was admitted by Dr. Jeong. Prior /Outside records reviewed: Did review a recent EGD that was performed by Dr. Burrell in February 2023. Patient was noted to have eosinophilic esophagitis with associated biopsy and did have dilatation. Normal stomach and normal duodenum which were also biopsied. I did review a neurology visit for chronic migraine from [facility] in February 2022. The patient does have a known history of A P MECHANIC demyelination prior spinal fluid testing was negative for MS. White matter lesions may be from chronic migraine dangerous VID. I did review her discharge summary from Dr. Lagos from April 2021. 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 6 gastroparesis GERD tremor migraines depression bipolar 1 who presents with concern for chest pains and shortness of breath. Differential diagnosis: Cardiac ischemia, aortic dissection, pulmonary embolism, pneumothorax, pneumonia, pericarditis, myocarditis, esophageal rupture, GERD, cholecystitis, pancreatitis, musculoskeletal, as well as other pathologies. Diagnostics, as interpreted by me: ECG: Motion artifact noted, normal sinus rhythm, rate of 82, normal intervals, left axis deviation, slight ST depressions inferiorly no ST elevations. Cardiac monitoring: An order was placed for continuous cardiac monitoring. The monitor shows a rate of 82 with sinus rhythm. Patient was placed on pulse oximetry Medical decision rules: Heart score, Wells score Imaging studies: See below HPI: patient presents due to concern for chest pains. The patient states that she developed chest pain around 2 AM this morning that has been fairly constant left-sided and achy does radiate to her arm and jaw. Patient does not complain exertional symptoms nausea vomiting or diaphoresis. No known history of heart disease. Patient does have a known history of asthma and this does not feel similar. No abdominal pain leg swelling or calf pain. No recent surgeries procedures or hospitalizations no recent prolonged car plane travel. PAST MEDICAL HISTORY: See Below PAST SURGICAL HISTORY: See Below SOCIAL HISTORY: See Below HOME MEDICATIONS: See Below ALLERGIES: See Below VITALS: See Below PHYSICAL EXAMINATION: GENERAL: NAD, wearing glasses, non-toxic. Mildly tremulous. EYE EXAM: Normal conjunctiva. PERRL, no anisocoria and EOM's grossly intact w/o pain. NECK: Supple, no nuchal rigidity, no adenopathy, non-tender. No signs of meningismus. FROM of the neck with good chin to chest and neck extension. No stridor. LUNGS: Clear to auscultation. Normal chest wall mechanics. HEART: NSR, no MRG. ABDOMEN: Abdomen soft, non-tender, no masses, no rebound or guarding. BACK: No CVA TTP. SKIN: No rashes and no bruising. UPPER EXTREMITIES: Upper extremities are grossly normal. LOWER EXTREMITIES: Grossly normal, no edema. Negative Homans' sign bilaterally. NEURO EXAM: A&O x3, cranial nerves II-XII grossly intact, normal speech, moves all 4 extremities. Past Med/Surg History Medical History Anemia Anxiety Asthma inhalers/nebulizer prn Attention deficit disorder (ADD) Bipolar disorder Chronic obstructive pulmonary disease Cyst of pancreas (~11/2019) hx, surgery to be removed 2019 Depression Dysphagia frequent and has had dilation on various occasion Eosinophilic esophagitis Fibromyalgia Gastroparesis History of COVID-19 10/2021>resolved. 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 SHREE rich, 09/18/22 History of kidney stones History of lumbar puncture IBS (irritable bowel syndrome) Migraine topamax Multiple allergies Post traumatic stress disorder Sleep apnea CPAP (VERBALIZED HAS NOT BEEN USING) Thyroid disease "borderline" no medications Surgical History H/O exploratory laparotomy H/O inguinal hernia repair H/O splenectomy History of appendectomy History of section X 2 History of cholecystectomy History of colonoscopy History of cystoscopy History of dilatation and curettage X 3 History of esophagogastroduodenoscopy (EGD) last 11/2022 @ [facility] History of herniorrhaphy umbilical hernia repair History of hysterectomy JAG with BSO History of lithotripsy History of tooth extraction Hx of colonoscopy Family History Father Heart disease Other No family history of adverse response to anesthesia Social History Smoking Status: Never smoker Second Hand Exposure: No; Do You Dip or Chew Tobacco: No; Hx Alcohol Use: No Hx Substance Use: No Preferred Language: Welsh Communication Ability: Effective Cloud Developer Required: No Beliefs That Will Affect Care: None Current Living Situation: Alone current occupational status: unemployed Other Information That Helps Us Care for You: No Feels Safe at Home: Yes Assistive Devices: Denture - Upper, Denture - Lower and Glasses Allergies Allergies Allergy/AdvReac Type Severity Reaction Status Date / Time chicken derived Allergy Severe THROAT Verified 03/17/23 10:41 SWELLS ciprofloxacin Allergy Severe SWELLS UP Verified 03/17/23 10:41 THROAT AND CAN'T BREATHE egg Allergy Severe THROAT Verified 03/17/23 10:41 SWELLS hornet venom Allergy Severe SWELLS Verified 03/17/23 10:41 THROAT oxycodone Allergy Severe airway Verified 03/17/23 10:41 edema Poultry Allergy Severe "[place]" Verified 03/17/23 10:41 -- Throat swelling Fish Containing Products Allergy Intermediate Throat Verified 03/17/23 10:41 swells sesame seed Allergy Intermediate "Sesame" - Verified 03/17/23 10:41 + ALLERGY TEST sumatriptan Allergy Intermediate throat Verified 03/17/23 10:41 swelling sunflower seed Allergy Intermediate + ALLERGY Verified 03/17/23 10:41 TEST Quinolones Allergy Mild ITCHY RASH Verified 03/17/23 10:41 ON HEAD,CHEST,ARMS DURING IV INFUSION diphenhydramine AdvReac Intermediate IV Verified 03/17/23 10:41 GIVEN-"FELT DOPED UP AFTER INJECTED" aspirin AdvReac Mild UPSET Verified 03/17/23 10:41 STOMACH morphine AdvReac Mild Drowsy Verified 03/17/23 10:41 orange juice AdvReac Mild Gastrointestinal Verified 03/17/23 10:41 Upset Home Meds Home Medications Medication Instructions Recorded Confirmed cholecalciferol (vitamin D3) 125 5,000 unit PO QAM 02/27/19 05/15/23 mcg (5,000 unit) tablet (Vitamin D3) epinephrine 0.3 mg/0.3 mL 0.3 mg IM Q3H PRN Allergic Reaction 02/27/19 05/15/23 injection, auto-injector (EpiPen) ipratropium 0.5 mg-albuterol 3 mg 3 ml inhalation Q8H PRN SHORT OF 02/27/19 05/15/23 (2.5 mg base)/3 mL nebulization BREATH soln mometasone-formoterol HFA 200 2 puff inhalation Q12H 02/27/19 05/15/23 mcg-5 mcg/actuation aerosol inhaler (Dulera) promethazine 25 mg tablet 25 mg PO Q6H PRN Nausea 02/27/19 05/15/23 bupropion HCl 300 mg 24 hr tablet, 300 mg PO QAM 10/06/20 05/15/23 extended release (Wellbutrin XL) loratadine 10 mg tablet (Claritin) 10 mg PO QAM 04/29/21 05/15/23 montelukast 10 mg tablet 10 mg PO HS 04/29/21 05/15/23 (Singulair) albuterol sulfate 90 mcg/actuation 2 puff inhalation QID PRN 04/30/21 05/15/23 aerosol inhaler tightness/sob lorazepam 0.5 mg tablet 0.5 mg PO UD PRN anxiety attack 08/13/21 05/15/23 famotidine 20 mg tablet (Pepcid) 20 mg PO DAILY 03/16/23 05/15/23 metoclopramide HCl 5 mg tablet 5 mg PO PM 05/15/23 05/15/23 vilazodone 20 mg tablet 20 mg PO DAILY 05/15/23 05/15/23 Previous Rx's Medication Instructions Recorded dihydroergotamine 0.5 mg/pump act. 1 spray intranasal .COMPLEX PRN 12/02/22 (4 mg/mL) nasal spray (Migranal) migraines #8 mL topiramate 200 mg tablet (Topamax) 200 mg PO BID 30 days #60 tabs 12/02/22 eptinezumab-jjmr 100 mg/mL 300 mg (3 mL) IV UD #3 mL 12/15/22 intravenous solution (Vyepti) Results & Data (ED) Vital Signs Vital Signs - 24 hr 05/15/23 13:48 05/15/23 14:39 05/15/23 16:03 Temperature 36.5 C Temperature Source Temporal Artery Scan Pulse Rate 79 66 Pulse Rate from SpO2 Sensor Respiratory Rate 20 Blood Pressure 146/68 H Blood Pressure Mean 94 Pulse Oximetry 100 100 Oxygen Delivery Method Room Air Room Air Sepsis Recent Fever Within 48 Hours No Sepsis New/Unexplained Change in Mental Status N/A Sepsis Action Taken by Nursing No Action Required 05/15/23 14:38 05/15/23 15:00 05/15/23 16:00 Temperature Temperature Source Pulse Rate 69 77 68 Pulse Rate from SpO2 Sensor 77 68 Respiratory Rate 19 20 21 Blood Pressure 115/77 114/84 126/87 Blood Pressure Mean 89 94 100 Pulse Oximetry 99 99 Oxygen Delivery Method Sepsis Recent Fever Within 48 Hours Sepsis New/Unexplained Change in Mental Status Sepsis Action Taken by [facility] Medications Current Medication List: was personally reviewed by me Laboratory Data Attestation: I reviewed the patient's lab results. 05/15/23 14:23 05/16/23 05:45 Lab Results 05/15/23 05/15/23 05/15/23 Range/Units 14:23 14:23 14:23 WBC 5.72 (4.8-10.8) K/ul RBC 4.59 (4.20-5.40) M/uL Hgb 13.5 (12.0-16.0) g/dl Hct 41.7 (37.0-47.0) % MCV 90.8 (80.0-100.0) fL MCH 29.4 (25.0-34.0) pg MCHC 32.4 (32.0-36.0) g/dL RDW Std Deviation 46.1 (36.4-46.3) fL RDW Coeff of [place] 13.7 (11.5-14.5) % Plt Count 306 (130-400) K/uL MPV 10.7 (9.4-12.4) fL Immature Gran % (Auto) 0.2 % Neut % (Auto) 33.2 % Lymph % (Auto) 38.3 % [place] % (Auto) 7.3 % Eos % (Auto) 17.5 % Baso % (Auto) 3.5 % Neut # (Auto) 1.90 (1.40-6.50) K/uL Lymph # (Auto) 2.19 (1.2-3.4) K/uL [place] # (Auto) 0.42 (0.11-0.59) K/uL Eos # (Auto) 1.00 H (0-0.50) K/uL Baso # (Auto) 0.20 (0-0.2) K/uL Immature Gran # (Auto) 0.01 (0.01-0.20) K/uL PT 11.0 (9.0-12.0) Seconds INR 1.0 (0.9-1.1) APTT 26.6 (21.0-31.0) Seconds PTT Ratio 0.9 Sodium 140 (136-145) mmol/L Potassium 3.9 (3.5-5.1) mmol/L Chloride 107 (98-107) mmol/L Carbon Dioxide 28 (21-32) mmol/L Anion Gap 5 (3-11) BUN 12 (6-23) mg/dl Creatinine 1.07 (0.6-1.2) mg/dl Est Cr Clr Drug Dosing 50.1 ml/min Est GFR ( Amer) 69.1 ml/min Est GFR (Non-Af Amer) 59.6 ml/min BUN/Creatinine Ratio 11.2 (10-20) Glucose 85 (70-99(Fasting)) mg/dl Calcium 9.6 (8.6-10.3) mg/dl Magnesium 2.0 (1.7-2.4) mg/dl Total Bilirubin 0.4 (0.2-1.0) mg/dl AST 19 (13-39) U/L ALT 15 (7-52) U/L Alkaline Phosphatase 89 (34-104) U/L Troponin I High Sens 2.7 (0-14) pg/ml Total Protein 7.3 (6.0-8.3) gm/dl Albumin 4.1 (3.4-5.0) gm/dl Globulin 3.2 (2.5-4.0) gm/dl Albumin/Globulin Ratio 1.3 (0.9-2) Lipase 37 (11-82) U/L TSH (0.300-4.500) uIu/ml 05/15/23 05/15/23 Range/Units 14:23 15:45 WBC (4.8-10.8) K/ul RBC (4.20-5.40) M/uL Hgb (12.0-16.0) g/dl Hct (37.0-47.0) % MCV (80.0-100.0) fL MCH (25.0-34.0) pg MCHC (32.0-36.0) g/dL RDW Std Deviation (36.4-46.3) fL RDW Coeff of [place] (11.5-14.5) % Plt Count (130-400) K/uL MPV (9.4-12.4) fL Immature Gran % (Auto) % Neut % (Auto) % Lymph % (Auto) % [place] % (Auto) % Eos % (Auto) % Baso % (Auto) % Neut # (Auto) (1.40-6.50) K/uL Lymph # (Auto) (1.2-3.4) K/uL [place] # (Auto) (0.11-0.59) K/uL Eos # (Auto) (0-0.50) K/uL Baso # (Auto) (0-0.2) K/uL Immature Gran # (Auto) (0.01-0.20) K/uL PT (9.0-12.0) Seconds INR (0.9-1.1) APTT (21.0-31.0) Seconds PTT Ratio Sodium (136-145) mmol/L Potassium (3.5-5.1) mmol/L Chloride (98-107) mmol/L Carbon Dioxide (21-32) mmol/L Anion Gap (3-11) BUN (6-23) mg/dl Creatinine (0.6-1.2) mg/dl Est Cr Clr Drug Dosing ml/min Est GFR ( Amer) ml/min Est GFR (Non-Af Amer) ml/min BUN/Creatinine Ratio (10-20) Glucose (70-99(Fasting)) mg/dl Calcium (8.6-10.3) mg/dl Magnesium (1.7-2.4) mg/dl Total Bilirubin (0.2-1.0) mg/dl AST (13-39) U/L ALT (7-52) U/L Alkaline Phosphatase (34-104) U/L Troponin I High Sens 2.5 (0-14) pg/ml Total Protein (6.0-8.3) gm/dl Albumin (3.4-5.0) gm/dl Globulin (2.5-4.0) gm/dl Albumin/Globulin Ratio (0.9-2) Lipase (11-82) U/L TSH 3.616 (0.300-4.500) uIu/ml Administered Medications Acetaminophen (Acetaminophen 325 Mg Tab) 325 mg PO Q6H PRN PRN Reason: Mild Pain/Fever Stop: 06/14/23 21:39 Last Admin: 05/16/23 04:14 Dose: 325 mg Documented By: GINO Enoxaparin Sodium (Enoxaparin Inj 40 Mg/0.4 Ml Syr) 40 mg SQ Q24H ANSELMO Stop: 06/14/23 21:59 Last Admin: 05/15/23 21:07 Dose: 40 mg Documented By: GINO Ibuprofen (Ibuprofen 200 Mg Tab) 200 mg PO Q6H PRN PRN Reason: Mild Pain (Scale 1, 2, 3) Stop: 06/14/23 22:22 Last Admin: 05/15/23 23:00 Dose: 200 mg Documented By: GINO Miscellaneous (Viibryd 20mg---Order Awaiting Action) 1 each N/A QS [facility] Stop: 06/15/23 00:00 Last Admin: 05/15/23 23:53 Dose: Not Given Documented By: GINO Montelukast Sodium (Montelukast Sodium 10 Mg Tablet) 10 mg PO HS [facility] Stop: 06/14/23 20:59 Last Admin: 05/15/23 20:29 Dose: 10 mg Documented By: GINO Ondansetron HCl (Ondansetron Inj 2 Mg/Ml 2 Ml Vial) 4 mg IV Q6H PRN PRN Reason: Nausea Stop: 06/14/23 17:44 Last Admin: 05/16/23 00:49 Dose: 4 mg Documented By: GINO Topiramate (Topiramate 100 Mg Tab) 200 mg PO BID ANSELMO Stop: 06/14/23 20:59 Last Admin: 05/15/23 20:29 Dose: 200 mg Documented By: GINO Discontinued Medications Acetaminophen (Acetaminophen 500 Mg Tab) 1,000 mg PO NOW STA Stop: 05/15/23 15:11 Last Admin: 05/15/23 15:17 Dose: 1,000 mg Documented By: NRB Acetaminophen (Acetaminophen 325 Mg Tab) 650 mg PO Q4H PRN PRN Reason: Pain or Fever Stop: 06/14/23 17:44 Last Admin: 05/15/23 20:28 Dose: 650 mg Documented By: GINO Hydrocodone Bitart/Acetaminophen (Hydrocodone/Acetamophen 5/325mg Tab) 1 tab PO QID PRN PRN Reason: Pain Stop: 05/29/23 21:13 Last Admin: 05/15/23 21:27 Dose: 1 tab Documented By: GINO Aspirin (Aspirin Chew 324 Mg) 324 mg PO NOW STA Stop: 05/15/23 14:08 Last Admin: 05/15/23 14:32 Dose: 324 mg Documented By: AUSTIN Diphenhydramine HCl (Diphenhydramine 50 Mg/Ml Vial) 6.25 mg IV NOW STA Stop: 05/15/23 14:20 Last Admin: 05/15/23 16:56 Dose: Not Given Documented By: RSChiara Fentanyl Citrate (Fentanyl Citrate Pf 100 Mcg/2 Ml Vial) 25 mcg IV NOW STA Stop: 05/15/23 15:11 Last Admin: 05/15/23 15:18 Dose: 25 mcg Documented By: NRB Fentanyl Citrate (Fentanyl Citrate Pf 100 Mcg/2 Ml Vial) 25 mcg IV NOW STA Stop: 05/15/23 16:44 Last Admin: 05/15/23 16:56 Dose: Not Given Documented By: RSChiara Sodium Chloride (Nss) 500 mls @ 999 mls/hr IV .Q31M STA Stop: 05/15/23 14:37 Last Infusion: 05/15/23 15:11 Dose: 0 mls/hr Documented By: Admin: 05/15/23 14:36 Dose: 999 mls/hr Documented By: AUSTIN Lidocaine (Lidocaine 5% 1 Patch) 1 patch TD QAM ANSELMO Stop: 06/14/23 16:59 Last Admin: 05/15/23 19:16 Dose: 1 patch Documented By: GINO Nitroglycerin (Nitroglycerin Sl 0.4 Mg/Tab Tab) 0.4 mg SL Q5M PRN PRN Reason: Chest Pain Stop: 06/14/23 14:06 Last Admin: 05/15/23 14:17 Dose: 0.4 mg Documented By: AUSTIN Ondansetron HCl (Ondansetron Inj 2 Mg/Ml 2 Ml Vial) 4 mg IV NOW STA Stop: 05/15/23 14:08 Last Admin: 05/15/23 14:36 Dose: 4 mg Documented By: AUSTIN Imaging Data Radiologist's Impression: Chest X-Ray 05/15/23 14:09 XR chest 1V portable CLINICAL HISTORY: Chest pain, nonspecific TECHNIQUE: Single frontal radiograph of the chest was obtained. Comparison: None available at the time of this dictation. FINDINGS: No lines and tubes are seen. Cardiomegaly is noted. The lungs are clear. No evidence of pleural effusion or pneumothorax. IMPRESSION: No acute chest disease. Cardiomegaly is noted. ACT 112: Negative or not required by law. Electronically signed by: Bruce Radford M.D. 05/15/2023 2:36 PM Discharge Plan Visit Data Chief Complaint: Chest Pain Stated Complaint: SEVERE CHEST PAIN,LEG CRAMP ED Provider: Maikel Bellamy Discharge Problem: Atypical chest pain, Bilateral leg cramps Patient Disposition: Admitted As Inpatient Discharge Instructions Interventions: ED Discharge Assessment Last Done: 05/15/23 17:11
[2023-05-15] MEDS ORDERED: NITROGLYCERIN SL 0.4 MG/TAB TAB SL PRN (14:07)
[2023-05-15] MEDS ORDERED: SODIUM CHLORIDE 0.9% 500 ML IV STA (14:07)
[2023-05-15] MEDS ORDERED: ASPIRIN CHEW 324 MG PO STA (14:07)
[2023-05-15] MEDS ORDERED: ONDANSETRON INJ 2 MG/ML 2 ML VIAL IV STA (14:07)
[2023-05-15] MEDS ORDERED: diphenhydrAMINE 50 MG/ML VIAL IV STA (14:19)
--- NOTE | 2023-05-15 14:37 | XRay Report ---
XR chest 1V portable CLINICAL HISTORY: Chest pain, nonspecific TECHNIQUE: Single frontal radiograph of the chest was obtained. Comparison: None available at the time of this dictation. FINDINGS: No lines and tubes are seen. Cardiomegaly is noted. The lungs are clear. No evidence of pleural effus ion or pneumothorax. IMPRESSION: No acute chest disease. Cardiomegaly is noted. ACT 112: Negative or not required by law. Electronically signed by: Bruce Radford M.D. 05/15/2023 2:36 PM
[2023-05-15 14:56] LABS: Albumin Globulin Ratio 1.3 (0.9-2); Albumin Level 4.1 gm/dl (3.4-5.0); BUN Creatinine Ratio 11.2 (10-20); Bilirubin,Total 0.4 mg/dl (0.2-1.0); Calcium 9.6 mg/dl (8.6-10.3); Creatinine Clr Calc Pharmacy 50.1 ml/min; Est GFR (African American) 69.1 ml/min; Est GFR (Non-African American) 59.6 ml/min; Globulin 3.2 gm/dl (2.5-4.0); Potassium 3.9 mmol/L (3.5-5.1); Total Protein 7.3 gm/dl (6.0-8.3)
[2023-05-15 15:02] LABS: Basophils % (auto) 3.5 %; Eosinophils % (auto) 17.5 %; Hematocrit (blood only) 41.7 % (37.0-47.0); Hemoglobin 13.5 g/dl (12.0-16.0); Immature Granulocytes # (auto) 0.01 K/uL (0.01-0.20); Immature Granulocytes % (auto) 0.2 %; Lymphocytes # (auto) 2.19 K/uL (1.2-3.4); Lymphocytes % (auto) 38.3 %; Mean Corpuscular Hemoglobin 29.4 pg (25.0-34.0); Mean Corpuscular Hgb Conc 32.4 g/dL (32.0-36.0); Mean Corpuscular Volume 90.8 fL (80.0-100.0); Mean Platelet Volume 10.7 fL (9.4-12.4); Monocytes # (auto) 0.42 K/uL (0.11-0.59); Monocytes % (auto) 7.3 %; Neutrophils % (auto) 33.2 %; Platelet Count 306 K/uL (130-400); RDW Coefficient of Variation 13.7 % (11.5-14.5); RDW Standard Deviation 46.1 fL (36.4-46.3); Red Blood Count 4.59 M/uL (4.20-5.40); White Blood Count 5.72 K/ul (4.8-10.8)
[2023-05-15 15:03] LABS: Troponin I High Sensitivity 2.7 pg/ml (0-14)
[2023-05-15] MEDS ORDERED: fentaNYL citrate PF 100 MCG/2 ML VIAL IV STA ×2 (15:10→16:43)
[2023-05-15] MEDS ORDERED: ACETAMINOPHEN 500 MG TAB PO STA (15:10)
[2023-05-15 15:13] LABS: Partial Thromboplastin Ratio 0.9; Partial Thromboplastin Time 26.6 Seconds (21.0-31.0)
--- NOTE | 2023-05-15 16:25 | History & Physical Report ---
Date of Service May 15, 2023 Assessment & Plan (1) Atypical chest pain: Plan This is a 53-year-old female who has a significant past medical history of asthma, reflux esophagitis, gastroparesis, IBS, eosinophilic esophagitis, dysphagia, incontinence, CKD stage III, osteoporosis intolerance to alendronate, history of migraine, bipolar disorder, major depressive disorder who presents to ED secondary to chest pain that started at 1 AM. Atypical Chest pain Palpitations admit to med tele cycle trops, check tsh obtain echocardiogram if trops elevate consult cardiology monitor on tele for any arrhythmia pain reproducible on exam, possible MSK, add lidocaine TD CKD-3 bun/cr stable avoid nephrotoxic agents follows Dr. Hope Eosinophilic esophagitis IBS Gastroparesis follows [facility] on reglan, famotidine she has not yet started reglan so will hold recent EGD 03/19/23 showed persistent esophagitis referred to manager of employee relations Bipolar d/o continue wellbutrin, vilazodone Hx of migraine on topamax and outpt inj q3mo Dvt ppx: SQ Lovenox Dispo: med tele PCP: Miesha Robison FULL CODE Pt was seen and examined in collaboration with Dr. Retana, please see addendum History of Present Illness Chief Complaint: Chest pain starting at 2:00 am. Primary Care Provider: Miesha Robison, DO This is a 53-year-old female who has a significant past medical history of asthma, reflux esophagitis, gastroparesis, IBS, history of eosinophilic esophagitis, dysphagia, incontinence, CKD stage III, history of migraine, bipolar disorder, major depressive disorder who presents to ED secondary to ches t pain that started at 2 AM. 2 weeks ago she felt like her heart wasn't beating appropriately. At approx 2am this morning she thought her heart was going really slow and really fast. She then developed pain that is located substernal/left chest and radiates down her left arm and into her back. Pain goes the whole way into her lower back. She also complains of bilateral leg cramping. She denies hx of RLS. She couldn't sleep all night b/c the whole leg below knee was cramping. She complains of sob that is new. It started this morning with the chest pain/racing. She denies syncope. She denies hx of heart disease or arrhythmia. Chest pain is not improved since coming to the hospital it is about the same. She denies tick bite, rash or recent illness. She does have chronic tremors which she feels is at baseline and she currently denies feeling anxious. She denies similar pain in the past and this is entirely new. She has hx of migraines and she takes an injection every 3 months. Allergies Allergy/AdvReac Type Severity Reaction Status Date / Time chicken derived Allergy Severe THROAT Verified 03/17/23 10:41 SWELLS ciprofloxacin Allergy Severe SWELLS UP Verified 03/17/23 10:41 THROAT AND CAN'T BREATHE egg Allergy Severe THROAT Verified 03/17/23 10:41 SWELLS hornet venom Allergy Severe SWELLS Verified 03/17/23 10:41 THROAT oxycodone Allergy Severe airway Verified 03/17/23 10:41 edema Poultry Allergy Severe "[place]" Verified 03/17/23 10:41 -- Throat swelling Fish Containing Products Allergy Intermediate Throat Verified 03/17/23 10:41 swells sesame seed Allergy Intermediate "Sesame" - Verified 03/17/23 10:41 + ALLERGY TEST sumatriptan Allergy Intermediate throat Verified 03/17/23 10:41 swelling sunflower seed Allergy Intermediate + ALLERGY Verified 03/17/23 10:41 TEST Quinolones Allergy Mild ITCHY RASH Verified 03/17/23 10:41 ON HEAD,CHEST,ARMS DURING IV INFUSION diphenhydramine AdvReac Intermediate IV Verified 03/17/23 10:41 GIVEN-"FELT DOPED UP AFTER INJECTED" aspirin AdvReac Mild UPSET Verified 03/17/23 10:41 STOMACH morphine AdvReac Mild Drowsy Verified 03/17/23 10:41 orange juice AdvReac Mild Gastrointestinal Verified 03/17/23 10:41 Upset Home Medications Medication Instructions Recorded Confirmed Type cholecalciferol (vitamin D3) 125 5,000 unit PO QAM 02/27/19 05/15/23 History mcg (5,000 unit) tablet (Vitamin D3) epinephrine 0.3 mg/0.3 mL 0.3 mg IM Q3H PRN Allergic Reaction 02/27/19 05/15/23 History injection, auto-injector (EpiPen) ipratropium 0.5 mg-albuterol 3 mg 3 ml inhalation Q8H PRN SHORT OF 02/27/19 05/15/23 History (2.5 mg base)/3 mL nebulization BREATH soln mometasone-formoterol HFA 200 2 puff inhalation Q12H 02/27/19 05/15/23 History mcg-5 mcg/actuation aerosol inhaler (Dulera) promethazine 25 mg tablet 25 mg PO Q6H PRN Nausea 02/27/19 05/15/23 History bupropion HCl 300 mg 24 hr tablet, 300 mg PO QAM 10/06/20 05/15/23 History extended release (Wellbutrin XL) loratadine 10 mg tablet (Claritin) 10 mg PO QAM 04/29/21 05/15/23 History montelukast 10 mg tablet 10 mg PO HS 04/29/21 05/15/23 History (Singulair) albuterol sulfate 90 mcg/actuation 2 puff inhalation QID PRN 04/30/21 05/15/23 History aerosol inhaler tightness/sob lorazepam 0.5 mg tablet 0.5 mg PO UD PRN anxiety attack 08/13/21 05/15/23 History dihydroergotamine 0.5 mg/pump act. 1 spray intranasal .COMPLEX PRN 12/02/22 05/15/23 Rx (4 mg/mL) nasal spray (Migranal) migraines #8 mL topiramate 200 mg tablet (Topamax) 200 mg PO BID 30 days #60 tabs 12/02/22 05/15/23 Rx eptinezumab-jjmr 100 mg/mL 300 mg (3 mL) IV UD #3 mL 12/15/22 05/15/23 Rx intravenous solution (Vyepti) famotidine 20 mg tablet (Pepcid) 20 mg PO DAILY 03/16/23 05/15/23 History metoclopramide HCl 5 mg tablet 5 mg PO PM 05/15/23 05/15/23 History vilazodone 20 mg tablet 20 mg PO DAILY 05/15/23 05/15/23 History Past Med/Surg History Medical History Anemia Anxiety Asthma inhalers/nebulizer prn Attention deficit disorder (ADD) Bipolar disorder Chronic obstructive pulmonary disease Cyst of pancreas (~11/2019) hx, surgery to be removed 2019 Depression Dysphagia frequent and has had dilation on various occasion Eosinophilic esophagitis Fibromyalgia Gastroparesis History of COVID-19 10/2021>resolved. History of kidney problems "abnormal levels in my bloodwork, recommended to see flour blender" ; f/u flour blender SHREE elliott rich, 09/18/22 History of kidney stones History of lumbar puncture IBS (irritable bowel syndrome) Migraine topamax Multiple allergies Post traumatic stress disorder Sleep apnea CPAP (VERBALIZED HAS NOT BEEN USING) Thyroid disease "borderline" no medications Surgical History H/O exploratory laparotomy H/O inguinal hernia repair H/O splenectomy History of appendectomy History of section X 2 History of cholecystectomy History of colonoscopy History of cystoscopy History of dilatation and curettage X 3 History of esophagogastroduodenoscopy (EGD) last 11/2022 @ [facility] History of herniorrhaphy umbilical hernia repair History of hysterectomy JAG with BSO History of lithotripsy History of tooth extraction Hx of colonoscopy Family History Father Heart disease Other No family history of adverse response to anesthesia Social History Smoking Status: Never smoker Second Hand Exposure: No; Do You Dip or Chew Tobacco: No; Hx Alcohol Use: No Hx Substance Use: No Preferred Language: Beninese Communication Ability: Effective Mental Health Unit Lead Psychologist Required: No Beliefs That Will Affect Care: None Current Living Situation: Alone current occupational status: unemployed Feels Safe at Home: Yes Assistive Devices: Denture - Upper, Denture - Lower and Glasses Review of Systems Review of Systems: All systems reviewed & are unremarkable except as noted in HPI & below Physical Exam Physical Exam: please refer to Dr. Retana addendum for physical exam findings Results & Data Results & Data Vital Signs (Past 12 Hours) Vital Signs Temp Pulse Resp BP Pulse Ox O2 Del Method 05/15/23 16:03 66 05/15/23 14:39 100 Room Air 05/15/23 13:48 36.5 C 79 20 146/68 H 100 Room Air Diagnostic Findings Chest X-Ray 06/24/23 14:09 XR chest 1V portable CLINICAL HISTORY: Chest pain, nonspecific TECHNIQUE: Single frontal radiograph of the chest was obtained. Comparison: None available at the time of this dictation. FINDINGS: No lines and tubes are seen. Cardiomegaly is noted. The lungs are clear. No evidence of pleural effusion or pneumothorax. IMPRESSION: No acute chest disease. Cardiomegaly is noted. ACT 112: Negative or not required by law. Electronically signed by: Bruce Radford M.D. 05/15/2023 2:36 PM Medications Administered Medication List Nitroglycerin (Nitroglycerin Sl 0.4 Mg/Tab Tab) 0.4 mg SL Q5M PRN PRN Reason: Chest Pain Stop: 06/14/23 14:06 Last Admin: 05/15/23 14:17 Dose: 0.4 mg Documented By: NRB Discontinued Medications Acetaminophen (Acetaminophen 500 Mg Tab) 1,000 mg PO NOW STA Stop: 05/15/23 15:11 Last Admin: 05/15/23 15:17 Dose: 1,000 mg Documented By: [place] Aspirin (Aspirin Chew 324 Mg) 324 mg PO NOW STA Stop: 05/15/23 14:08 Last Admin: 05/15/23 14:32 Dose: 324 mg Documented By: NRB Fentanyl Citrate (Fentanyl Citrate Pf 100 Mcg/2 Ml Vial) 25 mcg IV NOW STA Stop: 05/15/23 15:11 Last Admin: 05/15/23 15:18 Dose: 25 mcg Documented By: NRB Sodium Chloride (Nss) 500 mls @ 999 mls/hr IV .Q31M STA Stop: 05/15/23 14:37 Last Infusion: 05/15/23 15:11 Dose: 0 mls/hr Documented By: Admin: 05/15/23 14:36 Dose: 999 mls/hr Documented By: NRB Ondansetron HCl (Ondansetron Inj 2 Mg/Ml 2 Ml Vial) 4 mg IV NOW STA Stop: 05/15/23 14:08 Last Admin: 05/15/23 14:36 Dose: 4 mg Documented By: NRB ECG Rate (beats per minute): 82 Rhythm: normal sinus Additional Comments: Repeat EKG also performed which revealed ventricular rate of 74 bpm, no significant ST or T wave change, T wave inversion noted in lead III COVID-19 Results Results COVID-19 Adm Lab Results: RBC 4.59 M/uL (4.20-5.40) 05/15/23 WBC 5.72 K/ul (4.8-10.8) 05/15/23 Hgb 13.5 g/dl (12.0-16.0) 05/15/23 Hct 41.7 % (37.0-47.0) 05/15/23 Plt Count 306 K/uL (130-400) 05/15/23 Neutrophils (%) (Auto) 33.2 % 05/15/23 Lymphocytes (%) (Auto) 38.3 % 05/15/23 Monocytes # (Auto) 0.42 K/uL (0.11-0.59) 05/15/23 Eosinophils # (Auto) 1.00 K/uL (0-0.50) H 05/15/23 Immature Granulocyte % (Auto) 0.2 % 05/15/23 Neutrophils # (Auto) 1.90 K/uL (1.40-6.50) 05/15/23 Lymphocytes # (Auto) 2.19 K/uL (1.2-3.4) 05/15/23 Monocytes # (Auto) 0.42 K/uL (0.11-0.59) 05/15/23 Eosinophils # (Auto) 1.00 K/uL (0-0.50) H 05/15/23 Basophils # (Auto) 0.20 K/uL (0-0.2) 05/15/23 Immature Granulocyte # (Auto) 0.01 K/uL (0.01-0.20) 3 Na 140 mmol/L (136-145) 05/15/23 K 3.9 mmol/L (3.5-5.1) 05/15/23 Cl 107 mmol/L (98-107) 05/15/23 CO2 28 mmol/L (21-32) 05/15/23 Anion Gap 5 (3-11) 05/15/23 BUN 12 mg/dl (6-23) 05/15/23 Creatinine 1.07 mg/dl (0.6-1.2) 05/15/23 BUN/Creatinine Ratio 11.2 (10-20) 05/15/23 Glucose Level 85 mg/dl (70-99(Fasting)) 05/15/23 Ca 9.6 mg/dl (8.6-10.3) 05/15/23 Total Bilirubin 0.4 mg/dl (0.2-1.0) 05/15/23 AST/SGOT 19 U/L (13-39) 05/15/23 ALT/SGPT 15 U/L (7-52) 05/15/23 Alkaline Phosphatase 89 U/L (34-104) 05/15/23 Total Protein 7.3 gm/dl (6.0-8.3) 05/15/23 Albumin 4.1 gm/dl (3.4-5.0) 05/15/23 Globulin 3.2 gm/dl (2.5-4.0) 05/15/23 Albumin/Globulin Ratio 1.3 (0.9-2) 05/15/23 PTT 26.6 Seconds (21.0-31.0) 05/15/23 INR 1.0 (0.9-1.1) 05/15/23 SARS-CoV-2, RNA, NAAT NEGATIVE (NEGATIVE) 05/15/23 Chest X-Ray 05/15/23 Code Status & VTE Plan VTE Prophylaxis Plan VTE Prophylaxis will be ordered: Yes Supervising Physician Co-Signing Physician Notes Pt is a 53 y/o F with hx of Reactive airway disease, IBS, Migraine, Bipolar disorder, tremor, depression, Gastroparesis, chronic dysphagia admitted for L sided chest pain. PE: NAD, appeared anxious Lungs: CTA, no wheezing or crackles, TTP of the L chest wall (no swelling or skin erythema) Cardiac: normal S1/S2, no murmur Abd: ND, soft, NT MSK: no LE edema Psych: AAOx3, normal affect A/P: Chest pain: -it is slightly reproducible - CXR: no acute finding - EKG: NSR -initial trop is neg -will trend trop, admit to tele and echo - will try topical lidocaine other chronic conditions: plan as above Agree with A/P by Danae Soliz PA-C
[2023-05-15] MEDS ORDERED: LIDOCAINE 5% 1 PATCH TD SCH (17:00)
[2023-05-15] MEDS ORDERED: ALBUTEROL HFA 8 GM INHALER INH PRN (17:45)
[2023-05-15] MEDS ORDERED: POLYETHYLENE (MIRALAX) 17 GM PACK PO PRN (17:45)
[2023-05-15] MEDS ORDERED: ALUMINUM/MAGNESIUM SUSP 30 ML UDC PO PRN (17:45)
[2023-05-15] MEDS ORDERED: LORazepam 0.5 MG TAB PO PRN (17:45)
[2023-05-15] MEDS ORDERED: ACETAMINOPHEN 325 MG TAB PO PRN (17:45)
[2023-05-15] MEDS ORDERED: MAGNESIUM HYDROXIDE SUSP 30 ML UDC PO PRN (17:45)
--- NOTE | 2023-05-15 18:20 | Electrocardiogram Report ---
Test Reason : Blood Pressure : / mmHG Vent. Rate : 082 BPM Atrial Rate : 082 BPM P-R Int : 114 ms QRS Dur : 076 ms QT Int : 350 ms P-R-T Axes : 019 002 -12 degrees QTc Int : 408 ms Normal sinus rhythm Nonspecific ST abnormality Abnormal ECG When compared with ECG of 26-MAY-2018 18:58, Nonspecific T wave abnormality no longer evident in Lateral leads Confirmed by Conor Santos ([id number]) on 05/15/2023 6:20:33 PM Referred By: REFERRED SELF Confirmed By:Conor Santos
--- NOTE | 2023-05-15 18:26 | Electrocardiogram Report ---
Test Reason : Blood Pressure : / mmHG Vent. Rate : 074 BPM Atrial Rate : 074 BPM P-R Int : 124 ms QRS Dur : 076 ms QT Int : 358 ms P-R-T Axes : 012 -16 000 degrees QTc Int : 397 ms Poor data quality, interpretation may be adversely affected Normal sinus rhythm Normal ECG When compared with ECG of 15-MAY-2023 13:51, (unconfirmed) No significant change was found Confirmed by Conor Santos ([id number]) on 05/15/2023 6:25:57 PM Referred By: REFERRED SELF Confirmed By:Conor Santos
[2023-05-15] MEDS: TOPIRAMATE 100 MG TAB PO SCH (20:29)
[2023-05-15] MEDS: MONTELUKAST SODIUM 10 MG TABLET PO SCH (20:29)
[2023-05-15] MEDS: ENOXAPARIN INJ 40 MG/0.4 ML SYR SQ SCH (21:07)
[2023-05-15] MEDS ORDERED: HYDROCODONE/ACETAMOPHEN 5/325MG TAB PO PRN (21:14)
[2023-05-15 22:16] LABS: D Dimer < 190 ug/L FEU (0-500)
[2023-05-15] MEDS ORDERED: IBUPROFEN 200 MG TAB PO PRN (22:23)
[2023-05-16] MEDS: ONDANSETRON INJ 2 MG/ML 2 ML VIAL IV PRN ×2 (00:49→22:52)
[2023-05-16] MEDS: ACETAMINOPHEN 325 MG TAB PO PRN ×2 (04:14→10:02)
[2023-05-16 06:17] LABS: BUN Creatinine Ratio 11.3 (10-20); Calcium 8.8 mg/dl (8.6-10.3); Chol HDL Ratio 3.8 (0-5); Creatinine Clr Calc Pharmacy 47.3 ml/min; Est GFR (African American) 63.4 ml/min; Est GFR (Non-African American) 54.7 ml/min; Magnesium 1.9 mg/dl (1.7-2.4); Potassium 3.8 mmol/L (3.5-5.1)
[2023-05-16] MEDS: FAMOTIDINE 20 MG TAB PO SCH (08:27)
[2023-05-16] MEDS: LORATADINE 10 MG TAB PO SCH (08:27)
[2023-05-16] MEDS: TOPIRAMATE 100 MG TAB PO SCH ×2 (08:27→20:40)
[2023-05-16] MEDS: buPROPion XL 300 MG TABCR PO SCH (08:27)
[2023-05-16] MEDS: CHOLECALCIFEROL 5,000 UNITS 125 MCG TAB PO SCH (08:28)
[2023-05-16] MEDS: FLUTICASONE/VILANTEROL 200/25MCG 14 PUFFS/INHALER INH SCH (08:28)
--- NOTE | 2023-05-16 10:50 | Cardiology Consultation ---
Date of Consultation May 16, 2023 Assessment & Plan (1) Atypical chest pain: Patient referred for evaluation of chest pain greater than 48 hours duration and ongoing at time of examination. Symptoms severe sharp radiating to neck shoulder and down the low back. No other additional features to suggest angina. EKGs without ST segment abnormality. Cardiac enzymes normal. Echocardiogram with normal LV wall motion and function. No pericardial effusion Plan Findings suggest noncardiac source of patient complaints. No indications for acute stress testing the setting of ongoing pain Would seek alternate cause of complaints History of Present Illness Reason for Consultation: Atypical chest pain Requesting Physician: Jovan Em MD Attending Physician: Jovan Em MD History of Present Illness Patient is a 53-year-old female without prior history of cardiac disease with underlying history notable for 1. Asthmatic lung disease 2. Eosinophilic esophagitis with chronic dysphagia 3. Stage IIIa CKD/nephrolithiasis Patient presents this admission seeking ER evaluation after greater than 48 hours of persistent pain left chest neck back and shoulder. Some positional changes. No acute diaphoresis or shortness of breath. EKGs with pain without ST segment abnormality Cardiac enzymes negative No prior history of myocardial infarction angina or congestive heart failure Chronic pain, dysphagia prominent issue No bleeding issues no fevers chills no acute weight loss. Patient non-smoker, modestly active about home no exertional exacerbation above complaint Allergies Allergy/AdvReac Type Severity Reaction Status Date / Time chicken derived Allergy Severe THROAT Verified 03/17/23 10:41 SWELLS ciprofloxacin Allergy Severe SWELLS UP Verified 03/17/23 10:41 THROAT AND CAN'T BREATHE egg Allergy Severe THROAT Verified 03/17/23 10:41 SWELLS hornet venom Allergy Severe SWELLS Verified 03/17/23 10:41 THROAT oxycodone Allergy Severe airway Verified 03/17/23 10:41 edema Poultry Allergy Severe "[place]" Verified 03/17/23 10:41 -- Throat swelling Fish Containing Products Allergy Intermediate Throat Verified 03/17/23 10:41 swells sesame seed Allergy Intermediate "Sesame" - Verified 03/17/23 10:41 + ALLERGY TEST sumatriptan Allergy Intermediate throat Verified 03/17/23 10:41 swelling sunflower seed Allergy Intermediate + ALLERGY Verified 03/17/23 10:41 TEST Quinolones Allergy Mild ITCHY RASH Verified 03/17/23 10:41 ON HEAD,CHEST,ARMS DURING IV INFUSION diphenhydramine AdvReac Intermediate IV Verified 03/17/23 10:41 GIVEN-"FELT DOPED UP AFTER INJECTED" aspirin AdvReac Mild UPSET Verified 03/17/23 10:41 STOMACH morphine AdvReac Mild Drowsy Verified 03/17/23 10:41 orange juice AdvReac Mild Gastrointestinal Verified 03/17/23 10:41 Upset Home Medications Medication Instructions Recorded Confirmed Type cholecalciferol (vitamin D3) 125 5,000 unit PO QAM 02/27/19 05/15/23 History mcg (5,000 unit) tablet (Vitamin D3) epinephrine 0.3 mg/0.3 mL 0.3 mg IM Q3H PRN Allergic Reaction 02/27/19 05/15/23 History injection, auto-injector (EpiPen) ipratropium 0.5 mg-albuterol 3 mg 3 ml inhalation Q8H PRN SHORT OF 02/27/19 05/15/23 History (2.5 mg base)/3 mL nebulization BREATH soln mometasone-formoterol HFA 200 2 puff inhalation Q12H 02/27/19 05/15/23 History mcg-5 mcg/actuation aerosol inhaler (Dulera) promethazine 25 mg tablet 25 mg PO Q6H PRN Nausea 02/27/19 05/15/23 History bupropion HCl 300 mg 24 hr tablet, 300 mg PO QAM 10/06/20 05/15/23 History extended release (Wellbutrin XL) loratadine 10 mg tablet (Claritin) 10 mg PO QAM 04/29/21 05/15/23 History montelukast 10 mg tablet 10 mg PO HS 04/29/21 05/15/23 History (Singulair) albuterol sulfate 90 mcg/actuation 2 puff inhalation QID PRN 04/30/21 05/15/23 History aerosol inhaler tightness/sob lorazepam 0.5 mg tablet 0.5 mg PO UD PRN anxiety attack 08/13/21 05/15/23 History dihydroergotamine 0.5 mg/pump act. 1 spray intranasal .COMPLEX PRN 12/02/22 05/15/23 Rx (4 mg/mL) nasal spray (Migranal) migraines #8 mL topiramate 200 mg tablet (Topamax) 200 mg PO BID 30 days #60 tabs 12/02/22 05/15/23 Rx eptinezumab-jjmr 100 mg/mL 300 mg (3 mL) IV UD #3 mL 12/15/22 05/15/23 Rx intravenous solution (Vyepti) famotidine 20 mg tablet (Pepcid) 20 mg PO DAILY 03/16/23 05/15/23 History metoclopramide HCl 5 mg tablet 5 mg PO PM 05/15/23 05/15/23 History vilazodone 20 mg tablet 20 mg PO DAILY 05/15/23 05/15/23 History Patient History Medical History Anemia Anxiety Asthma inhalers/nebulizer prn Attention deficit disorder (ADD) Bipolar disorder Chronic obstructive pulmonary disease Cyst of pancreas (~11/2019) hx, surgery to be removed 2019 Depression Dysphagia frequent and has had dilation on various occasion Eosinophilic esophagitis Fibromyalgia Gastroparesis History of COVID-19 10/2021>resolved. History of kidney problems "abnormal levels in my bloodwork, recommended to see recorder helper gravity prospecting" ; f/u recorder helper gravity prospecting SHREE rich, 09/18/22 History of kidney stones History of lumbar puncture IBS (irritable bowel syndrome) Migraine topamax Multiple allergies Post traumatic stress disorder Sleep apnea CPAP (VERBALIZED HAS NOT BEEN USING) Thyroid disease "borderline" no medications Surgical History H/O exploratory laparotomy H/O inguinal hernia repair H/O splenectomy History of appendectomy History of section X 2 History of cholecystectomy History of colonoscopy History of cystoscopy History of dilatation and curettage X 3 History of esophagogastroduodenoscopy (EGD) last 11/2022 @ [facility] History of herniorrhaphy umbilical hernia repair History of hysterectomy JAG with BSO History of lithotripsy History of tooth extraction Hx of colonoscopy Family History Father Heart disease Other No family history of adverse response to anesthesia Social History Smoking Status: Never smoker Second Hand Exposure: No; Do You Dip or Chew Tobacco: No; Hx Alcohol Use: No Hx Substance Use: No Preferred Language: Maltese Communication Ability: Effective Project Management Consultant Required: No Beliefs That Will Affect Care: None Current Living Situation: Alone current occupational status: unemployed Other Information That Helps Us Care for You: No Feels Safe at Home: Yes Assistive Devices: Denture - Upper, Denture - Lower and Glasses Review of Systems Review of Systems: All systems reviewed & are unremarkable except as noted in HPI & below Physical Exam Constitutional: + thin; no acute distress Eyes: PERRL, conjunctivae normal, anicteric sclerae ENMT: external ear and nose normal, oropharynx normal Neck: trachea midline, no thyromegaly Respiratory: normal respiratory effort, lungs clear to auscultation Cardiovascular: RRR, no murmur, no edema Chest (Breasts): Additional Comments: Chest tender to palpation Gastrointestinal (Abdomen): normal bowel sounds, soft, nontender, no hepatosplenomegaly Musculoskeletal: no cyanosis or clubbing, extremities motor strength 5/5 Results & Data Vital Signs (Past 12 Hours) Vital Signs Temp Pulse Pulse Resp BP Pulse Ox O2 Del Method 05/16/23 08:14 36.5 C 67 17 113/71 97 Room Air 05/16/23 07:14 67 05/16/23 03:09 36.7 C 71 18 93/58 L 97 Room Air 05/15/23 22:47 37.0 C 73 18 93/59 L 97 Room Air 05/15/23 23:04 68 Laboratory Results Laboratory Results - last 24 hr 05/15/23 05/15/23 05/15/23 14:23 14:23 14:23 WBC 5.72 RBC 4.59 Hgb 13.5 Hct 41.7 MCV 90.8 MCH 29.4 MCHC 32.4 RDW Std Deviation 46.1 RDW Coeff of [place] 13.7 Plt Count 306 MPV 10.7 Immature Gran % (Auto) 0.2 Neut % (Auto) 33.2 Lymph % (Auto) 38.3 [place] % (Auto) 7.3 Eos % (Auto) 17.5 Baso % (Auto) 3.5 Neut # (Auto) 1.90 Lymph # (Auto) 2.19 [place] # (Auto) 0.42 Eos # (Auto) 1.00 H Baso # (Auto) 0.20 Immature Gran # (Auto) 0.01 PT 11.0 INR 1.0 APTT 26.6 PTT Ratio 0.9 D-Dimer Sodium 140 Potassium 3.9 Chloride 107 Carbon Dioxide 28 Anion Gap 5 BUN 12 Creatinine 1.07 Est Cr Clr Drug Dosing 50.1 Est GFR ( Amer) 69.1 Est GFR (Non-Af Amer) 59.6 BUN/Creatinine Ratio 11.2 Glucose 85 Estimat Average Glucose Hemoglobin A1c Calcium 9.6 Magnesium 2.0 Total Bilirubin 0.4 AST 19 ALT 15 Alkaline Phosphatase 89 Troponin I High Sens 2.7 Total Protein 7.3 Albumin 4.1 Globulin 3.2 Albumin/Globulin Ratio 1.3 Triglycerides Cholesterol LDL Cholesterol, Calc VLDL Cholesterol, Calc HDL Cholesterol Cholesterol/HDL Ratio Lipase 37 TSH SARS-CoV-2, RNA, NAAT 05/15/23 05/15/23 05/15/23 14:23 15:45 21:25 WBC RBC Hgb Hct MCV MCH MCHC RDW Std Deviation RDW Coeff of [place] Plt Count MPV Immature Gran % (Auto) Neut % (Auto) Lymph % (Auto) [place] % (Auto) Eos % (Auto) Baso % (Auto) Neut # (Auto) Lymph # (Auto) [place] # (Auto) Eos # (Auto) Baso # (Auto) Immature Gran # (Auto) PT INR APTT PTT Ratio D-Dimer < 190 Sodium Potassium Chloride Carbon Dioxide Anion Gap BUN Creatinine Est Cr Clr Drug Dosing Est GFR ( Amer) Est GFR (Non-Af Amer) BUN/Creatinine Ratio Glucose Estimat Average Glucose Hemoglobin A1c Calcium Magnesium Total Bilirubin AST ALT Alkaline Phosphatase Troponin I High Sens 2.5 Total Protein Albumin Globulin Albumin/Globulin Ratio Triglycerides Cholesterol LDL Cholesterol, Calc VLDL Cholesterol, Calc HDL Cholesterol Cholesterol/HDL Ratio Lipase TSH 3.616 SARS-CoV-2, RNA, NAAT 05/15/23 05/15/23 05/16/23 21:25 Unknown 05:45 WBC RBC Hgb Hct MCV MCH MCHC RDW Std Deviation RDW Coeff of [place] Plt Count MPV Immature Gran % (Auto) Neut % (Auto) Lymph % (Auto) [place] % (Auto) Eos % (Auto) Baso % (Auto) Neut # (Auto) Lymph # (Auto) [place] # (Auto) Eos # (Auto) Baso # (Auto) Immature Gran # (Auto) PT INR APTT PTT Ratio D-Dimer Sodium 140 Potassium 3.8 Chloride 110 H Carbon Dioxide 24 Anion Gap 6 BUN 13 Creatinine 1.15 Est Cr Clr Drug Dosing 47.3 Est GFR ( Amer) 63.4 Est GFR (Non-Af Amer) 54.7 BUN/Creatinine Ratio 11.3 Glucose 84 Estimat Average Glucose Hemoglobin A1c Calcium 8.8 Magnesium 1.9 Total Bilirubin AST ALT Alkaline Phosphatase Troponin I High Sens 6.1 Total Protein Albumin Globulin Albumin/Globulin Ratio Triglycerides 61 Cholesterol 170 LDL Cholesterol, Calc 113 VLDL Cholesterol, Calc 12 HDL Cholesterol 45 Cholesterol/HDL Ratio 3.8 Lipase TSH SARS-CoV-2, RNA, NAAT NEGATIVE 05/16/23 05:45 WBC RBC Hgb Hct MCV MCH MCHC RDW Std Deviation RDW Coeff of [place] Plt Count MPV Immature Gran % (Auto) Neut % (Auto) Lymph % (Auto) [place] % (Auto) Eos % (Auto) Baso % (Auto) Neut # (Auto) Lymph # (Auto) [place] # (Auto) Eos # (Auto) Baso # (Auto) Immature Gran # (Auto) PT INR APTT PTT Ratio D-Dimer Sodium Potassium Chloride Carbon Dioxide Anion Gap BUN Creatinine Est Cr Clr Drug Dosing Est GFR ( Amer) Est GFR (Non-Af Amer) BUN/Creatinine Ratio Glucose Estimat Average Glucose Pending Hemoglobin A1c Pending Calcium Magnesium Total Bilirubin AST ALT Alkaline Phosphatase Troponin I High Sens Total Protein Albumin Globulin Albumin/Globulin Ratio Triglycerides Cholesterol LDL Cholesterol, Calc VLDL Cholesterol, Calc HDL Cholesterol Cholesterol/HDL Ratio Lipase TSH SARS-CoV-2, RNA, NAAT
[2023-05-16] MEDS: ACETAMINOPHEN 325 MG TAB PO SCH ×3 (12:02→22:47)
[2023-05-16] MEDS ORDERED: KETOROLAC TROMETHAMINE 15 MG/ML VIAL IV ONE (12:16)
--- NOTE | 2023-05-16 12:32 | Hospitalist Progress Note ---
Date of Service May 16, 2023 Assessment & Plan (1) Atypical chest pain: Plan This is a 53-year-old female who has a significant past medical history of asthma, reflux esophagitis, gastroparesis, IBS, eosinophilic esophagitis, dysphagia, incontinence, CKD stage III, osteoporosis intolerance to alendronate, history of migraine, bipolar disorder, major depressive disorder who presents to ED secondary to chest pain that started at 1 AM. Atypical Chest pain Palpitations Patient presented to the ED with chest pain EKG personally reviewed; normal sinus rhythm; no ST or T wave changes. High sensitive troponin negative. Echocardiogram done; EF of 60-65%; no wall motion abnormalities. Continue pain control with Tylenol, lidocaine patch. Discussed with cardiology; chest pain likely noncardiac. No indication for stress test. CKD-3 bun/cr stable avoid nephrotoxic agents follows Dr. 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 Please note the above document was generated using voice recognition software. It may contain grammatical, syntax or spelling errors. Any formal questions or concerns about the content, text or information contained within the body of this dictation should be directly addressed to the provider for clarification Admission and Anticipated Discharge Date Admission Date: May 15, 2023 Subjective Patient seen and examined at bedside. Reports continued chest pain. Review of Systems Review of Systems: All systems reviewed & are unremarkable except as noted in Subjective Physical Exam Physical Exam: Constitutional: WD/WN, vitals as above, NAD, sitting up in bed, pleasant, conversing easily Respiratory: normal respiratory effort, lungs clear to auscultation, no wheeze, rales, rhonchi. Normal insp/exp effort, no accessory muscle use Cardiovascular: RRR, no murmur, no edema Vessels: no JVD or carotid bruit Chest: Tenderness on palpation on left upper chest. Abdomen: normal bowel sounds, soft, nontender, no hepatosplenomegaly Musculoskeletal: no cyanosis or clubbing, extremities motor strength 5/5 Skin: no rashes, warm and dry normal turgor Neurologic: PERRL, EOMI, accommodation nl, no face palsy, no dysarthria CN's II- XI intact bilaterally and moves all extremities Psychiatric: A+Ox3, euthymic affect Results & Data Results & Data Vital Signs (Past 12 Hours) Vital Signs Temp Pulse Pulse Resp BP Pulse Ox O2 Del Method 05/16/23 11:55 36.8 C 88 17 111/72 97 Room Air 05/16/23 08:14 36.5 C 67 17 113/71 97 Room Air 05/16/23 07:14 67 05/16/23 03:09 36.7 C 71 18 93/58 L 97 Room Air Laboratory Results Laboratory Results WBC 5.72 K/ul (4.8-10.8) 05/15/23 14:23 RBC 4.59 M/uL (4.20-5.40) 05/15/23 14:23 Hgb 13.5 g/dl (12.0-16.0) 05/15/23 14:23 Hct 41.7 % (37.0-47.0) 05/15/23 14:23 MCV 90.8 fL (80.0-100.0) 05/15/23 14:23 MCH 29.4 pg (25.0-34.0) 05/15/23 14:23 MCHC 32.4 g/dL (32.0-36.0) 05/15/23 14:23 RDW Std Deviation 46.1 fL (36.4-46.3) 05/15/23 14:23 RDW Coeff of [place] 13.7 % (11.5-14.5) 05/15/23 14:23 Plt Count 306 K/uL (130-400) 05/15/23 14:23 MPV 10.7 fL (9.4-12.4) 05/15/23 14:23 Immature Gran % (Auto) 0.2 % 05/15/23 14:23 Neut % (Auto) 33.2 % 05/15/23 14:23 Lymph % (Auto) 38.3 % 05/15/23 14:23 [place] % (Auto) 7.3 % 05/15/23 14:23 Eos % (Auto) 17.5 % 05/15/23 14:23 Baso % (Auto) 3.5 % 05/15/23 14:23 Neut # (Auto) 1.90 K/uL (1.40-6.50) 05/15/23 14:23 Lymph # (Auto) 2.19 K/uL (1.2-3.4) 05/15/23 14:23 [place] # (Auto) 0.42 K/uL (0.11-0.59) 05/15/23 14:23 Eos # (Auto) 1.00 K/uL (0-0.50) H 05/15/23 14:23 Baso # (Auto) 0.20 K/uL (0-0.2) 05/15/23 14:23 Immature Gran # (Auto) 0.01 K/uL (0.01-0.20) 05/15/23 14:23 PT 11.0 Seconds (9.0-12.0) 05/15/23 14:23 INR 1.0 (0.9-1.1) 05/15/23 14:23 APTT 26.6 Seconds (21.0-31.0) 05/15/23 14:23 PTT Ratio 0.9 05/15/23 14:23 D-Dimer < 190 ug/L FEU (0-500) 05/15/23 21:25 Sodium 140 mmol/L (136-145) 05/16/23 05:45 Potassium 3.8 mmol/L (3.5-5.1) 05/16/23 05:45 Chloride 110 mmol/L (98-107) H 05/16/23 05:45 Carbon Dioxide 24 mmol/L (21-32) 05/16/23 05:45 Anion Gap 6 (3-11) 05/16/23 05:45 BUN 13 mg/dl (6-23) 05/16/23 05:45 Creatinine 1.15 mg/dl (0.6-1.2) 05/16/23 05:45 Est Cr Clr Drug Dosing 47.3 ml/min 05/16/23 05:45 Est GFR ( Amer) 63.4 ml/min 05/16/23 05:45 Est GFR (Non-Af Amer) 54.7 ml/min 05/16/23 05:45 BUN/Creatinine Ratio 11.3 (10-20) 05/16/23 05:45 Glucose 84 mg/dl (70-99(Fasting)) 05/16/23 05:45 Calcium 8.8 mg/dl (8.6-10.3) 05/16/23 05:45 Magnesium 1.9 mg/dl (1.7-2.4) 05/16/23 05:45 Total Bilirubin 0.4 mg/dl (0.2-1.0) 05/15/23 14:23 AST 19 U/L (13-39) 05/15/23 14:23 ALT 15 U/L (7-52) 05/15/23 14:23 Alkaline Phosphatase 89 U/L (34-104) 05/15/23 14:23 Troponin I High Sens 6.1 pg/ml (0-14) 05/15/23 21:25 Total Protein 7.3 gm/dl (6.0-8.3) 05/15/23 14:23 Albumin 4.1 gm/dl (3.4-5.0) 05/15/23 14:23 Globulin 3.2 gm/dl (2.5-4.0) 05/15/23 14:23 Albumin/Globulin Ratio 1.3 (0.9-2) 05/15/23 14:23 Triglycerides 61 mg/dl (0-150) 05/16/23 05:45 Cholesterol 170 mg/dl (0-200) 05/16/23 05:45 LDL Cholesterol, Calc 113 mg/dl 05/16/23 05:45 VLDL Cholesterol, Calc 12 mg/dl (0-30) 05/16/23 05:45 HDL Cholesterol 45 mg/dl 05/16/23 05:45 Cholesterol/HDL Ratio 3.8 (0-5) 05/16/23 05:45 Lipase 37 U/L (11-82) 05/15/23 14:23 TSH 3.616 uIu/ml (0.300-4.500) 05/15/23 14:23 SARS-CoV-2, RNA, NAAT NEGATIVE (NEGATIVE) 05/15/23 Unknown Impressions Chest X-Ray 05/15/23 14:09 XR chest 1V portable CLINICAL HISTORY: Chest pain, nonspecific TECHNIQUE: Single frontal radiograph of the chest was obtained. Comparison: None available at the time of this dictation. FINDINGS: No lines and tubes are seen. Cardiomegaly is noted. The lungs are clear. No evidence of pleural effusion or pneumothorax. IMPRESSION: No acute chest disease. Cardiomegaly is noted. ACT 112: Negative or not required by law. Electronically signed by: Bruce Radford M.D. 05/15/2023 2:36 PM
[2023-05-16] MEDS: MONTELUKAST SODIUM 10 MG TABLET PO SCH (20:40)
[2023-05-16] MEDS: LIDOCAINE 5% 1 PATCH TD SCH (20:40)
[2023-05-16] MEDS: ENOXAPARIN INJ 40 MG/0.4 ML SYR SQ SCH (22:46)
[2023-05-17] MEDS ORDERED: OPTIRAY 320 100ml IV ONE (02:07)
--- NOTE | 2023-05-17 03:54 | CT Scan Report ---
Exam(s): CT ABDOMEN + PELVIS With Contrast IV Amt: 93 ml optiray 320 EXAM: CT Abdomen and Pelvis With Intravenous Contrast CLINICAL HISTORY: abd pain nv. TECHNIQUE: Axial computed tomography images of the abdomen and pelvis with intravenous contrast. CTDI is 8.11 mGy and DLP is 395.67 mGy-cm. Automated exposure control was utilized for the study. A dose lowering technique was utilized adhering to the principles of ALARA. CONTRAST: Patient received 93 ml optiray 320 of IV contrast COMPARISON: CT abdomen and pelvis dated 10/06/2020. FINDINGS: Lung bases: Unremarkable. No mass. No consolidation. ABDOMEN: Liver: Unremarkable. No mass. Gallbladder and bile ducts: Status post cholecystectomy. No ductal dilation. Pancreas: Postsurgical changes consistent with resection of the tail the pancreas. Spleen: Unremarkable. No splenomegaly. Adrenals: Unremarkable. No mass. Kidneys and ureters: Unremarkable. No solid mass. No hydronephrosis. Stomach and bowel: Fluid and gas dilation of the small bowel throughout the abdomen and pelvis without a focal transition point. There is also distention of the entire colon, initially was stool and fluid but moderate stool from the mid transverse colon throughout the rectosigmoid region. No obvious asymmetric bowel mucosal abnormality. PELVIS: Appendix: Postsurgical changes consistent with prior appendectomy. Bladder: Unremarkable. No mass. Reproductive: Unremarkable as visualized. ABDOMEN and PELVIS: Intraperitoneal space: No free intraperitoneal fluid or pneumoperitoneum. No abscess. Bones/joints: No acute fracture. No dislocation. Soft tissues: Unremarkable. Vasculature: Unremarkable. No abdominal aortic aneurysm. Lymph nodes: Unremarkable. No enlarged lymph nodes. IMPRESSION: 1. Fluid and gas dilation of the small bowel throughout the abdomen and pelvis without a focal transition point. There is also distention of the entire colon, initially was stool and fluid but moderate stool from the mid transverse colon throughout the rectosigmoid region. No obvious asymmetric bowel mucosal abnormality. Findings suggest colonic constipation with presumed reactive enteritis. However, serial radiographic evaluation or dedicated small bowel follow-through may provide additional detailed information, as appropriate. 2. No free intraperitoneal fluid or pneumoperitoneum. No abscess. 3. Incidental findings, as noted above. Electronically signed by: Javy Pike MD 05/17/23 03:53 AM
[2023-05-17] MEDS ORDERED: LACTATED RINGER'S 1,000 ML IV ONE (03:56)
--- NOTE | 2023-05-17 03:56 | Communication Note ---
Date of Service: May 17, 2023 Patient with abdominal pain, nausea, vomiting symptoms. Last bowel movement was few days ago as per RN. CT abdomen pelvis: 1. Fluid and gas dilation of the small bowel throughout the abdomen and pelvis without a focal transition point. There is also distention of the entire colon, initially was stool and fluid but moderate stool from the mid transverse colon throughout the rectosigmoid region. No obvious asymmetric bowel mucosal abnormality. Findings suggest colonic constipation with presumed reactive enteritis. However, serial radiographic evaluation or dedicated small bowel follow-through may provide additional detailed information, as appropriate. 2. No free intraperitoneal fluid or pneumoperitoneum. No abscess. AP Colonic constipation with reactive enteritis ? Recent narcotic medications possibly contributory Clear liquid diet for now Bowel regimen Relistor trial if without improvement
[2023-05-17] MEDS: LACTULOSE SYRUP 30 GM/45 ML UDP PO STA ×2 (05:01→05:13)
[2023-05-17] MEDS: DOCUSATE SODIUM/SENNA 50/8.6MG TAB PO SCH ×2 (05:01→21:54)
[2023-05-17] MEDS: ACETAMINOPHEN 325 MG TAB PO SCH ×4 (05:13→23:34)
[2023-05-17] MEDS ORDERED: bisacodyL 10 MG SUPP PR STA (05:14)
[2023-05-17] MEDS ORDERED: ACETAMINOPHEN 1,000 MG/100 ML VIAL IV PRN (05:17)
[2023-05-17] MEDS ORDERED: METHYLNALTREXONE BROMIDE 12 MG/0.6 ML VIAL SQ STA (05:18)
[2023-05-17 06:56] LABS: Basophils # (auto) 0.15 K/uL (0-0.2); Basophils % (auto) 1.5 %; Eosinophils # (auto) 0.74 K/uL (0-0.50); Eosinophils % (auto) 7.2 %; Hematocrit (blood only) 43.9 % (37.0-47.0); Hemoglobin 14.7 g/dl (12.0-16.0); Immature Granulocytes # (auto) 0.02 K/uL (0.01-0.20); Immature Granulocytes % (auto) 0.2 %; Lymphocytes % (auto) 11.7 %; Mean Corpuscular Hemoglobin 29.7 pg (25.0-34.0); Mean Corpuscular Hgb Conc 33.5 g/dL (32.0-36.0); Mean Corpuscular Volume 88.7 fL (80.0-100.0); Mean Platelet Volume 10.7 fL (9.4-12.4); Monocytes # (auto) 0.46 K/uL (0.11-0.59); Monocytes % (auto) 4.5 %; Neutrophils % (auto) 74.9 %; Platelet Count 329 K/uL (130-400); RDW Coefficient of Variation 13.8 % (11.5-14.5); RDW Standard Deviation 44.6 fL (36.4-46.3); Red Blood Count 4.95 M/uL (4.20-5.40); White Blood Count 10.27 K/ul (4.8-10.8)
[2023-05-17 07:13] LABS: BUN Creatinine Ratio 11.6 (10-20); Calcium 9.9 mg/dl (8.6-10.3); Creatinine Clr Calc Pharmacy 44.1 ml/min; Est GFR (African American) 59.6 ml/min; Est GFR (Non-African American) 51.4 ml/min; Potassium 3.9 mmol/L (3.5-5.1)
[2023-05-17 08:06] LABS: Estimated Average Glucose 105 mg/dl; Hemoglobin A1C 5.3 % (4.5-5.6)
--- NOTE | 2023-05-17 09:28 | Gastrointestinal Consultation ---
Date of Consultation May 17, 2023 Assessment & Plan (1) Atypical chest pain: 53 year old female with history ofasthma, reflux esophagitis, gastroparesis, IBS, EOE refractory to elimination diet, dilations, oral/topical steroids/singulair/xolair incontinence, CKD3, depression, migraines, bipolar disorder admitted through the ED w/ CP, GI asked to evaluate for nausea/vomiting and constipation. Recommend tap water eneam three times daily x 1 day May start BID miralax Antiemetics PRN OP follow up with regular GI team Thank you for allowing us to participate in the care of this patient. Please call with any acute changes, questions or concerns. Please see addendum below with additional recommendation from my supervising physician. Supervising Physician Co-Signing Physician Notes I saw and evaluated the patient. She is well-known to one of my partners for history of irritable bowel syndrome. Of note the patient did have imaging required on admission showed a large amount of stool and air within the colon. Based on review of her medications I suspect that most of her symptoms are related to a combination of her medications to include her SSRI, Wellbutrin and perhaps use of lorazepam. Recommendations Would highly recommend a bowel regimen for this patient, would initially start with MiraLAX 17 g twice daily for 1 week then change to 1 time daily thereafter. The patient may need something in addition such as amitiza or Linzess. History of Present Illness Reason for Consultation: n/v Requesting Physician: Maria Antonia Attending Physician: Jovan Em MD History of Present Illness 53 year old female with history ofasthma, reflux esophagitis, gastroparesis, IBS, EOE refractory to elimination diet, dilations, oral/topical steroids/singulair/xolair incontinence, CKD3, depression, migraines, bipolar disorder admitted through the ED w/ CP. GI asked to evaluate for nausea/vomiting. notes constipation x 3/4 days. Associated with decreased appetite, nausea/ vomiting feeling bloated. Had emesis after miralax yesterday but had small, formed BM after enema. CTAP 2022: Fluid and gas dilation of the small bowel throughout the abdomen and pelvis without a focal transition point. There is also distention of the entire colon, initially was stool and fluid but moderate stool from the mid transverse colon throughout the rectosigmoid region. No obvious asymmetric bowel mucosal abnormality. Findings suggest colonic constipation with presumed reactive enteritis. However, serial radiographic evaluation or dedicated small bowel follow-through may provide additional detailed information, as appropriate. No free intraperitoneal fluid or pneumoperitoneum. No abscess. GES 2022: Normal solid gastric emptying study. EGD 2022: - Esophageal mucosal changes secondary to eosinophilic esophagitis. Biopsied. Dilated. - Normal stomach. Biopsied. - Normal examined duodenum. Biopsied. EGD 2020: Esophageal mucosal changes consistent with eosinophilic esophagitis. Biopsied. Dilated. - Normal stomach. - Normal examined duodenum Colonoscopy 2020: Diverticulosis in the sigmoid colon. - One 2 mm polyp in the ascending colon, removed with a cold snare. Resected and retrieved. - The examination was otherwise normal EUS 2019: There was no sign of significant pathology in the ampulla. - There was no sign of significant pathology in the common bile duct. - Evidence of a cholecystectomy. - There was no evidence of significant pathology in the visualized portion of the liver. - Endosonographic images of the left adrenal gland were unremarkable. - There was no sign of significant pathology in the pancreatic head, pancreatic body, pancreatic neck and main pancreatic duct. - A 28 x 15 mm cystic lesion was seen in the pancreatic tail. 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 Fine needle aspiration for fluid performed. Allergies Allergy/AdvReac Type Severity Reaction Status Date / Time chicken derived Allergy Severe THROAT Verified 03/17/23 10:41 SWELLS ciprofloxacin Allergy Severe SWELLS UP Verified 03/17/23 10:41 THROAT AND CAN'T BREATHE egg Allergy Severe THROAT Verified 03/17/23 10:41 SWELLS hornet venom Allergy Severe SWELLS Verified 03/17/23 10:41 THROAT oxycodone Allergy Severe airway Verified 03/17/23 10:41 edema Poultry Allergy Severe "[place]" Verified 03/17/23 10:41 -- Throat swelling Fish Containing Products Allergy Intermediate Throat Verified 03/17/23 10:41 swells sesame seed Allergy Intermediate "Sesame" - Verified 03/17/23 10:41 + ALLERGY TEST sumatriptan Allergy Intermediate throat Verified 03/17/23 10:41 swelling sunflower seed Allergy Intermediate + ALLERGY Verified 03/17/23 10:41 TEST Quinolones Allergy Mild ITCHY RASH Verified 03/17/23 10:41 ON HEAD,CHEST,ARMS DURING IV INFUSION diphenhydramine AdvReac Intermediate IV Verified 03/17/23 10:41 GIVEN-"FELT DOPED UP AFTER INJECTED" aspirin AdvReac Mild UPSET Verified 03/17/23 10:41 STOMACH morphine AdvReac Mild Drowsy Verified 03/17/23 10:41 orange juice AdvReac Mild Gastrointestinal Verified 03/17/23 10:41 Upset Home Medications Medication Instructions Recorded Confirmed Type cholecalciferol (vitamin D3) 125 5,000 unit PO QAM 02/27/19 05/15/23 History mcg (5,000 unit) tablet (Vitamin D3) epinephrine 0.3 mg/0.3 mL 0.3 mg IM Q3H PRN Allergic Reaction 02/27/19 05/15/23 History injection, auto-injector (EpiPen) ipratropium 0.5 mg-albuterol 3 mg 3 ml inhalation Q8H PRN SHORT OF 02/27/19 05/15/23 History (2.5 mg base)/3 mL nebulization BREATH soln mometasone-formoterol HFA 200 2 puff inhalation Q12H 02/27/19 05/15/23 History mcg-5 mcg/actuation aerosol inhaler (Dulera) promethazine 25 mg tablet 25 mg PO Q6H PRN Nausea 02/27/19 05/15/23 History bupropion HCl 300 mg 24 hr tablet, 300 mg PO QAM 10/06/20 05/15/23 History extended release (Wellbutrin XL) loratadine 10 mg tablet (Claritin) 10 mg PO QAM 04/29/21 05/15/23 History montelukast 10 mg tablet 10 mg PO HS 04/29/21 05/15/23 History (Singulair) albuterol sulfate 90 mcg/actuation 2 puff inhalation QID PRN 04/30/21 05/15/23 History aerosol inhaler tightness/sob lorazepam 0.5 mg tablet 0.5 mg PO UD PRN anxiety attack 08/13/21 05/15/23 History dihydroergotamine 0.5 mg/pump act. 1 spray intranasal .COMPLEX PRN 12/02/22 05/15/23 Rx (4 mg/mL) nasal spray (Migranal) migraines #8 mL topiramate 200 mg tablet (Topamax) 200 mg PO BID 30 days #60 tabs 01/11/23 06/24/23 Rx eptinezumab-jjmr 100 mg/mL 300 mg (3 mL) IV UD #3 mL 12/15/22 05/15/23 Rx intravenous solution (Vyepti) famotidine 20 mg tablet (Pepcid) 20 mg PO DAILY 03/16/23 05/15/23 History metoclopramide HCl 5 mg tablet 5 mg PO PM 05/15/23 05/15/23 History vilazodone 20 mg tablet 20 mg PO DAILY 05/15/23 05/15/23 History Patient History Medical History Anemia Anxiety Asthma inhalers/nebulizer prn Attention deficit disorder (ADD) Bipolar disorder Chronic obstructive pulmonary disease Cyst of pancreas (~11/2019) hx, surgery to be removed 2019 Depression Dysphagia frequent and has had dilation on various occasion Eosinophilic esophagitis Fibromyalgia Gastroparesis History of COVID-19 10/2021>resolved. History of kidney problems "abnormal levels in my bloodwork, recommended to see service center manager" ; f/u service center manager SHREE rich, 09/18/22 History of kidney stones History of lumbar puncture IBS (irritable bowel syndrome) Migraine topamax Multiple allergies Post traumatic stress disorder Sleep apnea CPAP (VERBALIZED HAS NOT BEEN USING) Thyroid disease "borderline" no medications Surgical History H/O exploratory laparotomy H/O inguinal hernia repair H/O splenectomy History of appendectomy History of section X 2 History of cholecystectomy History of colonoscopy History of cystoscopy History of dilatation and curettage X 3 History of esophagogastroduodenoscopy (EGD) last 11/2022 @ [facility] History of herniorrhaphy umbilical hernia repair History of hysterectomy JAG with BSO History of lithotripsy History of tooth extraction Hx of colonoscopy Family History Father Heart disease Other No family history of adverse response to anesthesia Social History Smoking Status: Never smoker Second Hand Exposure: No; Do You Dip or Chew Tobacco: No; Hx Alcohol Use: No Hx Substance Use: No Preferred Language: Amharic Communication Ability: Effective Highway Inspector Required: No Beliefs That Will Affect Care: None Current Living Situation: Alone current occupational status: unemployed Other Information That Helps Us Care for You: No Feels Safe at Home: Yes Assistive Devices: Denture - Upper, Denture - Lower and Glasses Review of Systems Review of Systems: All systems reviewed & are unremarkable except as noted in HPI & below Physical Exam Constitutional: WD/WN, vitals as above Respiratory: normal respiratory effort, lungs clear to auscultation Cardiovascular: Rate/Rhythm: regular rate Gastrointestinal (Abdomen): Percussion/Palpation: + abdomen tender and abdomen soft Skin: no rashes, warm and dry Results & Data Vital Signs (Past 12 Hours) Vital Signs Temp Pulse Pulse Resp BP Pulse Ox O2 Del Method 05/17/23 07:39 36.8 C 77 16 98/64 L 96 Room Air 05/16/23 22:00 81 05/17/23 03:51 36.5 C 88 18 117/79 95 Room Air 05/16/23 23:18 36.8 C 76 18 119/82 99 Room Air Laboratory Results 05/17/23 05/17/23 05/16/23 Range/Units 06:23 06:23 05:45 WBC 10.27 (4.8-10.8) K/ul RBC 4.95 (4.20-5.40) M/uL Hgb 14.7 (12.0-16.0) g/dl Hct 43.9 (37.0-47.0) % MCV 88.7 (80.0-100.0) fL MCH 29.7 (25.0-34.0) pg MCHC 33.5 (32.0-36.0) g/dL RDW Std Deviation 44.6 (36.4-46.3) fL RDW Coeff of [place] 13.8 (11.5-14.5) % Plt Count 329 (130-400) K/uL MPV 10.7 (9.4-12.4) fL Immature Gran % (Auto) 0.2 % Neut % (Auto) 74.9 % Lymph % (Auto) 11.7 % [place] % (Auto) 4.5 % Eos % (Auto) 7.2 % Baso % (Auto) 1.5 % Neut # (Auto) 7.70 H (1.40-6.50) K/uL Lymph # (Auto) 1.20 (1.2-3.4) K/uL [place] # (Auto) 0.46 (0.11-0.59) K/uL Eos # (Auto) 0.74 H (0-0.50) K/uL Baso # (Auto) 0.15 (0-0.2) K/uL Immature Gran # (Auto) 0.02 (0.01-0.20) K/uL Sodium 138 (136-145) mmol/L Potassium 3.9 (3.5-5.1) mmol/L Chloride 106 (98-107) mmol/L Carbon Dioxide 24 (21-32) mmol/L Anion Gap 8 (3-11) BUN 14 (6-23) mg/dl Creatinine 1.21 H (0.6-1.2) mg/dl Est Cr Clr Drug Dosing 44.1 ml/min Est GFR ( Amer) 59.6 ml/min Est GFR (Non-Af Amer) 51.4 ml/min BUN/Creatinine Ratio 11.6 (10-20) Glucose 108 H (70-99(Fasting)) mg/dl Estimat Average Glucose 105 mg/dl Hemoglobin A1c 5.3 (4.5-5.6) % Calcium 9.9 (8.6-10.3) mg/dl
[2023-05-17] MEDS: TOPIRAMATE 100 MG TAB PO SCH ×2 (09:56→21:52)
[2023-05-17] MEDS: FAMOTIDINE 20 MG TAB PO SCH (09:56)
[2023-05-17] MEDS: buPROPion XL 300 MG TABCR PO SCH (09:56)
[2023-05-17] MEDS: FLUTICASONE/VILANTEROL 200/25MCG 14 PUFFS/INHALER INH SCH (09:56)
[2023-05-17] MEDS: CHOLECALCIFEROL 5,000 UNITS 125 MCG TAB PO SCH (09:56)
[2023-05-17] MEDS: LORATADINE 10 MG TAB PO SCH (09:56)
[2023-05-17] MEDS: PROMETHAZINE HCL 6.25 MG in SODIUM CHLORIDE 0.9% 50 ML IV PRN ×2 (11:18→23:34)
[2023-05-17] MEDS ORDERED: MAGNESIUM HYDROXIDE SUSP 30 ML UDC PO ONE (11:34)
--- NOTE | 2023-05-17 11:53 | Hospitalist Progress Note ---
Date of Service May 17, 2023 Assessment & Plan (1) Atypical chest pain: Plan This is a 53-year-old female who has a significant past medical history of asthma, reflux esophagitis, gastroparesis, IBS, eosinophilic esophagitis, dysphagia, incontinence, CKD stage III, osteoporosis intolerance to alendronate, history of migraine, bipolar disorder, major depressive disorder who presents to ED secondary to chest pain that started at 1 AM. Atypical Chest pain Palpitations Patient presented to the ED with chest pain EKG personally reviewed; normal sinus rhythm; no ST or T wave changes. High sensitive troponin negative. Echocardiogram done; EF of 60-65%; no wall motion abnormalities. Continue pain control with Tylenol, lidocaine patch. Discussed with cardiology; chest pain likely noncardiac. No indication for stress test. Chronic constipation with reactive enteritis On the night of 02/13; patient had nausea vomiting and abdominal pain. She underwent CT abdomen and pelvis. CT abdomen pelvis reviewed; fluid and gaseous dilation of small bowel throughout the abdomen and pelvis without a focal transition point. Findings history of chronic constipation with presumed reactive enteritis. GI consulted; recommend aggressive bowel regimen with tap-water enema 3 times a day CKD-3 bun/cr stable avoid nephrotoxic agents follows Dr. 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 Please note the above document was generated using voice recognition software. It may contain grammatical, syntax or spelling errors. Any formal questions or concerns about the content, text or information contained within the body of this dictation should be directly addressed to the provider for clarification Admission and Anticipated Discharge Date Admission Date: May 17, 2023 Subjective Overnight, patient had abdominal pain, nausea and vomiting. CT abdomen pelvis was done which showed fluid and gas dilation of small bowel throughout the abdomen without transient focal point. Finding suggestive of colonic constipation with reactive enteritis. Patient had small bowel movement in the morning. Review of Systems Review of Systems: All systems reviewed & are unremarkable except as noted in Subjective Physical Exam Physical Exam: Constitutional: WD/WN, vitals as above, NAD, sitting up in bed, pleasant, conversing easily Respiratory: normal respiratory effort, lungs clear to auscultation, no wheeze, rales, rhonchi. Normal insp/exp effort, no accessory muscle use Cardiovascular: RRR, no murmur, no edema Vessels: no JVD or carotid bruit Chest: Tenderness on palpation on left upper chest. Abdomen: Soft, nontender. Bowel sound present. Musculoskeletal: no cyanosis or clubbing, extremities motor strength 5/5 Skin: no rashes, warm and dry normal turgor Neurologic: PERRL, EOMI, accommodation nl, no face palsy, no dysarthria CN's II- XI intact bilaterally and moves all extremities Psychiatric: A+Ox3, euthymic affect Results & Data Results & Data Vital Signs (Past 12 Hours) Vital Signs Temp Pulse Pulse Resp BP Pulse Ox O2 Del Method 05/17/23 08:00 74 05/17/23 11:30 36.7 C 78 16 96/66 L 96 Room Air 05/17/23 07:39 36.8 C 77 16 98/64 L 96 Room Air 05/17/23 03:51 36.5 C 88 18 117/79 95 Room Air Laboratory Results Laboratory Results WBC 10.27 K/ul (4.8-10.8) 05/17/23 06: RBC 4.95 M/uL (4.20-5.40) 05/17/23 06: Hgb 14.7 g/dl (12.0-16.0) 05/17/23 06: Hct 43.9 % (37.0-47.0) 05/17/23: MCV 88.7 fL (80.0-100.0) 05/17/23: MCH 29.7 pg (25.0-34.0) 05/17/23 06: MCHC 33.5 g/dL (32.0-36.0) 05/17/23: RDW Std Deviation 44.6 fL (36.4-46.3) 05/17/23 06: RDW Coeff of [place] 13.8 % (11.5-14.5) 05/17/23 06: Plt Count 329 K/uL (130-400) 05/17/23 06: MPV 10.7 fL (9.4-12.4) 05/17/23 06: Immature Gran % (Auto) 0.2 % 05/17/23 06: Neut % (Auto) 74.9 % 05/17/23 06:23 Lymph % (Auto) 11.7 % 05/17/23 06:23 [place] % (Auto) 4.5 % 05/17/23 06:23 Eos % (Auto) 7.2 % 05/17/23 06: Baso % (Auto) 1.5 % 05/17/23: Neut # (Auto) 7.70 K/uL (1.40-6.50) H 05/17/23 06: Lymph # (Auto) 1.20 K/uL (1.2-3.4) 05/17/23 06: [place] # (Auto) 0.46 K/uL (0.11-0.59) 05/17/23 06:23 Eos # (Auto) 0.74 K/uL (0-0.50) H 05/17/23 06: Baso # (Auto) 0.15 K/uL (0-0.2) 05/17/23 06: Immature Gran # (Auto) 0.02 K/uL (0.01-0.20) 05/17/23 06: PT 11.0 Seconds (9.0-12.0) 05/15/23 14:23 INR 1.0 (0.9-1.1) 05/15/23 14:23 APTT 26.6 Seconds (21.0-31.0) 05/15/23 14: PTT Ratio 0.9 05/15/23 14:23 D-Dimer < 190 ug/L FEU (0-500) 05/15/23 21:25 Sodium 138 mmol/L (136-145) 05/17/23 06:23 Potassium 3.9 mmol/L (3.5-5.1) 05/17/23 06: Chloride 106 mmol/L (98-107) 05/17/23 06:23 Carbon Dioxide 24 mmol/L (21-32) 05/17/23 06:23 Anion Gap 8 (3-11) 05/17/23 06:23 BUN 14 mg/dl (6-23) 05/17/23 06:23 Creatinine 1.21 mg/dl (0.6-1.2) H 05/17/23 06:23 Est Cr Clr Drug Dosing 44.1 ml/min 05/17/23 06:23 Est GFR ( Amer) 59.6 ml/min 05/17/23 06:23 Est GFR (Non-Af Amer) 51.4 ml/min 05/17/23 06:23 BUN/Creatinine Ratio 11.6 (10-20) 05/17/23 06:23 Glucose 108 mg/dl (70-99(Fasting)) H 05/17/23 06:23 Estimat Average Glucose 105 mg/dl 05/16/23 05:45 Hemoglobin A1c 5.3 % (4.5-5.6) 05/16/23 05:45 Calcium 9.9 mg/dl (8.6-10.3) 05/17/23 06:23 Magnesium 1.9 mg/dl (1.7-2.4) 05/16/23 05:45 Total Bilirubin 0.4 mg/dl (0.2-1.0) 05/15/23 14:23 AST 19 U/L (13-39) 05/15/23 14:23 ALT 15 U/L (7-52) 05/15/23 14:23 Alkaline Phosphatase 89 U/L (34-104) 05/15/23 14:23 Troponin I High Sens 6.1 pg/ml (0-14) 05/15/23 21:25 Total Protein 7.3 gm/dl (6.0-8.3) 05/15/23 14:23 Albumin 4.1 gm/dl (3.4-5.0) 05/15/23 14:23 Globulin 3.2 gm/dl (2.5-4.0) 05/15/23 14:23 Albumin/Globulin Ratio 1.3 (0.9-2) 05/15/23 14:23 Triglycerides 61 mg/dl (0-150) 05/16/23 05:45 Cholesterol 170 mg/dl (0-200) 05/16/23 05:45 LDL Cholesterol, Calc 113 mg/dl 05/16/23 05:45 VLDL Cholesterol, Calc 12 mg/dl (0-30) 05/16/23 05:45 HDL Cholesterol 45 mg/dl 05/16/23 05:45 Cholesterol/HDL Ratio 3.8 (0-5) 05/16/23 05:45 Lipase 37 U/L (11-82) 05/15/23 14:23 TSH 3.616 uIu/ml (0.300-4.500) 05/15/23 14:23 SARS-CoV-2, RNA, NAAT NEGATIVE (NEGATIVE) 05/15/23 Unknown Impressions Chest X-Ray 05/15/23 14:09 XR chest 1V portable CLINICAL HISTORY: Chest pain, nonspecific TECHNIQUE: Single frontal radiograph of the chest was obtained. Comparison: None available at the time of this dictation. FINDINGS: No lines and tubes are seen. Cardiomegaly is noted. The lungs are clear. No evidence of pleural effusion or pneumothorax. IMPRESSION: No acute chest disease. Cardiomegaly is noted. ACT 112: Negative or not required by law. Electronically signed by: Bruce Radford M.D. 05/15/2023 2:36 PM Abdomen/Pelvis CT 05/17/23 01:45 Exam(s): CT ABDOMEN + PELVIS With Contrast IV Amt: 93 ml optiray 320 EXAM: CT Abdomen and Pelvis With Intravenous Contrast CLINICAL HISTORY: abd pain nv. TECHNIQUE: Axial computed tomography images of the abdomen and pelvis with intravenous contrast. CTDI is 8.11 mGy and DLP is 395.67 mGy-cm. Automated exposure control was utilized for the study. A dose lowering technique was utilized adhering to the principles of ALARA. CONTRAST: Patient received 93 ml optiray 320 of IV contrast COMPARISON: CT abdomen and pelvis dated 10/06/2020. FINDINGS: Lung bases: Unremarkable. No mass. No consolidation. ABDOMEN: Liver: Unremarkable. No mass. Gallbladder and bile ducts: Status post cholecystectomy. No ductal dilation. Pancreas: Postsurgical changes consistent with resection of the tail the pancreas. Spleen: Unremarkable. No splenomegaly. Adrenals: Unremarkable. No mass. Kidneys and ureters: Unremarkable. No solid mass. No hydronephrosis. Stomach and bowel: Fluid and gas dilation of the small bowel throughout the abdomen and pelvis without a focal transition point. There is also distention of the entire colon, initially was stool and fluid but moderate stool from the mid transverse colon throughout the rectosigmoid region. No obvious asymmetric bowel mucosal abnormality. PELVIS: Appendix: Postsurgical changes consistent with prior appendectomy. Bladder: Unremarkable. No mass. Reproductive: Unremarkable as visualized. ABDOMEN and PELVIS: Intraperitoneal space: No free intraperitoneal fluid or pneumoperitoneum. No abscess. Bones/joints: No acute fracture. No dislocation. Soft tissues: Unremarkable. Vasculature: Unremarkable. No abdominal aortic aneurysm. Lymph nodes: Unremarkable. No enlarged lymph nodes. IMPRESSION: 1. Fluid and gas dilation of the small bowel throughout the abdomen and pelvis without a focal transition point. There is also distention of the entire colon, initially was stool and fluid but moderate stool from the mid transverse colon throughout the rectosigmoid region. No obvious asymmetric bowel mucosal abnormality. Findings suggest colonic constipation with presumed reactive enteritis. However, serial radiographic evaluation or dedicated small bowel follow-through may provide additional detailed information, as appropriate. 2. No free intraperitoneal fluid or pneumoperitoneum. No abscess. 3. Incidental findings, as noted above. Electronically signed by: Javy Pike MD 05/17/23 03:53 AM
[2023-05-17] MEDS: LIDOCAINE 5% 1 PATCH TD SCH (21:50)
[2023-05-17] MEDS: MONTELUKAST SODIUM 10 MG TABLET PO SCH (21:52)
[2023-05-17] MEDS: ENOXAPARIN INJ 40 MG/0.4 ML SYR SQ SCH (21:53)
[2023-05-18] MEDS: ACETAMINOPHEN 325 MG TAB PO SCH ×2 (05:47→11:16)
[2023-05-18 07:06] LABS: Basophils # (auto) 0.15 K/uL (0-0.2); Basophils % (auto) 1.7 %; Eosinophils # (auto) 1.17 K/uL (0-0.50); Eosinophils % (auto) 13.6 %; Hematocrit (blood only) 37.5 % (37.0-47.0); Hemoglobin 12.2 g/dl (12.0-16.0); Immature Granulocytes # (auto) 0.02 K/uL (0.01-0.20); Immature Granulocytes % (auto) 0.2 %; Lymphocytes # (auto) 3.14 K/uL (1.2-3.4); Lymphocytes % (auto) 36.6 %; Mean Corpuscular Hemoglobin 29.9 pg (25.0-34.0); Mean Corpuscular Hgb Conc 32.5 g/dL (32.0-36.0); Mean Corpuscular Volume 91.9 fL (80.0-100.0); Mean Platelet Volume 10.8 fL (9.4-12.4); Monocytes # (auto) 0.57 K/uL (0.11-0.59); Monocytes % (auto) 6.6 %; Neutrophils # (auto) 3.54 K/uL (1.40-6.50); Neutrophils % (auto) 41.3 %; Platelet Count 279 K/uL (130-400); RDW Coefficient of Variation 13.8 % (11.5-14.5); RDW Standard Deviation 46.5 fL (36.4-46.3); Red Blood Count 4.08 M/uL (4.20-5.40); White Blood Count 8.59 K/ul (4.8-10.8)
[2023-05-18 07:39] LABS: BUN Creatinine Ratio 12.7 (10-20); Calcium 8.5 mg/dl (8.6-10.3); Creatinine Clr Calc Pharmacy 45.3 ml/min; Est GFR (African American) 61.4 ml/min; Potassium 3.8 mmol/L (3.5-5.1)
--- NOTE | 2023-05-18 07:52 | Electrocardiogram Report ---
Test Reason : Blood Pressure : / mmHG Vent. Rate : 074 BPM Atrial Rate : 074 BPM P-R Int : 148 ms QRS Dur : 078 ms QT Int : 364 ms P-R-T Axes : 040 -13 032 degrees QTc Int : 404 ms Poor data quality, interpretation may be adversely affected Normal sinus rhythm Possible Left atrial enlargement Nonspecific ST and T wave abnormality Abnormal ECG When compared with ECG of 15-MAY-2023 14:30, Nonspecific T wave abnormality has replaced inverted T waves in Inferior leads Confirmed by Conor Santos ([id number]) on 05/18/2023 7:52:09 AM Referred By: REFERRED SELF Confirmed By:Conor Santos
--- NOTE | 2023-05-18 08:11 | Electrocardiogram Report ---
Test Reason : Blood Pressure : / mmHG Vent. Rate : 067 BPM Atrial Rate : 067 BPM P-R Int : 160 ms QRS Dur : 078 ms QT Int : 382 ms P-R-T Axes : 045 -15 024 degrees QTc Int : 403 ms Normal sinus rhythm Possible Left atrial enlargement Nonspecific ST abnormality Abnormal ECG When compared with ECG of 15-MAY-2023 21:33, (unconfirmed) No significant change was found Confirmed by Conor Santos ([id number]) on 05/18/2023 8:11:17 AM Referred By: REFERRED SELF Confirmed By:Conor Santos
[2023-05-18] MEDS: LORATADINE 10 MG TAB PO SCH (09:12)
[2023-05-18] MEDS: FLUTICASONE/VILANTEROL 200/25MCG 14 PUFFS/INHALER INH SCH (09:12)
[2023-05-18] MEDS: CHOLECALCIFEROL 5,000 UNITS 125 MCG TAB PO SCH (09:13)
[2023-05-18] MEDS: DOCUSATE SODIUM/SENNA 50/8.6MG TAB PO SCH (09:13)
[2023-05-18] MEDS: buPROPion XL 300 MG TABCR PO SCH (09:13)
[2023-05-18] MEDS: FAMOTIDINE 20 MG TAB PO SCH (09:13)
[2023-05-18] MEDS: TOPIRAMATE 100 MG TAB PO SCH (09:13)
--- NOTE | 2023-05-18 12:13 | Discharge Summary ---
Date of Service May 18, 2023 Admission HPI Per Admitting Provider This is a 53-year-old female who has a significant past medical history of asthma, reflux esophagitis, gastroparesis, IBS, history of eosinophilic esophagitis, dysphagia, incontinence, CKD stage III, history of migraine, bipolar disorder, major depressive disorder who presents to ED secondary to chest pain that started at 2 AM. 2 weeks ago she felt like her heart wasn't beating appropriately. At approx 2am this morning she thought her heart was going really slow and really fast. She then developed pain that is located substernal/left chest and radiates down her left arm and into her back. Pain goes the whole way into her lower back. She also complains of bilateral leg cramping. She denies hx of RLS. She couldn't sleep all night b/c the whole leg below knee was cramping. She complains of sob that is new. It started this morning with the chest pain/racing. She denies syncope. She denies hx of heart disease or arrhythmia. Chest pain is not improved since coming to the hospital it is about the same. She denies tick bite, rash or recent illness. She does have chronic tremors which she feels is at baseline and she currently denies feeling anxious. She denies similar pain in the past and this is entirely new. She has hx of migraines and she takes an injection every 3 months. Admission Exam Per Admitting Provider Constitutional: WD/WN, vitals as above, NAD, sitting up in bed, pleasant, conversing easily Respiratory: normal respiratory effort, lungs clear to auscultation, no wheeze, rales, rhonchi. Normal insp/exp effort, no accessory muscle use Cardiovascular: RRR, no murmur, no edema Vessels: no JVD or carotid bruit Chest: Tenderness on palpation on left upper chest. Abdomen: Soft, nontender. Bowel sound present. Musculoskeletal: no cyanosis or clubbing, extremities motor strength 5/5 Skin: no rashes, warm and dry normal turgor Neurologic: PERRL, EOMI, accommodation nl, no face palsy, no dysarthria CN's II- XI intact bilaterally and moves all extremities Psychiatric: A+Ox3, euthymic affect Principal Diagnosis Atypical Chest pain Chronic constipation with reactive enteritis Discharge Exam Constitutional: WD/WN, vitals as above, NAD, sitting up in bed, pleasant, conversing easily Respiratory: normal respiratory effort, lungs clear to auscultation, no wheeze, rales, rhonchi. Normal insp/exp effort, no accessory muscle use Cardiovascular: RRR, no murmur, no edema Vessels: no JVD or carotid bruit Chest: Tenderness on palpation on left upper chest. Abdomen: Soft, nontender. Bowel sound present. Musculoskeletal: no cyanosis or clubbing, extremities motor strength 5/5 Skin: no rashes, warm and dry normal turgor Neurologic: PERRL, EOMI, accommodation nl, no face palsy, no dysarthria CN's II- XI intact bilaterally and moves all extremities Psychiatric: A+Ox3, euthymic affect Discharge Data Allergies Allergy/AdvReac Type Severity Reaction Status Date / Time chicken derived Allergy Severe THROAT Verified 03/17/23 10:41 SWELLS ciprofloxacin Allergy Severe SWELLS UP Verified 03/17/23 10:41 THROAT AND CAN'T BREATHE egg Allergy Severe THROAT Verified 03/17/23 10:41 SWELLS hornet venom Allergy Severe SWELLS Verified 03/17/23 10:41 THROAT oxycodone Allergy Severe airway Verified 03/17/23 10:41 edema Poultry Allergy Severe "[place]" Verified 03/17/23 10:41 -- Throat swelling Fish Containing Products Allergy Intermediate Throat Verified 03/17/23 10:41 swells sesame seed Allergy Intermediate "Sesame" - Verified 03/17/23 10:41 + ALLERGY TEST sumatriptan Allergy Intermediate throat Verified 03/17/23 10:41 swelling sunflower seed Allergy Intermediate + ALLERGY Verified 03/17/23 10:41 TEST Quinolones Allergy Mild ITCHY RASH Verified 03/17/23 10:41 ON HEAD,CHEST,ARMS DURING IV INFUSION diphenhydramine AdvReac Intermediate IV Verified 03/17/23 10:41 GIVEN-"FELT DOPED UP AFTER INJECTED" aspirin AdvReac Mild UPSET Verified 03/17/23 10:41 STOMACH morphine AdvReac Mild Drowsy Verified 03/17/23 10:41 orange juice AdvReac Mild Gastrointestinal Verified 03/17/23 10:41 Upset Consultations 05/15/23 15:57 ED Decision to Admit Stat 05/16/23 07:53 Consult Cardiology Routine 05/17/23 09:12 Consult Gastroenterology Routine Ordered Studies 05/17/23 01:45 CT Abd and Pelvis [CT abd pelvis IV con only] Stat Hospital Course (1) Atypical chest pain: Plan This is a 53-year-old female who has a significant past medical history of asthma, reflux esophagitis, gastroparesis, IBS, eosinophilic esophagitis, dysphagia, incontinence, CKD stage III, osteoporosis intolerance to alendronate, history of migraine, bipolar disorder, major depressive disorder who presents to ED secondary to chest pain that started at 1 AM. Patient was admitted to medical floor and underwent treatment for following condition. Atypical Chest pain Palpitations Patient presented to the ED with chest pain EKG personally reviewed; normal sinus rhythm; no ST or T wave changes. High sensitive troponin negative. Echocardiogram done; EF of 60-65%; no wall motion abnormalities. Continue pain control with Tylenol, lidocaine patch. Discussed with cardiology; chest pain likely noncardiac. No indication for stress test. At discharge, patient's chest pain had improved with Tylenol and lidocaine patch. She was discharged home with lidocaine patch and Tylenol as needed. Chronic constipation with reactive enteritis On the night of 02/13; patient had nausea vomiting and abdominal pain. She underwent CT abdomen and pelvis. CT abdomen pelvis reviewed; fluid and gaseous dilation of small bowel throughout the abdomen and pelvis without a focal transition point. Findings history of chronic constipation with presumed reactive enteritis. GI consulted; recommend aggressive bowel regimen with tap-water enema 3 times a day At discharge, patient was having regular bowel movement. She was prescribed milk of magnesia and MiraLAX for constipation. Please note the above document was generated using voice recognition software. It may contain grammatical, syntax or spelling errors. Any formal questions or concerns about the content, text or information contained within the body of this dictation should be directly addressed to the provider for clarification Total Time Total Time Spent Total Time Spent (In Minutes): 45 Total Time Includes: Examination of the Patient, Discharge Planning, Medication Reconciliation, Communication With Other Providers and Other Discharge Plan Discharge Items Patient Disposition: Home - Self-Care Reason For Visit: SEVERE CHEST PAIN,LEG CRAMP Discharge Diagnosis: Atypical Chest pain Palpitations Chronic constipation with reactive enteritis Activity: Resume your previous activity Non-emergency contact: Primary Care Provider Call non-emergency contact if: you have any medication questions and your symptoms worsen Follow-up/Referrals: Miesha Robison DO [Primary Care Provider] - Diet: Regular Addtl Attending Provider Instructions: You were admitted to the hospital with chest pain. Your evaluated by cardiology and underwent echocardiogram. Echocardiogram showed good heart function with no significant abnormality. The likely cause for the chest pain is due to musculoskeletal cause. You are prescribed lidocaine patch to be applied on the chest. You were also found to have chronic constipation with reactive enteritis. Please take MiraLAX twice daily and milk of magnesia once a day to ensure regular bowel movements. You can decrease the dose of laxative once you have regular bowel movements. Please follow-up with your primary care doctor. Pending Studies at Discharge: No Stand-Alone Forms: [facility], Smoking Cessation Medications and DC Order Prescriptions: New polyethylene glycol 3350 [Miralax] 17 gram Powder In Packet 17 g PO DAILY Qty: 30 0RF magnesium hydroxide [Milk of Magnesia] 400 mg/5 mL Suspension 30 ml PO DAILY Qty: 355 0RF lidocaine 4 % adhesive patch,medicated 1 patch topical DAILY Qty: 10 0RF Rx Instructions: may leave on for up to 12 hrs Continued Vyepti 100 mg/mL solution 300 mg IV UD Qty: 3 3RF Rx Instructions: 300 mg IV EVERY THREE MONTHS-PREMEDICATE WITH 40MG IV Solu-Medrol and 10MG ZYRTEC PO; May 31 is next dose topiramate [Topamax] 200 mg tablet 200 mg PO BID 30 Days Qty: 60 6RF dihydroergotamine [Migranal] 0.5 mg/pump act. (4 mg/mL) spray,non-aerosol 1 spray INTRANASAL .COMPLEX PRN (Reason: migraines) Qty: 8 6RF Rx Instructions: 1 spray per nostril at onset of migraine, repeat in 15 minutes for one dose, max 8 sprays/week ipratropium-albuterol 0.5 mg-3 mg(2.5 mg base)/3 mL Solution For Nebulization 3 ml INHALATION Q8H PRN (Reason: SHORT OF BREATH) promethazine 25 mg Tablet 25 mg PO Q6H PRN (Reason: Nausea) epinephrine [EpiPen] 0.3 mg/0.3 mL Auto-Injector 0.3 mg IM Q3H PRN (Reason: Allergic Reaction) cholecalciferol (vitamin D3) [Vitamin D3] 5,000 unit Tablet 5,000 unit PO QAM Dulera 200-5 mcg/actuation Hfa Aerosol Inhaler 2 puff INHALATION Q12H bupropion HCl [Wellbutrin XL] 300 mg tablet extended release 24 hr 300 mg PO QAM montelukast [Singulair] 10 mg Tablet 10 mg PO HS loratadine [Claritin] 10 mg Tablet 10 mg PO QAM albuterol sulfate 90 mcg/actuation HFA aerosol inhaler 2 puff INHALATION QID PRN (Reason: tightness/sob) lorazepam 0.5 mg Tablet 0.5 mg PO UD PRN (Reason: anxiety attack) famotidine [Pepcid] 20 mg Tablet 20 mg PO DAILY metoclopramide HCl 5 mg tablet 5 mg PO PM vilazodone 20 mg Tablet 20 mg PO DAILY Rx Instructions: must administer with a meal/food Discharge Orders: Discharge Order (Routine); Ordered 05/18/23 Ordered By: Jovan Em Admission Data Admit Date/Time: 05/17/23 11:36 Attending Provider: Jovan Em Admit Provider: Thong Retana Primary Care Provider: Miesha Robison Other Providers: Thong Retana ; Anaid Ryan ; Antonio Abdi ; Dilip Soto ; Matteo Robison ; Oni Silva ; Izaiah Delvalle ; Chanda Sharpe ; Sania Pearson ; Anaid Singh ; Jesus Mejia ; Luis Gonzalez ; Nelly Felipe ; Gagan Sweeney ; Jasmyne Berry ; Emma Johnson ; Brisa Marroquin ; Gavi Blount ; Max Pennington ; Chai Polanco ; Gail aKba ; Dayne Burrell ; Bhanu Castañeda ; Angela Hall ; Carol Armendariz ; Jessica Chavez ; Meredith Harrison ; Dieter Austin ; Yoel Lezama ; Erwin Frank ; Anaid Montilla ; Brian Logan Jr Other Interventions: Discharge Summary Assessment (RN) Last Done: 05/18/23 11:11
== END 2023-05-18 18:00 | disposition home or self-care (01) | DRG 313 ==
LOC: 2N 13:42 → ED 13:42 → SUATTDRO 16:12 → 2N 17:11